=== PATIENT | male | born 1935 | race Caucasian/White ===

== ENCOUNTER 2016-09-01 12:02 | Emergency (ER) | payer OTHER ==
[2016-09-01 12:23] VITALS: BP 185/74; BMI 28.1
[2016-09-01] MEDS ORDERED: ZOFRAN INJ 4 MG VIAL IVP ONE (12:23)
[2016-09-01] MEDS ORDERED: ZOFRAN INJ 4 MG VIAL ONE (12:24)
[2016-09-01] MEDS ORDERED: NS 1000 ML 1,000 ML IV ONE (12:24)
--- NOTE | 2016-09-01 12:25 | DR.GENAD ---
HPI - HPI Comment HPI Comment: PATIENT OUT WORKING ON [employer] AND [employer]ROUNDING STARTED TO SPIN. LASTED OVER ONE HOUR. WAS WEAK AND SWEATY THEN HE CALL EMS. HIS VITALS WERE FINE EXCEPT FOR BP SLIGHTLY ELEVATED. DENIES CHEST PAIN. NO HEADACHE. GLUCOSE WAS NORMAL PER EMS. HE IS A DIABETIC. - Complaint/Symptoms Chief Complaint Doctors Comments: DIZZINESS. - Nurses notes reviewed Nurses Notes Review: Yes - Source History Provided: Patient - Mode of Arrival Mode of Arrival: Stretcher - Timing Came on: Suddenly - Duration Duration: Constant Duration: Hours - Severity Severity: Moderate PMH - PMH Past Medical History: Coronary Artery Disease, Diabetes, Hypertension, Kidney Stones Past Surgical History: Yes Surgical History: Angioplasty/Stents, Appendectomy, CABG/Valve Surgery, Lithotripsy, Other - Family History Family Medical History: Diabetes Mellitus, Heart Failure, Hypertension - Social History Do you use any recreational Drugs:: No ROS - Review of Systems Constitutional: Diaphoresis, Weakness, Fatigue. negative: Chills, Fever Eyes: No Symptoms Reported. negative: Eye Pain, Discharge ENTM: No Symptoms Reported. negative: Ear Pain, Nose Discharge, Nose Congestion , Throat Pain Respiratoy: Short of Breath. negative: Productive Cough, Non-Productive Cough, Wheezing, Hemoptysis Cardiovascular: No Symptoms Reported, Other (BRADYCARDIA). negative: Chest Pain , Palpitations Gastrointestinal/Abdominal: Nausea Genitourinary: No Symptoms Reported. negative: Dysuria, Frequency, Hematuria Neurological: Weakness, Dizziness. negative: Headache Musculoskeletal: No Symptoms Reported Integumentary: No Symptoms Reported Hematologic/Lymphatic: No Symptoms Reported Endocrine: No Symptoms Reported All Other Systems: Reviewed and Negative PE - Vital Signs Vitals: Temperature 98.9 F Pulse Rate 51 Respiratory Rate 18 Blood Pressure [Right Arm] 162/79 Blood Pressure [Left Arm] 118/58 Blood Pressure 185/74 O2 Sat by Pulse Oximetry 98 - General Limitations: No Limitations General Appearance: Alert - Head Head Exam: Normal Inspection - Eyes Eye exam: Normal Appearance - ENT ENT Exam: Normal External Ear Exam External Ear Exam: Normal External Inspection TM/Canal Exam: Bilateral Normal Nose Exam: Normal Nose Exam Mouth Exam: Normal Inspection Throat Exam: Normal Inspection - Neck Neck Exam: Trachea Midline - Chest Chest Inspection: Symmetric Chest Wall Rise - Respiratory Respiratory Exam: Normal Lung Sounds Bilat Respiratory Exam: Bilateral Clear to Auscultation - Cardiovascular Cardiovascular Exam: Regular Rate, Normal Rhythm, Normal Heart Sounds - Abdominal Exam Abdominal Exam: Normal Bowel Sounds, Soft. negative: Tenderness - Extremities Extremities Exam: Normal Inspection - Back Back Exam: Normal Inspection - Neurologic Neurological Exam: Alert, Oriented X3, CN II-XII Intact, Reflexes Normal. negative: Motor Sensory Deficit - Psychiatric Psychiatric Exam: Anxious - Skin Skin Exam: Diaphoresis MDM - Differential Diagnosis Differential Diagnosis: DIZZINESS, VERTIGO, [place], CVA, DEHYDRATION Course - Treatment Treatment: SEE ORDERS - Consultation Consultation Comments: DISCUSS WITH NEUROLOGIST IN [facility]. HOSPITALIST DR. ROMERO ACCEPTED PATIENT FOR TRANSFER. - Education/Counseling Education/Counseling: Patient, Family, Education Educated On: Diagnosis ROR - Labs Reviewed Laboratory Results Reviewed?: Yes Result Diagrams: 09/01/16 12:40 09/01/16 12:40 Laboratory: WBC 10.6 X10^3/uL (3.6-10.0) H 09/01/16 12:40 RBC 4.79 X10^6/uL (4.7-6.0) 09/01/16 12:40 Hgb 13.5 g/dL (13.5-18.0) 09/01/16 12:40 Hct 40.5 % (42.0-54.0) L 09/01/16 12:40 MCV 84.5 fL (80.0-100.0) 09/01/16 12:40 MCH 28.2 pg (27.0-34.0) 09/01/16 12:40 MCHC 33.3 g/dL (33.0-35.0) 09/01/16 12:40 RDW 14.6 % (11.6-16.5) 09/01/16 12:40 Plt Count 169 X10^3/uL (150.0-450.0) 09/01/16 12:40 MPV 9.1 fL (7.4-11.0) 09/01/16 12:40 Neut % 71.9 % (42.0-75.0) 09/01/16 12:40 Lymph % 16.1 % (21.0-51.0) L 09/01/16 12:40 [place] % 8.4 % (0.0-13.0) 09/01/16 12:40 Eos % 3.1 % (0.9-2.9) H 09/01/16 12:40 Baso % 0.5 % (0.2-1.0) 09/01/16 12:40 Neut # 7.6 x10^3/uL (2.2-4.8) H 09/01/16 12:40 Lymph # 1.7 X10^3/uL (1.3-2.9) 09/01/16 12:40 [place] # 0.9 x10^3/uL (0.3-0.8) H 09/01/16 12:40 Eos # 0.3 x10^3/uL (0.0-0.2) H 09/01/16 12:40 Baso # 0.1 X10^3/uL (0.0-0.1) 09/01/16 12:40 Absolute Nucleated RBC 0.0 /100WBC 09/01/16 12:40 Sodium 142 mmol/L (136-145) 09/01/16 12:40 Corrected Sodium 143 mmol/L (136-145) 09/01/16 12:40 Potassium 5.1 mmol/L (3.5-5.1) 09/01/16 12:40 Chloride 109 mmol/L (98-107) H 09/01/16 12:40 Carbon Dioxide 29.3 mmol/L (21-32) 09/01/16 12:40 BUN 18 mg/dL (7-18) 09/01/16 12:40 Creatinine 0.92 mg/dL (0.70-1.30) 09/01/16 12:40 Est GFR (MDRD) Af Amer > 60 (>60) 09/01/16 12:40 Est GFR (MDRD) Non-Af > 60 (>60) 09/01/16 12:40 Glucose 154 mg/dL (65-99) H 09/01/16 12:40 Calcium 9.0 mg/dL (8.5-10.1) 09/01/16 12:40 Corrected Calcium TNP 09/01/16 12:40 Total Bilirubin 0.40 mg/dL (0.2-1.0) 09/01/16 12:40 AST 18 Units/L (15-37) 09/01/16 12:40 ALT 27 Units/L (12-78) 09/01/16 12:40 Alkaline Phosphatase 79 Units/L (46-116) 09/01/16 12:40 Creatine Kinase 82 Units/L (39-308) 09/01/16 12:40 CK-MB (CK-2) 1.5 ng/mL (0-4.0) 09/01/16 12:40 CK/CKMB % Calc 1.8 % (<4) 09/01/16 12:40 Troponin I < 0.02 ng/mL (0-1.5) 09/01/16 12:40 B-Natriuretic Peptide 87.5 pg/mL (0-79) H 09/01/16 12:40 Total Protein 7.2 g/dL (6.4-8.2) 09/01/16 12:40 Albumin 3.9 g/dL (3.4-5.0) 09/01/16 12:40 Globulin 3.3 g/dL (2.5-4.5) 09/01/16 12:40 Albumin/Globulin Ratio 1.2 Ratio (1.1-2.1) 09/01/16 12:40 - XRAY XRAY Findings: REPORT DISCUSS WITH PATIENT AND HIS . 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
[2016-09-01 12:50] LABS: BASOPHILS # (AUTO) 0.1 X10^3/uL (0.0-0.1); BASOPHILS % (AUTO) 0.5 % (0.2-1.0); EOSINOPHILS # (AUTO) 0.3 x10^3/uL (0.0-0.2); EOSINOPHILS % (AUTO) 3.1 % (0.9-2.9); HEMATOCRIT 40.5 % (42.0-54.0); HEMOGLOBIN 13.5 g/dL (13.5-18.0); LYMPHOCYTES # (AUTO) 1.7 X10^3/uL (1.3-2.9); LYMPHOCYTES % (AUTO) 16.1 % (21.0-51.0); MEAN CORPUSCULAR HEMOGLOBIN 28.2 pg (27.0-34.0); MEAN CORPUSCULAR HGB CONC 33.3 g/dL (33.0-35.0); MEAN CORPUSCULAR VOLUME 84.5 fL (80.0-100.0); MEAN PLATELET VOLUME 9.1 fL (7.4-11.0); MONOCYTES # (AUTO) 0.9 x10^3/uL (0.3-0.8); MONOCYTES % (AUTO) 8.4 % (0.0-13.0); NEUTROPHILS # (AUTO) 7.6 x10^3/uL (2.2-4.8); NEUTROPHILS % (AUTO) 71.9 % (42.0-75.0); PLATELET COUNT 169 X10^3/uL (150.0-450.0); RED BLOOD COUNT 4.79 X10^6/uL (4.7-6.0); RED CELL DISTRIBUTION WIDTH 14.6 % (11.6-16.5); WHITE BLOOD COUNT 10.6 X10^3/uL (3.6-10.0)
[2016-09-01 13:11] LABS: BLOOD UREA NITROGEN 18 mg/dL (7-18); CARBON DIOXIDE 29.3 mmol/L (21-32); CHLORIDE 109 mmol/L (98-107); COR NA(FOR HYPERGLY) 143 mmol/L (136-145); CREATININE 0.92 mg/dL (0.70-1.30); GLUCOSE 154 mg/dL (65-99); SODIUM 142 mmol/L (136-145); TROPONIN I < 0.02 ng/mL (0-1.5); eGFR BLACK RACES > 60 (>60); eGFR NON BLACK RACES > 60 (>60)
[2016-09-01 13:12] LABS: B-TYPE NATRIURETIC PEPTIDE 87.5 pg/mL (0-79)
[2016-09-01 13:14] LABS: ALANINE AMINOTRANSFERASE 27 Units/L (12-78); ALBUMIN 3.9 g/dL (3.4-5.0); ALKALINE PHOSPHATASE 79 Units/L (46-116); ASPARTATE AMINO TRANSFERASE 18 Units/L (15-37); CKMB % 1.8 % (<4); CREATINE KINASE 82 Units/L (39-308); CREATINE KINASE MB 1.5 ng/mL (0-4.0); TOTAL PROTEIN 7.2 g/dL (6.4-8.2)
--- NOTE | 2016-09-01 13:19 | RAD ---
HISTORY: Shortness of breath Study: Chest one view Comparison: None Findings: The trachea is midline. The cardiac silhouette is unremarkable. The lungs are clear without focal infiltrate or effusion. The bony thorax is unremarkable. The patient is status post median sternot jenelle and CABG. IMPRESSION: 1. No acute cardiopulmonary disease. Reported By:
--- NOTE | 2016-09-01 13:25 | CT ---
HISTORY: Dizziness. Study: CT brain without contrast Comparison: CT head dated October 08, 2015. Technique: Multiple axial images of the brain were obtained from the skull base to the vertex without administr ation of IV contrast. Dose reduction techniques including Automated Exposure Control (AEC) and adju stment of mA and kV were utilized. Findings: Age related cortical atrophy and chronic small vessel ischemic changes. There are two new 8 mm hypod ense areas within the subcortical white matter of the right frontal lobe. No obvious associated georges a. These may represent interval lacunar infarcts. Remaining guerrero and white matter appears unremarkab le. Calcified choroid plexus. No acute intraparenchymal hemorrhage or mass can be identified. No ex tra-axial fluid collections are seen. The ventricular system is symmetric and nondilated. The extra cranial structures are grossly unremarkable. IMPRESSION: 1. There are two new 8 mm hypodense areas within the subcortical white matter of the right frontal lobe. No obvious associated edema. These may represent interval lacunar infarcts. However, acute isc hemia/infarction not entirely excluded. Recommend MRI of the brain for further characterization. 2. Other chronic findings as above. Reported By:
== END 2016-09-01 15:05 | disposition short-term general hospital (02) ==
LOC: ER 12:02
DX: I63.341 Cerebral infarction due to thrombosis of right cerebellar artery (principal); R00.1 Bradycardia, unspecified; R42 Dizziness and giddiness
CPT/HCPCS: 36415; 70450; 71010; 80053; 82550; 82553; 83880; 84484; 85025; 93005; 93010; 96365; 96374; 99284; 99285; J2405

== ENCOUNTER 2017-07-05 17:39 | Inpatient (IN) | payer OTHER ==
[2017-07-05] MEDS ORDERED: NS 1000 ML 2,000 ML IV ONE (18:29)
[2017-07-05 18:45] VITALS: BMI 27.6
[2017-07-05 18:51] LABS: BASOPHILS % (AUTO) 0.1 % (0.2-1.0); EOSINOPHILS # (AUTO) 0.2 x10^3/uL (0.0-0.2); EOSINOPHILS % (AUTO) 1.4 % (0.9-2.9); HEMATOCRIT 45.8 % (42.0-54.0); HEMOGLOBIN 15.1 g/dL (13.5-18.0); LYMPHOCYTES # (AUTO) 1.2 X10^3/uL (1.3-2.9); LYMPHOCYTES % (AUTO) 6.5 % (21.0-51.0); MEAN CORPUSCULAR HEMOGLOBIN 27.4 pg (27.0-34.0); MEAN CORPUSCULAR VOLUME 83.1 fL (80.0-100.0); MONOCYTES % (AUTO) 5.5 % (0.0-13.0); NEUTROPHILS # (AUTO) 15.4 x10^3/uL (2.2-4.8); NEUTROPHILS % (AUTO) 86.5 % (42.0-75.0); PLATELET COUNT 211 X10^3/uL (150.0-450.0); RED BLOOD COUNT 5.51 X10^6/uL (4.7-6.0); RED CELL DISTRIBUTION WIDTH 14.8 % (11.6-16.5); WHITE BLOOD COUNT 17.8 X10^3/uL (3.6-10.0)
[2017-07-05 19:02] LABS: ALANINE AMINOTRANSFERASE 12 Units/L (12-78); ALBUMIN 4.5 g/dL (3.4-5.0); ALKALINE PHOSPHATASE 82 Units/L (46-116); AMYLASE 65 Units/L (25-115); ASPARTATE AMINO TRANSFERASE 20 Units/L (15-37); BLOOD UREA NITROGEN 18 mg/dL (7-18); CALCIUM 9.4 mg/dL (8.5-10.1); CARBON DIOXIDE 26.6 mmol/L (21-32); CHLORIDE 104 mmol/L (98-107); CREATININE 0.96 mg/dL (0.70-1.30); LIPASE 293 Units/L (73-393); SODIUM 141 mmol/L (136-145); TOTAL PROTEIN 8.3 g/dL (6.4-8.2); eGFR BLACK RACES > 60 (>60); eGFR NON BLACK RACES > 60 (>60)
[2017-07-05] MEDS: NS 1000 ML 1,000 ML IV SCH ×2 (20:10→22:55)
[2017-07-05] MEDS ORDERED: DEMEROL INJ IVP PRN (20:42)
[2017-07-05] MEDS: ZOFRAN INJ 4 MG VIAL IVP PRN (20:52)
[2017-07-06 02:59] LABS: BILIRUBIN,URINE NEGATIVE (NEGATIVE); BLOOD/HEMOGLOBIN,URINE NEGATIVE (NEGATIVE); GLUCOSE, URINE NEGATIVE (NEGATIVE); KETONES,URINE 3+ (NEGATIVE); LEUKOCYTE ESTERASE ,URINE 1+ (NEGATIVE); NITRITES,URINE NEGATIVE (NEGATIVE); PROTEIN,URINE 2+ (NEGATIVE); UROBILINOGEN,URINE NORMAL (NORMAL)
[2017-07-06 03:05] LABS: APPEARANCE,URINE CLEAR (CLEAR); BACTERIA,URINE NEGATIVE /HPF (NEGATIVE); COLOR,URINE DARK YELLOW (YELLOW); RBC,URINE NONE SEEN /HPF (NONE SEEN); SQUAMOUS EPITHELIAL CELL,UR RARE /HPF (NEGATIVE)
[2017-07-06] MEDS: NS 1000 ML 1,000 ML IV SCH ×3 (04:20→23:28)
[2017-07-06 05:28] LABS: BASOPHILS % (AUTO) 0.2 % (0.2-1.0); EOSINOPHILS % (AUTO) 0.2 % (0.9-2.9); HEMATOCRIT 39.4 % (42.0-54.0); LYMPHOCYTES # (AUTO) 0.6 X10^3/uL (1.3-2.9); LYMPHOCYTES % (AUTO) 3.7 % (21.0-51.0); MEAN CORPUSCULAR HEMOGLOBIN 27.5 pg (27.0-34.0); MEAN CORPUSCULAR VOLUME 83.4 fL (80.0-100.0); MEAN PLATELET VOLUME 9.4 fL (7.4-11.0); MONOCYTES # (AUTO) 0.7 x10^3/uL (0.3-0.8); MONOCYTES % (AUTO) 4.2 % (0.0-13.0); NEUTROPHILS # (AUTO) 14.9 x10^3/uL (2.2-4.8); NEUTROPHILS % (AUTO) 91.7 % (42.0-75.0); PLATELET COUNT 179 X10^3/uL (150.0-450.0); RED BLOOD COUNT 4.73 X10^6/uL (4.7-6.0); RED CELL DISTRIBUTION WIDTH 14.8 % (11.6-16.5); WHITE BLOOD COUNT 16.2 X10^3/uL (3.6-10.0)
[2017-07-06 05:39] LABS: BAND NEUTROPHILS % 3 % (0-10); PLATELET MORPHOLOGY COMMENT NORMAL (NORMAL)
[2017-07-06 05:45] LABS: ALANINE AMINOTRANSFERASE 19 Units/L (12-78); ALBUMIN 3.2 g/dL (3.4-5.0); ALKALINE PHOSPHATASE 62 Units/L (46-116); ASPARTATE AMINO TRANSFERASE 18 Units/L (15-37); BLOOD UREA NITROGEN 21 mg/dL (7-18); CALCIUM 7.5 mg/dL (8.5-10.1); CHLORIDE 107 mmol/L (98-107); COR CA(FOR HYPOALB) 8.1 mg/dL (8.5-10.1); COR NA(FOR HYPERGLY) 142 mmol/L (136-145); CREATININE 0.79 mg/dL (0.70-1.30); SODIUM 141 mmol/L (136-145); TOTAL PROTEIN 6.4 g/dL (6.4-8.2); eGFR BLACK RACES > 60 (>60); eGFR NON BLACK RACES > 60 (>60)
[2017-07-06] MEDS ORDERED: PATIENT'S HOME MEDICATION (Albuterol Sulfate 2 PUFF) INH PRN (09:42)
[2017-07-06] MEDS ORDERED: AMARYL TAB 4 MG PO SCH (10:00)
--- NOTE | 2017-07-06 10:35 | CT ---
Indication: Abdominal pain Exam: CT abdomen and pelvis without contrast. Technique: Axial spiral images were obtained from lung bases through the pubic symphysis without cont rast. Coronal and sagittal multiplanar reconstructions were performed. Automated dose control was uti lized. Findings: There are subsegmental linear opacities along the lower lobes posteriorly which are more pr ominent . There is irregular pleural-based opacity along the left lung base extending along the diaph ragm laterally which has a slightly nodular appearance and is more prominent. No effusion is seen. Th e liver and spleen are normal size and density. The gallbladder, pancreas, and bile ducts are normal. The adrenals are normal. There is perirenal scarring around both kidneys which is unchanged with no hydronephrosis or renal stones. There is a 1.2 cm cortical cyst along the mid polar region on the lef t which is unchanged . No hydronephrosis or renal stones are seen. The ureters are normal caliber. Th ere are diverticula throughout the colon with no pericolonic inflammation. There is no bowel obstruct ion. The appendix is not well visualized and there is no pericecal inflammation. The prostate gland i s moderately enlarged and partially calcified. The bladder is unremarkable. Moderate degenerative nereyda nges are seen in the spine with no aggressive osseous lesion. Impression: Cortical scarring around both kidneys and a small left renal cyst which is unchanged with no hydronep hrosis and no CT evidence of urinary obstruction. Increasing subsegmental infiltrates or atelectasis along the lung bases posteriorly with an irregular , slightly nodular, opacity along the left hemidiaphragm laterally which is more prominent and could represent an infiltrate or possible developing mass in the area. Recommend a follow-up CT scan of the chest with contrast. Extensive diverticula throughout the colon with no pericolonic inflammation. Moderate heterogeneous enlargement of the prostate gland , recommend clinical follow-up. Reported By:
--- NOTE | 2017-07-06 10:57 | US ---
Exam: Right upper quadrant abdominal ultrasound History: 81-year-old male with upper abdominal pain. Comparison: None Findings: Liver is normal in size and echotexture with no focal abnormality seen. The gallbladder is normal in appearance with no cholelithiasis, wall thickening, or localized tendern ess. Common bile duct measures 3 mm in diameter. Right kidney measures 13.1 x 7.5 x 6.4 cm. No hydronephrosis or echogenic calculi are seen on the rig ht. IVC and visualized aspect of the pancreas are unremarkable as well. Impression: Unremarkable right upper quadrant abdominal ultrasound. Specifically, no evidence of cholelithiasis. Reported By:
[2017-07-06 11:11] LABS: HEMOGLOBIN A1C 6.8 %
[2017-07-06 12:17] LABS: CHOL/HDL RATIO 2.3 (0.0-5.0); FREE T4 (FREE THYROXINE) 0.96 ng/dL (0.76-1.46); MAGNESIUM 1.5 mg/dL (1.7-2.9); TSH (3RD GENERATION) 0.165 uIU/mL (0.358-3.74)
[2017-07-06] MEDS ORDERED: GLUCOPHAGE ONE ×2 (13:36→20:21)
[2017-07-06] MEDS: PEPCID 20 MG IV PREMIX* 20 MG/50 ML BAG IV SCH ×2 (13:43→20:32)
[2017-07-06] MEDS: FLONASE NASAL SPRAY ENOSTRIL SCH ×2 (13:45→20:40)
[2017-07-06] MEDS: NEURONTIN CAP 300 MG PO SCH ×3 (13:46→20:31)
[2017-07-06] MEDS: NORVASC TAB 5 MG PO SCH (13:46)
[2017-07-06] MEDS: GLUCOPHAGE PO SCH ×2 (13:46→20:31)
[2017-07-06] MEDS: PROTONIX INJ 40 MG VIAL IVP SCH ×2 (13:47→20:32)
[2017-07-06] MEDS: CIPRO IV 400 MG PREMIX* 400 MG/200 ML IV.SOLN. IV SCH ×2 (14:00→21:21)
[2017-07-06] MEDS ORDERED: POTASSIUM CHLORIDE LIQ 20 MEQ UDC PO PRN (20:20)
[2017-07-06] MEDS ORDERED: K-LYTE EFFERVESCENT PO PRN (20:20)
[2017-07-06] MEDS ORDERED: POTASSIUM CHL 60 MEQ/NS 0.45% 500 ML IV PRN (20:20)
[2017-07-06] MEDS ORDERED: POTASSIUM CHL 40 MEQ/NS 0.45% 500 ML IV PRN (20:20)
[2017-07-06] MEDS ORDERED: K-RIDER 10 MEQ/NS 100 ML 10 MEQ/100 ML BAG IV PRN (20:20)
[2017-07-06] MEDS: ZOFRAN INJ 4 MG VIAL IVP PRN (20:31)
[2017-07-06] MEDS: MAGNESIUM SULFATE 1 GM/100 mL PREMIX 1 GM/100 ML BAG IV PRN (23:29)
[2017-07-07] MEDS: MAGNESIUM SULFATE 1 GM/100 mL PREMIX 1 GM/100 ML BAG IV PRN (00:23)
[2017-07-07] MEDS: NS 1000 ML 1,000 ML IV SCH ×3 (06:06→18:04)
[2017-07-07 06:21] LABS: BASOPHILS # (AUTO) 0.1 X10^3/uL (0.0-0.1); BASOPHILS % (AUTO) 0.7 % (0.2-1.0); EOSINOPHILS # (AUTO) 0.2 x10^3/uL (0.0-0.2); EOSINOPHILS % (AUTO) 2.9 % (0.9-2.9); HEMATOCRIT 35.1 % (42.0-54.0); HEMOGLOBIN 11.6 g/dL (13.5-18.0); LYMPHOCYTES # (AUTO) 1.3 X10^3/uL (1.3-2.9); LYMPHOCYTES % (AUTO) 18.1 % (21.0-51.0); MEAN CORPUSCULAR HEMOGLOBIN 27.6 pg (27.0-34.0); MEAN CORPUSCULAR HGB CONC 33.1 g/dL (33.0-35.0); MEAN CORPUSCULAR VOLUME 83.2 fL (80.0-100.0); MEAN PLATELET VOLUME 9.4 fL (7.4-11.0); MONOCYTES # (AUTO) 0.8 x10^3/uL (0.3-0.8); MONOCYTES % (AUTO) 11.9 % (0.0-13.0); NEUTROPHILS # (AUTO) 4.7 x10^3/uL (2.2-4.8); NEUTROPHILS % (AUTO) 66.4 % (42.0-75.0); PLATELET COUNT 148 X10^3/uL (150.0-450.0); RED BLOOD COUNT 4.22 X10^6/uL (4.7-6.0); RED CELL DISTRIBUTION WIDTH 14.7 % (11.6-16.5); WHITE BLOOD COUNT 7.1 X10^3/uL (3.6-10.0)
[2017-07-07 06:54] LABS: ALANINE AMINOTRANSFERASE 18 Units/L (12-78); ALKALINE PHOSPHATASE 54 Units/L (46-116); ASPARTATE AMINO TRANSFERASE 15 Units/L (15-37); BLOOD UREA NITROGEN 12 mg/dL (7-18); CALCIUM 7.8 mg/dL (8.5-10.1); CARBON DIOXIDE 25.3 mmol/L (21-32); CHLORIDE 109 mmol/L (98-107); COR CA(FOR HYPOALB) 8.6 mg/dL (8.5-10.1); CREATININE 0.77 mg/dL (0.70-1.30); MAGNESIUM 1.9 mg/dL (1.7-2.9); SODIUM 143 mmol/L (136-145); eGFR BLACK RACES > 60 (>60); eGFR NON BLACK RACES > 60 (>60)
[2017-07-07] MEDS ORDERED: GLUCOPHAGE ONE ×2 (07:59→20:14)
[2017-07-07] MEDS: NORVASC TAB 5 MG PO SCH (09:22)
[2017-07-07] MEDS: FLONASE NASAL SPRAY ENOSTRIL SCH ×2 (09:22→20:26)
[2017-07-07] MEDS: GLUCOPHAGE PO SCH ×2 (09:22→20:25)
[2017-07-07] MEDS: CIPRO IV 400 MG PREMIX* 400 MG/200 ML IV.SOLN. IV SCH ×2 (09:22→21:29)
[2017-07-07] MEDS: NEURONTIN CAP 300 MG PO SCH ×2 (09:22→20:25)
[2017-07-07] MEDS: PEPCID 20 MG IV PREMIX* 20 MG/50 ML BAG IV SCH ×2 (09:23→20:25)
[2017-07-07] MEDS: PROTONIX INJ 40 MG VIAL IVP SCH ×2 (09:23→20:25)
[2017-07-07] MEDS: SNACK - Diabetic Appropriate PO SCH ×2 (09:51→20:26)
[2017-07-07] MEDS: PROVENTIL NEB TX 0.083% 2.5MG/ 3ML NEB PRN ×2 (11:50→16:39)
--- NOTE | 2017-07-07 12:06 | RAD ---
History: Shortness of breath Study: Portable AP chest Comparison: September 01, 2016 Findings: The heart size is prominent status post old sternotomy for coronary artery bypass grafting surgery. The lungs are grossly clear. There is no edema or effusion. Impression: No acute cardiopulmonary disease Reported By:
[2017-07-07 13:02] LABS: CKMB % 1.2 % (<4); CREATINE KINASE 83 Units/L (39-308); CREATINE KINASE MB < 1.0 ng/mL (0-4.0); TROPONIN I 0.07 ng/mL (0-1.5)
[2017-07-07] MEDS ORDERED: NS 100 ML IV 100 ML IV ONE (15:11)
--- NOTE | 2017-07-07 15:58 | CT ---
CT CHEST WITH IV CONTRAST HISTORY: Shortness a Comparison: None Technique: Multiple axial images of the chest were obtained from the thoracic inlet to the upper abdo men after the administration of IV contrast.Dose reduction techniques including Automated Exposure Co ntrol (AEC) and adjustment of mA and kV were utlized. Findings: Cardiomegaly. Severe three-vessel coronary artery calcification. Status post median sternotomy.. No p ericardial effusion. are bowel and bilateral hilar lymph nodes are present. Although not optimized t o detect pulmonary embolism, no large central pulmonary emboli are seen. Bilateral gynecomastia. Trace bilateral pleural effusions patchy regions of atelectasis. Focal consolidation region the left lower lobe. Interlobular septal thickening some patchy ground-glass in the left upper lobe. Airways are patent. No suspicious pulmonary nodules or masses. Limited images of the upper abdomen are unremarkable. No aggressive osseous lesions. IMPRESSION: 1. Trace pleural effusions, patchy bilateral ground-glass and very small left lower lobe consolidati on consistent with infection. This is superimposed upon what appears to be mild pulmonary edema and c ardiomegaly. 2. Severe coronary artery calcification. Reported By:
[2017-07-07 16:49] LABS: CKMB % 1.2 % (<4); CREATINE KINASE 84 Units/L (39-308); CREATINE KINASE MB < 1.0 ng/mL (0-4.0); TROPONIN I 0.06 ng/mL (0-1.5)
[2017-07-07 21:14] LABS: CKMB % 1.2 % (<4); CREATINE KINASE 87 Units/L (39-308); CREATINE KINASE MB < 1.0 ng/mL (0-4.0); TROPONIN I 0.05 ng/mL (0-1.5)
--- NOTE | 2017-07-07 21:41 | PCM.PROG ---
Progress Note - Progress Note for Day of Date: 07/06/17 - Subjective Subjective: WAS ADMITTED FOR LEFT UPPER QUADRANT PAIN. TODAY, HE IS ALERT AND ORIENTED, LYING IN BED ON MORNING ROUNDS. SPOUSE IS AT BEDSIDE. TODAY , HE IS NOTED WITH COMPLAINTS OF DIFFUSE ABDOMINAL PAIN AND DIARRHEA. ON EXAMINATION, HEART IS REGULAR IN RATE AND RHYTHM. BILATERAL LUNGS ARE NOTED WITH DIMINISHED LUNG SOUNDS THROUHOUT. ABDOMEN IS DISTENDED AND NOTED WITH MODERATE TENDERNESS TO PALPATION. HYPERACTIVE BOWEL SOUNDS ARE NOTED IN ALL QUADRANTS. THERE IS NORMAL RANGE OF MOTION NOTED TO ALL EXTREMITIES. HIS VITALS THIS MORNING ARE 99.3-68-18-93%-115/54. LABS WERE OBTAINED. ABNORMAL LAB VALUES INCLUDE THE FOLLOWING: WBC 16.2, HGB 13.0, HCT 39.4, BUN 21, GLUCOSE 160, CALCIUM 7.5, MAGNESIUM 1.5, ALBUMIN 3.2, VITAMIN B12 1889, TSH 3RD GEN 0.165. A GALLBLADDER US WAS OBTAINED TODAY AND IS UNREMARKABLE. AN ABDOMEN/PELVIS CT WITH CONTRAST WAS OBTAINED TODAY AND REVEALED CORTICAL SCARRING [place] BOTH KIDNEYS AND A SMALL LEFT RENAL CYST WHICH IS UNCHANGED WITH NO HYDRONEPHROSIS AND NO CT EVIDENCE OF URINARY OBSTRUCTION. INCREASING SUBSEGMENTAL INFILTRATES OR ATELECTASIS ALONG THE LUNG BASES POSTERIORLY WITH AN IRREGLULAR, SLIGHTLY NODULAR, OPACITY ALONG THE LEFT HEMIDIAPHRAGM LATERLLY WHICH IS MORE PROMINENT AND COULD REPRESENT AN INFILTRATE OR POSSIBLE DEVELOPING MASS IN THE AREA. EXTENSIVE DIVERTICULA THROUGHOUT THE COLON WITH NO PERICOLONIC INFLAMMATION. MODERATE HETEROGENOUS ENLARGEMENT OF THE PROSTATE GLAND. TODAY, WE WILL OBTAIN STOOL STUDIES AND START CIPRO 400MG IV Q12H. OTHERWISE, WE WILL CONTINUE WITH CURRENT PLAN OF CARE. WE PLAN TO FOLLOW UP WITH AM LABS AND CONTINUE TO MONITOR PATIENT. - Past Medical Family Social History Past Med/Fam/Surg Hx: No changes since H&P Allergies: Allergies penicillin G Adverse Reaction (Verified 07/05/17 18:34) - Review of Systems ROS: No change since H&P - Vital Signs and I&O's Vital Signs: Temperature 99.9 F Pulse Rate [Right Brachial] 79 Pulse Rate 62 Respiratory Rate 20 Blood Pressure [Right Arm] 147/69 Blood Pressure [Left Arm] 118/58 Blood Pressure 185/74 O2 Sat by Pulse Oximetry 93 Intake and Output: Intake & Output 07/05/17 07/06/17 07/07/17 07/08/17 11:59 11:59 11:59 11:59 Intake Total 0 5052 1800 Output Total 965 900 Balance 0 4087 900 - Physical Exam Oriented: Normal Eyes: Normal Ear: Normal Nose: Normal Throat: Normal Respiratory: Generalized, Diminished Cardiovascular: Normal : Normal Auscultation: Bowel Sounds: Normal Palpation: Normal Tenderness: Diffuse, Moderate. negative: Rebound, Guarding, Rigidity Skin: Normal Musculoskeletal: Normal Psychiatric: Normal Mood Description: Calm Affect: Normal Speech Pattern: Clear, Appropriate - Laboratory and Diagnostics Result Diagrams: 07/07/17 06:05 07/07/17 05:20 Labs: Laboratory WBC 7.1 X10^3/uL (3.6-10.0) D 07/07/17 06:05 RBC 4.22 X10^6/uL (4.7-6.0) L 07/07/17 06:05 Hgb 11.6 g/dL (13.5-18.0) L 07/07/17 06:05 Hct 35.1 % (42.0-54.0) L 07/07/17 06:05 MCV 83.2 fL (80.0-100.0) 07/07/17 06:05 MCH 27.6 pg (27.0-34.0) 07/07/17 06:05 MCHC 33.1 g/dL (33.0-35.0) 07/07/17 06:05 RDW 14.7 % (11.6-16.5) 07/07/17 06:05 Plt Count 148 X10^3/uL (150.0-450.0) L 07/07/17 06:05 Plt Count Comment Adequate (ADEQUATE) 07/06/17 04:50 MPV 9.4 fL (7.4-11.0) 07/07/17 06:05 Neut % (Auto) 66.4 % (42.0-75.0) 07/07/17 06:05 Lymph % (Auto) 18.1 % (21.0-51.0) L 07/07/17 06:05 [place] % (Auto) 11.9 % (0.0-13.0) 07/07/17 06:05 Eos % (Auto) 2.9 % (0.9-2.9) 07/07/17 06:05 Baso % (Auto) 0.7 % (0.2-1.0) 07/07/17 06:05 Neut # (Auto) 4.7 x10^3/uL (2.2-4.8) 07/07/17 06:05 Lymph # (Auto) 1.3 X10^3/uL (1.3-2.9) 07/07/17 06:05 [place] # (Auto) 0.8 x10^3/uL (0.3-0.8) 07/07/17 06:05 Eos # (Auto) 0.2 x10^3/uL (0.0-0.2) 07/07/17 06:05 Baso # (Auto) 0.1 X10^3/uL (0.0-0.1) 07/07/17 06:05 Absolute Nucleated RBC 0.0 /100WBC 07/07/17 06:05 Total Counted 100 07/06/17 04:50 Neutrophils % (Manual) 89 % (39-76) H 07/06/17 04:50 Band Neutrophils % 3 % (0-10) 07/06/17 04:50 Lymphocytes % (Manual) 6 % (13-43) L 07/06/17 04:50 Monocytes % (Manual) 3 % (4-9) L 07/06/17 04:50 Plt Morphology Comment Normal (NORMAL) 07/06/17 04:50 RBC Morphology Normal (NORMAL) 07/06/17 04:50 Sodium 143 mmol/L (136-145) 07/07/17 05:20 Corrected Sodium TNP 07/07/17 05:20 Potassium 3.5 mmol/L (3.5-5.1) 07/07/17 05:20 Chloride 109 mmol/L (98-107) H 07/07/17 05:20 Carbon Dioxide 25.3 mmol/L (21-32) 07/07/17 05:20 BUN 12 mg/dL (7-18) 07/07/17 05:20 Creatinine 0.77 mg/dL (0.70-1.30) 07/07/17 05:20 Est GFR (MDRD) Af Amer > 60 (>60) 07/07/17 05:20 Est GFR (MDRD) Non-Af > 60 (>60) 07/07/17 05:20 Glucose 77 mg/dL (65-99) 07/07/17 05:20 POC Glucose (mg/dL) 138 mg/dL (65-99) H 07/07/17 20:15 Hemoglobin A1c 6.8 % 07/06/17 10:45 Calcium 7.8 mg/dL (8.5-10.1) L 07/07/17 05:20 Corrected Calcium 8.6 mg/dL (8.5-10.1) 07/07/17 05:20 Magnesium 1.9 mg/dL (1.7-2.9) 07/07/17 05:20 Ferritin 41 ng/mL (26-388) 07/06/17 10:45 Total Bilirubin 0.20 mg/dL (0.2-1.0) 07/07/17 05:20 AST 15 Units/L (15-37) 07/07/17 05:20 ALT 18 Units/L (12-78) 07/07/17 05:20 Alkaline Phosphatase 54 Units/L (46-116) 07/07/17 05:20 Creatine Kinase 87 Units/L (39-308) 07/07/17 20:36 CK-MB (CK-2) < 1.0 ng/mL (0-4.0) 07/07/17 20:36 CK/CKMB % Calc 1.2 % (<4) 07/07/17 20:36 Troponin I 0.05 ng/mL (0-1.5) 07/07/17 20:36 Total Protein 6.0 g/dL (6.4-8.2) L 07/07/17 05:20 Albumin 3.0 g/dL (3.4-5.0) L 07/07/17 05:20 Globulin 3.0 g/dL (2.5-4.5) 07/07/17 05:20 Albumin/Globulin Ratio 1.0 Ratio (1.1-2.1) L 07/07/17 05:20 Triglycerides 62 mg/dL (0-150) 07/06/17 10:45 Cholesterol 103 mg/dL (0-200) 07/06/17 10:45 LDL Cholesterol, Calc 47 mg/dL (0-100) 07/06/17 10:45 HDL Cholesterol 44 mg/dL (40-60) 07/06/17 10:45 Cholesterol/HDL Ratio 2.3 (0.0-5.0) 07/06/17 10:45 Amylase 65 Units/L (25-115) 07/05/17 18:40 Lipase 293 Units/L (73-393) 07/05/17 18:40 Vitamin B12 1889 pg/mL (193-986) H 07/06/17 10:45 Folate 15.1 ng/mL (>8.6) 07/06/17 10:45 Free T4 0.96 ng/dL (0.76-1.46) 07/06/17 10:45 TSH 3rd Generation 0.165 uIU/mL (0.358-3.74) L 07/06/17 10:45 Specimen Type Clean catch urine 07/06/17 01:19 Urine Color Dark yellow (YELLOW) 07/06/17 01:19 Urine Appearance Clear (CLEAR) 07/06/17 01:19 Urine pH 5.0 (5.0 - 8.0) 07/06/17 01:19 Ur Specific [place] 1.020 (1.000-1.030) 07/06/17 01:19 Urine Protein 2+ (NEGATIVE) 07/06/17 01:19 Urine Glucose (UA) Negative (NEGATIVE) 07/06/17 01:19 Urine Ketones 3+ (NEGATIVE) 07/06/17 01:19 Urine Occult Blood Negative (NEGATIVE) 07/06/17 01:19 Urine Nitrite Negative (NEGATIVE) 07/06/17 01:19 Urine Bilirubin Negative (NEGATIVE) 07/06/17 01:19 Urine Urobilinogen Normal (NORMAL) 07/06/17 01:19 Ur Leukocyte Esterase 1+ (NEGATIVE) 07/06/17 01:19 Urine RBC None seen /HPF (NONE SEEN) 07/06/17 01:19 Urine WBC 0-2 /HPF (NONE SEEN) 07/06/17 01:19 Ur Squamous Epith Cells Rare /HPF (NEGATIVE) 07/06/17 01:19 Urine Bacteria Negative /HPF (NEGATIVE) 07/06/17 01:19 Ur Culture Indicated? No/not indicated 07/06/17 01:19 - Plan (1) Abdominal pain Status: Acute Qualifiers: Abdominal location: generalized Qualified Code(s): R10.84 - Generalized abdominal pain Plan: CIPRO 400MG IV Q12H, PEPCID IV, PROTONIX IV, DEMEROL IV PRN PAIN, CONTINUE TO MONITOR (2) Diarrhea Status: Acute Qualifiers: Diarrhea type: presumed infectious Qualified Code(s): R19.7 - Diarrhea, unspecified Plan: STOOL STUDIES, CONTINUE TO MONITOR
[2017-07-07] MEDS: PROVENTIL NEB TX 0.083% 2.5MG/ 3ML NEB SCH (21:48)
[2017-07-08] MEDS: TYLENOL 325 MG TAB PO PRN ×3 (00:37→17:34)
[2017-07-08 05:14] LABS: BASOPHILS % (AUTO) 0.3 % (0.2-1.0); EOSINOPHILS # (AUTO) 0.2 x10^3/uL (0.0-0.2); HEMATOCRIT 33.7 % (42.0-54.0); HEMOGLOBIN 11.2 g/dL (13.5-18.0); LYMPHOCYTES # (AUTO) 1.8 X10^3/uL (1.3-2.9); LYMPHOCYTES % (AUTO) 18.2 % (21.0-51.0); MEAN CORPUSCULAR HEMOGLOBIN 27.8 pg (27.0-34.0); MEAN CORPUSCULAR HGB CONC 33.1 g/dL (33.0-35.0); MEAN PLATELET VOLUME 8.8 fL (7.4-11.0); MONOCYTES # (AUTO) 1.3 x10^3/uL (0.3-0.8); MONOCYTES % (AUTO) 12.5 % (0.0-13.0); NEUTROPHILS # (AUTO) 6.8 x10^3/uL (2.2-4.8); PLATELET COUNT 150 X10^3/uL (150.0-450.0); RED BLOOD COUNT 4.01 X10^6/uL (4.7-6.0); RED CELL DISTRIBUTION WIDTH 15.3 % (11.6-16.5); WHITE BLOOD COUNT 10.1 X10^3/uL (3.6-10.0)
[2017-07-08 05:35] LABS: ALANINE AMINOTRANSFERASE 17 Units/L (12-78); ALBUMIN 2.7 g/dL (3.4-5.0); ALKALINE PHOSPHATASE 65 Units/L (46-116); ASPARTATE AMINO TRANSFERASE 15 Units/L (15-37); BLOOD UREA NITROGEN 11 mg/dL (7-18); CALCIUM 7.9 mg/dL (8.5-10.1); CARBON DIOXIDE 27.2 mmol/L (21-32); CHLORIDE 107 mmol/L (98-107); COR CA(FOR HYPOALB) 8.9 mg/dL (8.5-10.1); CREATININE 0.83 mg/dL (0.70-1.30); SODIUM 141 mmol/L (136-145); TOTAL PROTEIN 5.8 g/dL (6.4-8.2); eGFR BLACK RACES > 60 (>60); eGFR NON BLACK RACES > 60 (>60)
--- NOTE | 2017-07-08 07:24 | RAD ---
HISTORY: Shortness of breath Study: Chest AP portable Comparison: 07/07/2017 plain film and chest CT Findings: The patient is status post median sternotomy and CABG. The heart is enlarged. No definite congestive heart failure is identified. No acute alveolar infiltrates are identified. A minimal left pleural eff usion is likely present. The bony thorax is unremarkable. IMPRESSION: Moderate cardiomegaly without congestive heart failure Minimal left pleural effusion Reported By:
[2017-07-08] MEDS ORDERED: GLUCOPHAGE ONE ×2 (09:02→21:00)
[2017-07-08] MEDS: PROVENTIL NEB TX 0.083% 2.5MG/ 3ML NEB SCH ×4 (09:04→20:09)
[2017-07-08] MEDS: CIPRO IV 400 MG PREMIX* 400 MG/200 ML IV.SOLN. IV SCH ×2 (10:04→21:55)
[2017-07-08] MEDS: PROTONIX INJ 40 MG VIAL IVP SCH ×2 (10:04→21:29)
[2017-07-08] MEDS: GLUCOPHAGE PO SCH ×2 (10:04→21:29)
[2017-07-08] MEDS: PEPCID 20 MG IV PREMIX* 20 MG/50 ML BAG IV SCH ×2 (10:04→21:29)
[2017-07-08] MEDS: NORVASC TAB 5 MG PO SCH (10:05)
[2017-07-08] MEDS: NEURONTIN CAP 300 MG PO SCH ×2 (10:05→21:29)
[2017-07-08] MEDS: FLONASE NASAL SPRAY ENOSTRIL SCH ×2 (10:09→21:30)
[2017-07-08] MEDS: NS 1000 ML 1,000 ML IV SCH ×2 (10:43→13:22)
[2017-07-08] MEDS: FORTAZ or TAZICEF INJ 1 GM in NS 100 ML IV + SPIKE MINIBAG* 100 ML IV SCH ×2 (16:56→22:56)
--- NOTE | 2017-07-08 18:14 | PCM.PROG ---
Progress Note - Progress Note for Day of Date: 07/07/17 - Subjective Subjective: WAS ADMITTED FOR LEFT UPPER QUADRANT PAIN. TODAY, HE IS ALERT AND ORIENTED, LYING IN BED ON MORNING ROUNDS. SPOUSE IS AT BEDSIDE. TODAY , HE REPORTS THAT ABDOMINAL PAIN IS SLIGHTLY IMPROVED SINCE YESTERDAY. HE COMPLAINS OF SHORTNESS OF BREATH, NON-PRODUCTIVE COUGH, AND CHEST PAIN UPON ROUNDS. STAFF REPORTS THAT HIS OXYGEN SATURATIONS HAVE BEEN IN THE LOW 90S ON ROOM AIR. ON EXAMINATION, HEART IS REGULAR IN RATE AND RHYTHM. BILATERAL LUNGS ARE NOTED WITH DIMINISHED LUNG SOUNDS THROUHOUT. HE IS CURRENTLY UTILIZING OXYGEN VIA NASAL CANNUAL AT 2L/MIN. ABDOMEN IS ROUND, SOFT, AND NOTED WITH MILD TENDERNESS TO PALPATION. NORMAL BOWEL SOUNDS ARE NOTED IN ALL QUADRANTS. THERE IS NORMAL RANGE OF MOTION NOTED TO ALL EXTREMITIES. HIS VITALS THIS MORNING ARE 99.2-58-20-93%-150/68. LABS WERE OBTAINED. ABNORMAL LAB VALUES INCLUDE THE FOLLOWING: WBC DECREASED FROM 16.2 TO 7.1, RBC 4.22, HGB 11.6, HCT 35.1, PLT COUNT 148, CHLORIDE 109, CALCIUM 7.8, TOTAL PROTEIN 6.0, ALBUMIN 3.0. A CHEST CT WITH CONTRAST WAS OBTAINED TODAY AND REVEALED TRACE PLEURAL EFFUSIONS, PATCHY BILATERAL GROUND GLASS AND VERY SMALL LEFT LOWER LOBE CONSOLIDATION CONSISTENT WITH INFECTION. THIS IS SUPERIMPOSED UPON WHAT APPEARS TO BE MILD PULMONARY EDEMA AND CARDIOMEGALY. SEVERE CORONARY ARTERY CALCIFICATION. WE WILL OBTAIN SERIAL CARDIAC ENZYMES AND EKGS TODAY AND START RESPIRATORY TREATMENTS. OTHERWISE, WE WILL CONTINUE WITH CURRENT ANTIBIOTICS AND PLAN OF CARE. WE PLAN TO FOLLOW UP WITH AM LABS AND CONTINUE TO MONITOR PATIENT. - Past Medical Family Social History Past Med/Fam/Surg Hx: No changes since H&P Allergies: Allergies penicillin G Adverse Reaction (Verified 07/05/17 18:34) - Review of Systems ROS: No change since H&P - Vital Signs and I&O's Vital Signs: Temperature 99.3 F Pulse Rate [Right Brachial] 81 Pulse Rate 85 Respiratory Rate 16 Blood Pressure [Right Arm] 159/70 Blood Pressure [Left Arm] 118/58 Blood Pressure 185/74 O2 Sat by Pulse Oximetry 94 Intake and Output: Intake & Output 07/06/17 07/07/17 07/08/17 07/09/17 11:59 11:59 11:59 11:59 Intake Total 0 5052 3020 2980 Output Total 965 2025 500 Balance 0 4087 995 2480 - Physical Exam Oriented: Normal Eyes: Normal Ear: Normal Nose: Normal Throat: Normal Respiratory: Generalized, Diminished Cardiovascular: Normal : Normal Auscultation: Bowel Sounds: Normal Palpation: Normal Tenderness: Diffuse, Moderate. negative: Rebound, Guarding, Rigidity Skin: Normal Musculoskeletal: Normal Psychiatric: Normal Mood Description: Calm Affect: Normal Speech Pattern: Clear, Appropriate - Laboratory and Diagnostics Result Diagrams: 07/08/17 04:50 07/08/17 04:50 Labs: 07/07/17 17:53 Blood Blood Culture - Preliminary 07/07/17 17:47 Blood Blood Culture - Preliminary 07/08/17 10:15 Sputum - Expectorated Sputum - Final Laboratory WBC 10.1 X10^3/uL (3.6-10.0) H 07/08/17 04:50 RBC 4.01 X10^6/uL (4.7-6.0) L 07/08/17 04:50 Hgb 11.2 g/dL (13.5-18.0) L 07/08/17 04:50 Hct 33.7 % (42.0-54.0) L 07/08/17 04:50 MCV 84.0 fL (80.0-100.0) 07/08/17 04:50 MCH 27.8 pg (27.0-34.0) 07/08/17 04:50 MCHC 33.1 g/dL (33.0-35.0) 07/08/17 04:50 RDW 15.3 % (11.6-16.5) 07/08/17 04:50 Plt Count 150 X10^3/uL (150.0-450.0) 07/08/17 04:50 Plt Count Comment Adequate (ADEQUATE) 07/06/17 04:50 MPV 8.8 fL (7.4-11.0) 07/08/17 04:50 Neut % (Auto) 67.0 % (42.0-75.0) 07/08/17 04:50 Lymph % (Auto) 18.2 % (21.0-51.0) L 07/08/17 04:50 [place] % (Auto) 12.5 % (0.0-13.0) 07/08/17 04:50 Eos % (Auto) 2.0 % (0.9-2.9) 07/08/17 04:50 Baso % (Auto) 0.3 % (0.2-1.0) 07/08/17 04:50 Neut # (Auto) 6.8 x10^3/uL (2.2-4.8) H 07/08/17 04:50 Lymph # (Auto) 1.8 X10^3/uL (1.3-2.9) 07/08/17 04:50 [place] # (Auto) 1.3 x10^3/uL (0.3-0.8) H 07/08/17 04:50 Eos # (Auto) 0.2 x10^3/uL (0.0-0.2) 07/08/17 04:50 Baso # (Auto) 0.0 X10^3/uL (0.0-0.1) 07/08/17 04:50 Absolute Nucleated RBC 0.0 /100WBC 07/08/17 04:50 Total Counted 100 07/06/17 04:50 Neutrophils % (Manual) 89 % (39-76) H 07/06/17 04:50 Band Neutrophils % 3 % (0-10) 07/06/17 04:50 Lymphocytes % (Manual) 6 % (13-43) L 07/06/17 04:50 Monocytes % (Manual) 3 % (4-9) L 07/06/17 04:50 Plt Morphology Comment Normal (NORMAL) 07/06/17 04:50 RBC Morphology Normal (NORMAL) 07/06/17 04:50 Sodium 141 mmol/L (136-145) 07/08/17 04:50 Corrected Sodium TNP 07/08/17 04:50 Potassium 3.9 mmol/L (3.5-5.1) 07/08/17 04:50 Chloride 107 mmol/L (98-107) 07/08/17 04:50 Carbon Dioxide 27.2 mmol/L (21-32) 07/08/17 04:50 BUN 11 mg/dL (7-18) 07/08/17 04:50 Creatinine 0.83 mg/dL (0.70-1.30) 07/08/17 04:50 Est GFR (MDRD) Af Amer > 60 (>60) 04/19/18 04:50 Est GFR (MDRD) Non-Af > 60 (>60) 07/08/17 04:50 Glucose 85 mg/dL (65-99) 07/08/17 04:50 POC Glucose (mg/dL) 108 mg/dL (65-99) H 07/08/17 09:07 Hemoglobin A1c 6.8 % 07/06/17 10:45 Calcium 7.9 mg/dL (8.5-10.1) L 07/08/17 04:50 Corrected Calcium 8.9 mg/dL (8.5-10.1) 07/08/17 04:50 Magnesium 1.9 mg/dL (1.7-2.9) 07/07/17 05:20 Ferritin 41 ng/mL (26-388) 07/06/17 10:45 Total Bilirubin 0.30 mg/dL (0.2-1.0) 07/08/17 04:50 AST 15 Units/L (15-37) 07/08/17 04:50 ALT 17 Units/L (12-78) 07/08/17 04:50 Alkaline Phosphatase 65 Units/L (46-116) 07/08/17 04:50 Creatine Kinase 87 Units/L (39-308) 07/07/17 20:36 CK-MB (CK-2) < 1.0 ng/mL (0-4.0) 07/07/17 20:36 CK/CKMB % Calc 1.2 % (<4) 07/07/17 20:36 Troponin I 0.05 ng/mL (0-1.5) 07/07/17 20:36 Total Protein 5.8 g/dL (6.4-8.2) L 07/08/17 04:50 Albumin 2.7 g/dL (3.4-5.0) L 07/08/17 04:50 Globulin 3.1 g/dL (2.5-4.5) 07/08/17 04:50 Albumin/Globulin Ratio 0.9 Ratio (1.1-2.1) L 07/08/17 04:50 Triglycerides 62 mg/dL (0-150) 07/06/17 10:45 Cholesterol 103 mg/dL (0-200) 07/06/17 10:45 LDL Cholesterol, Calc 47 mg/dL (0-100) 07/06/17 10:45 HDL Cholesterol 44 mg/dL (40-60) 07/06/17 10:45 Cholesterol/HDL Ratio 2.3 (0.0-5.0) 07/06/17 10:45 Amylase 65 Units/L (25-115) 07/05/17 18:40 Lipase 293 Units/L (73-393) 07/05/17 18:40 Vitamin B12 1889 pg/mL (193-986) H 07/06/17 10:45 Folate 15.1 ng/mL (>8.6) 07/06/17 10:45 Free T4 0.96 ng/dL (0.76-1.46) 07/06/17 10:45 TSH 3rd Generation 0.165 uIU/mL (0.358-3.74) L 07/06/17 10:45 Specimen Type Clean catch urine 07/06/17 01:19 Urine Color Dark yellow (YELLOW) 07/06/17 01:19 Urine Appearance Clear (CLEAR) 07/06/17 01:19 Urine pH 5.0 (5.0 - 8.0) 07/06/17 01:19 Ur Specific [place] 1.020 (1.000-1.030) 07/06/17 01:19 Urine Protein 2+ (NEGATIVE) 07/06/17 01:19 Urine Glucose (UA) Negative (NEGATIVE) 07/06/17 01:19 Urine Ketones 3+ (NEGATIVE) 07/06/17 01:19 Urine Occult Blood Negative (NEGATIVE) 07/06/17 01:19 Urine Nitrite Negative (NEGATIVE) 07/06/17 01:19 Urine Bilirubin Negative (NEGATIVE) 07/06/17 01:19 Urine Urobilinogen Normal (NORMAL) 07/06/17 01:19 Ur Leukocyte Esterase 1+ (NEGATIVE) 07/06/17 01:19 Urine RBC None seen /HPF (NONE SEEN) 07/06/17 01:19 Urine WBC 0-2 /HPF (NONE SEEN) 07/06/17 01:19 Ur Squamous Epith Cells Rare /HPF (NEGATIVE) 07/06/17 01:19 Urine Bacteria Negative /HPF (NEGATIVE) 07/06/17 01:19 Ur Culture Indicated? No/not indicated 07/06/17 01:19 - Plan (1) Pneumonia Status: Acute Qualifiers: Pneumonia type: due to unspecified organism (2) Abdominal pain Status: Acute Qualifiers: Abdominal location: generalized Qualified Code(s): R10.84 - Generalized abdominal pain Plan: CIPRO 400MG IV Q12H, PEPCID IV, PROTONIX IV, DEMEROL IV PRN PAIN, CONTINUE TO MONITOR (3) Diarrhea Status: Acute Qualifiers: Diarrhea type: presumed infectious Qualified Code(s): R19.7 - Diarrhea, unspecified Plan: STOOL STUDIES, CONTINUE TO MONITOR (4) Chest pain Status: Acute
[2017-07-08] MEDS ORDERED: NS 1000 ML 1,000 ML IV PRN (19:52)
[2017-07-08] MEDS: SNACK - Diabetic Appropriate PO SCH (21:38)
[2017-07-09] MEDS ORDERED: ULTRAM PO PRN (00:06)
[2017-07-09 05:24] LABS: ALANINE AMINOTRANSFERASE 16 Units/L (12-78); ALBUMIN 2.8 g/dL (3.4-5.0); ALKALINE PHOSPHATASE 60 Units/L (46-116); ASPARTATE AMINO TRANSFERASE 13 Units/L (15-37); BASOPHILS % (AUTO) 0.4 % (0.2-1.0); BLOOD UREA NITROGEN 9 mg/dL (7-18); CALCIUM 8.2 mg/dL (8.5-10.1); CARBON DIOXIDE 29.7 mmol/L (21-32); CHLORIDE 104 mmol/L (98-107); COR CA(FOR HYPOALB) 9.2 mg/dL (8.5-10.1); COR NA(FOR HYPERGLY) 141 mmol/L (136-145); CREATININE 0.82 mg/dL (0.70-1.30); EOSINOPHILS # (AUTO) 0.1 x10^3/uL (0.0-0.2); EOSINOPHILS % (AUTO) 0.6 % (0.9-2.9); HEMATOCRIT 33.5 % (42.0-54.0); HEMOGLOBIN 11.2 g/dL (13.5-18.0); LYMPHOCYTES % (AUTO) 9.2 % (21.0-51.0); MEAN CORPUSCULAR HEMOGLOBIN 27.6 pg (27.0-34.0); MEAN CORPUSCULAR HGB CONC 33.5 g/dL (33.0-35.0); MEAN CORPUSCULAR VOLUME 82.6 fL (80.0-100.0); MEAN PLATELET VOLUME 8.9 fL (7.4-11.0); MONOCYTES # (AUTO) 1.5 x10^3/uL (0.3-0.8); MONOCYTES % (AUTO) 13.6 % (0.0-13.0); NEUTROPHILS # (AUTO) 8.2 x10^3/uL (2.2-4.8); NEUTROPHILS % (AUTO) 76.2 % (42.0-75.0); PLATELET COUNT 152 X10^3/uL (150.0-450.0); RED BLOOD COUNT 4.06 X10^6/uL (4.7-6.0); RED CELL DISTRIBUTION WIDTH 14.6 % (11.6-16.5); SODIUM 139 mmol/L (136-145); TOTAL PROTEIN 6.3 g/dL (6.4-8.2); WHITE BLOOD COUNT 10.7 X10^3/uL (3.6-10.0); eGFR BLACK RACES > 60 (>60); eGFR NON BLACK RACES > 60 (>60)
[2017-07-09] MEDS: FORTAZ or TAZICEF INJ 1 GM in NS 100 ML IV + SPIKE MINIBAG* 100 ML IV SCH ×3 (06:18→23:43)
--- NOTE | 2017-07-09 07:00 | RAD ---
HISTORY: Shortness of breath Study: Chest AP portable Comparison: 07/08/2017 Findings: The patient is status post median sternotomy and CABG. The heart remains enlarged. There has been int erval development of some interstitial prominence and septal lines. This indicates mild congestive he art failure in the form of early interstitial edema. No alveolar edema, alveolar infiltrates, or pleu ral effusions are identified. The bony thorax is unremarkable. IMPRESSION: Moderate cardiomegaly with interval development of mild congestive heart failure Reported By:
[2017-07-09 07:24] LABS: PSA TOTAL 1.3 ng/mL (0.0-4.0)
[2017-07-09] MEDS: PROVENTIL NEB TX 0.083% 2.5MG/ 3ML NEB SCH ×4 (09:52→20:16)
[2017-07-09] MEDS ORDERED: GLUCOPHAGE ONE ×2 (09:53→20:17)
[2017-07-09] MEDS: FLONASE NASAL SPRAY ENOSTRIL SCH ×2 (10:18→20:47)
[2017-07-09] MEDS: CIPRO IV 400 MG PREMIX* 400 MG/200 ML IV.SOLN. IV SCH ×2 (10:18→20:34)
[2017-07-09] MEDS: PROTONIX INJ 40 MG VIAL IVP SCH ×2 (10:19→20:36)
[2017-07-09] MEDS: PEPCID 20 MG IV PREMIX* 20 MG/50 ML BAG IV SCH ×2 (10:19→20:49)
[2017-07-09] MEDS: NORCO 5/325 MG TAB PO PRN ×3 (10:20→18:26)
[2017-07-09] MEDS: NEURONTIN CAP 300 MG PO SCH ×2 (10:20→20:32)
[2017-07-09] MEDS: NORVASC TAB 5 MG PO SCH (10:20)
[2017-07-09] MEDS: GLUCOPHAGE PO SCH ×2 (10:20→20:32)
[2017-07-09] MEDS: MIRALAX POWDER (1 DOSE 17GM) PO SCH ×2 (11:09→20:50)
[2017-07-09] MEDS: COLACE CAP 100 MG PO SCH ×2 (11:29→20:32)
[2017-07-09] MEDS: MILK OF MAGNESIA PO SCH ×4 (11:29→20:47)
--- NOTE | 2017-07-09 12:17 | PCM.PROG ---
Progress Note - Progress Note for Day of Date: 07/09/17 - Subjective Subjective: IS BEING TREATED FOR ABDOMINAL PAIN AND PNEUMONIA. TODAY, HE IS ALERT AND ORIENTED, LYING IN BED ON MORNING ROUNDS. SPOUSE IS AT BEDSIDE. TODAY, HE REPORTS IMPROVEMENT IN ABDOMINAL PAIN. HE COMPLAINS OF PERSISTENT SHORTNESS OF BREATH AND A NON-PRODUCTIVE COUGH. STAFF REPORTS THAT PATIENTS OXYGEN SATURATION HAVE FELL INTO THE LOW 80S ON ROOM AIR WHILE AT REST. YESTERDAY, HE SPIKED A TEMPERATURE OF 101.7 DURING THE AFTERNOON. ON EXAMINATION , HEART IS REGULAR IN RATE AND RHYTHM. BILATERAL LUNGS ARE NOTED WITH SCATTERED WHEEZING. HE IS CURRENTLY UTILIZING OXYGEN VIA NASAL CANNUAL AT 2L/MIN. ABDOMEN IS ROUND, SOFT, AND NOTED WITH MILD TENDERNESS TO PALPATION. NORMAL BOWEL SOUNDS ARE NOTED IN ALL QUADRANTS. HE DENIES A BOWEL MOVEMENT IN SEVERAL DAYS. THERE IS NORMAL RANGE OF MOTION NOTED TO ALL EXTREMITIES. HIS VITALS THIS MORNING ARE 99.7-86-20-91%-170/76. LABS WERE OBTAINED. ABNORMAL LAB VALUES INCLUDE THE FOLLOWING: WBC DECREASED FROM 10.7, RBC 4.06, HGB 11.2, HCT 33.5, GLUCOSE 177, CALCIUM 8.2, AST 13, TOTAL PROTEIN 6.3, ALBUMIN 2.8. A CHEST XRAY WAS OBTAINED TODAY AND REVEALED MODERATE CARDIOMEGALY WITH INTERVAL DEVELOPMENT OF MILD CONGESTIVE HEART FAILURE. TODAY, WE WILL START A BOWEL REGIMEN AND LASIX 20MG IV BID. OTHERWISE, WE WILL CONTINUE WITH CURRENT ANTIBIOTICS AND PLAN OF CARE. WE PLAN TO FOLLOW UP WITH AM LABS AND CONTINUE TO MONITOR PATIENT. - Past Medical Family Social History Past Med/Fam/Surg Hx: No changes since H&P Allergies: Allergies penicillin G Adverse Reaction (Verified 07/05/17 18:34) - Review of Systems ROS: No change since H&P - Vital Signs and I&O's Vital Signs: Temperature 99.7 F Pulse Rate [Right Brachial] 86 Pulse Rate 75 Respiratory Rate 20 Blood Pressure [Right Arm] 170/76 Blood Pressure [Left Arm] 118/58 Blood Pressure 185/74 O2 Sat by Pulse Oximetry 91 Intake and Output: Intake & Output 07/07/17 07/08/17 07/09/17 07/10/17 11:59 11:59 11:59 11:59 Intake Total 5052 3020 4800 Output Total 965 2025 1750 Balance 4087 995 3050 - Physical Exam Oriented: Normal Eyes: Normal Ear: Normal Nose: Normal Throat: Normal Respiratory: Generalized, Wheezes Cardiovascular: Normal : Normal Auscultation: Bowel Sounds: Normal Palpation: Normal Tenderness: Diffuse, Moderate. negative: Rebound, Guarding, Rigidity Skin: Normal Musculoskeletal: Normal Psychiatric: Normal Mood Description: Calm Affect: Normal Speech Pattern: Clear, Appropriate - Laboratory and Diagnostics Result Diagrams: 07/12/17 04:40 07/12/17 04:40 Labs: 07/08/17 10:15 Sputum - Expectorated Sputum Sputum Culture - Preliminary 07/08/17 10:15 Sputum - Expectorated Sputum - Final 07/07/17 17:53 Blood Blood Culture - Preliminary 07/07/17 17:47 Blood Blood Culture - Preliminary Laboratory WBC 10.7 X10^3/uL (3.6-10.0) H 07/09/17 04:44 RBC 4.06 X10^6/uL (4.7-6.0) L 07/09/17 04:44 Hgb 11.2 g/dL (13.5-18.0) L 07/09/17 04:44 Hct 33.5 % (42.0-54.0) L 07/09/17 04:44 MCV 82.6 fL (80.0-100.0) 07/09/17 04:44 MCH 27.6 pg (27.0-34.0) 07/09/17 04:44 MCHC 33.5 g/dL (33.0-35.0) 07/09/17 04:44 RDW 14.6 % (11.6-16.5) 07/09/17 04:44 Plt Count 152 X10^3/uL (150.0-450.0) 07/09/17 04:44 Plt Count Comment Adequate (ADEQUATE) 07/06/17 04:50 MPV 8.9 fL (7.4-11.0) 07/09/17 04:44 Neut % (Auto) 76.2 % (42.0-75.0) H 07/09/17 04:44 Lymph % (Auto) 9.2 % (21.0-51.0) L 07/09/17 04:44 [place] % (Auto) 13.6 % (0.0-13.0) H 07/09/17 04:44 Eos % (Auto) 0.6 % (0.9-2.9) L 07/09/17 04:44 Baso % (Auto) 0.4 % (0.2-1.0) 07/09/17 04:44 Neut # (Auto) 8.2 x10^3/uL (2.2-4.8) H 07/09/17 04:44 Lymph # (Auto) 1.0 X10^3/uL (1.3-2.9) L 07/09/17 04:44 [place] # (Auto) 1.5 x10^3/uL (0.3-0.8) H 07/09/17 04:44 Eos # (Auto) 0.1 x10^3/uL (0.0-0.2) 07/09/17 04:44 Baso # (Auto) 0.0 X10^3/uL (0.0-0.1) 07/09/17 04:44 Absolute Nucleated RBC 0.0 /100WBC 07/09/17 04:44 Total Counted 100 07/06/17 04:50 Neutrophils % (Manual) 89 % (39-76) H 07/06/17 04:50 Band Neutrophils % 3 % (0-10) 07/06/17 04:50 Lymphocytes % (Manual) 6 % (13-43) L 07/06/17 04:50 Monocytes % (Manual) 3 % (4-9) L 07/06/17 04:50 Plt Morphology Comment Normal (NORMAL) 07/06/17 04:50 RBC Morphology Normal (NORMAL) 07/06/17 04:50 Sodium 139 mmol/L (136-145) 07/09/17 04:44 Corrected Sodium 141 mmol/L (136-145) 07/09/17 04:44 Potassium 4.0 mmol/L (3.5-5.1) 07/09/17 04:44 Chloride 104 mmol/L (98-107) 07/09/17 04:44 Carbon Dioxide 29.7 mmol/L (21-32) 07/09/17 04:44 BUN 9 mg/dL (7-18) 07/09/17 04:44 Creatinine 0.82 mg/dL (0.70-1.30) 07/09/17 04:44 Est GFR (MDRD) Af Amer > 60 (>60) 07/09/17 04:44 Est GFR (MDRD) Non-Af > 60 (>60) 07/09/17 04:44 Glucose 177 mg/dL (65-99) H 07/09/17 04:44 POC Glucose (mg/dL) 169 mg/dL (65-99) H 07/09/17 05:20 Hemoglobin A1c 6.8 % 07/06/17 10:45 Calcium 8.2 mg/dL (8.5-10.1) L 07/09/17 04:44 Corrected Calcium 9.2 mg/dL (8.5-10.1) 07/09/17 04:44 Magnesium 1.9 mg/dL (1.7-2.9) 07/07/17 05:20 Ferritin 41 ng/mL (26-388) 07/06/17 10:45 Total Bilirubin 0.60 mg/dL (0.2-1.0) 07/09/17 04:44 AST 13 Units/L (15-37) L 07/09/17 04:44 ALT 16 Units/L (12-78) 07/09/17 04:44 Alkaline Phosphatase 60 Units/L (46-116) 07/09/17 04:44 Creatine Kinase 87 Units/L (39-308) 07/07/17 20:36 CK-MB (CK-2) < 1.0 ng/mL (0-4.0) 07/07/17 20:36 CK/CKMB % Calc 1.2 % (<4) 07/07/17 20:36 Troponin I 0.05 ng/mL (0-1.5) 07/07/17 20:36 C-React Prot High Sens 37.8 mg/L (<=3.0) H 07/07/17 05:20 Total Protein 6.3 g/dL (6.4-8.2) L 07/09/17 04:44 Albumin 2.8 g/dL (3.4-5.0) L 07/09/17 04:44 Globulin 3.5 g/dL (2.5-4.5) 07/09/17 04:44 Albumin/Globulin Ratio 0.8 Ratio (1.1-2.1) L 07/09/17 04:44 Triglycerides 62 mg/dL (0-150) 07/06/17 10:45 Cholesterol 103 mg/dL (0-200) 07/06/17 10:45 LDL Cholesterol, Calc 47 mg/dL (0-100) 07/06/17 10:45 HDL Cholesterol 44 mg/dL (40-60) 07/06/17 10:45 Cholesterol/HDL Ratio 2.3 (0.0-5.0) 07/06/17 10:45 Amylase 65 Units/L (25-115) 07/05/17 18:40 Lipase 293 Units/L (73-393) 07/05/17 18:40 Free PSA 0.5 ng/mL 07/07/17 05:20 % Free PSA Calc 38 % 07/07/17 05:20 Total PSA 1.3 ng/mL (0.0-4.0) 07/07/17 05:20 Vitamin B12 1889 pg/mL (193-986) H 07/06/17 10:45 Vitamin D 25-Hydroxy 27 ng/mL (30-80) L 07/07/17 05:20 Folate 15.1 ng/mL (>8.6) 07/06/17 10:45 Free T4 0.96 ng/dL (0.76-1.46) 07/06/17 10:45 TSH 3rd Generation 0.165 uIU/mL (0.358-3.74) L 07/06/17 10:45 Total Testosterone 302 ng/dL (300-720) 07/07/17 05:20 Free Testosterone Calc 40 pg/mL (47-244) L 07/07/17 05:20 % Free Testosterone 1.3 % (1.6-2.9) L 07/07/17 05:20 Sex Hormone Bind Glob 55 nmol/L (11-80) 07/07/17 05:20 Cortisol 6.7 ug/dL 07/07/17 05:20 Specimen Type Clean catch urine 07/06/17 01:19 Urine Color Dark yellow (YELLOW) 07/06/17 01:19 Urine Appearance Clear (CLEAR) 07/06/17 01:19 Urine pH 5.0 (5.0 - 8.0) 07/06/17 01:19 Ur Specific [place] 1.020 (1.000-1.030) 07/06/17 01:19 Urine Protein 2+ (NEGATIVE) 07/06/17 01:19 Urine Glucose (UA) Negative (NEGATIVE) 07/06/17 01:19 Urine Ketones 3+ (NEGATIVE) 07/06/17 01:19 Urine Occult Blood Negative (NEGATIVE) 07/06/17 01:19 Urine Nitrite Negative (NEGATIVE) 07/06/17 01:19 Urine Bilirubin Negative (NEGATIVE) 07/06/17 01:19 Urine Urobilinogen Normal (NORMAL) 07/06/17 01:19 Ur Leukocyte Esterase 1+ (NEGATIVE) 07/06/17 01:19 Urine RBC None seen /HPF (NONE SEEN) 07/06/17 01:19 Urine WBC 0-2 /HPF (NONE SEEN) 07/06/17 01:19 Ur Squamous Epith Cells Rare /HPF (NEGATIVE) 07/06/17 01:19 Urine Bacteria Negative /HPF (NEGATIVE) 07/06/17 01:19 Ur Culture Indicated? No/not indicated 07/06/17 01:19 - Plan (1) Pneumonia Status: Acute Qualifiers: Pneumonia type: due to unspecified organism (2) Abdominal pain Status: Acute Qualifiers: Abdominal location: generalized Qualified Code(s): R10.84 - Generalized abdominal pain Plan: CIPRO 400MG IV Q12H, FORTAZ 1GM IV Q8H, PEPCID IV, PROTONIX IV, DEMEROL IV PRN PAIN, CONTINUE TO MONITOR (3) Diarrhea Status: Acute Qualifiers: Diarrhea type: presumed infectious Qualified Code(s): R19.7 - Diarrhea, unspecified Plan: STOOL STUDIES, CONTINUE TO MONITOR
[2017-07-09] MEDS: LASIX IVP SCH ×2 (14:16→20:34)
[2017-07-09] MEDS ORDERED: TYLENOL 325 MG TAB PO PRN (19:58)
[2017-07-09] MEDS: SNACK - Diabetic Appropriate PO SCH (20:49)
[2017-07-10] MEDS: NORCO 5/325 MG TAB PO PRN (03:09)
[2017-07-10] MEDS: FORTAZ or TAZICEF INJ 1 GM in NS 100 ML IV + SPIKE MINIBAG* 100 ML IV SCH ×3 (05:07→21:00)
--- NOTE | 2017-07-10 05:39 | RAD ---
Chest, AP portable Indication: Shortness of breath Comparison: 07/09/2017 Findings: Cardiac silhouette size is unchanged. Interstitial thickening is mildly improved. There is a small left pleural effusion. Impression: Cardiomegaly with improving edema. Small left pleural effusion. Reported By:
[2017-07-10 06:29] LABS: BASOPHILS % (AUTO) 0.3 % (0.2-1.0); EOSINOPHILS # (AUTO) 0.2 x10^3/uL (0.0-0.2); EOSINOPHILS % (AUTO) 1.7 % (0.9-2.9); HEMATOCRIT 32.4 % (42.0-54.0); HEMOGLOBIN 10.9 g/dL (13.5-18.0); LYMPHOCYTES # (AUTO) 1.1 X10^3/uL (1.3-2.9); LYMPHOCYTES % (AUTO) 11.3 % (21.0-51.0); MEAN CORPUSCULAR HEMOGLOBIN 27.7 pg (27.0-34.0); MEAN CORPUSCULAR HGB CONC 33.7 g/dL (33.0-35.0); MEAN CORPUSCULAR VOLUME 82.2 fL (80.0-100.0); MEAN PLATELET VOLUME 8.8 fL (7.4-11.0); MONOCYTES # (AUTO) 1.2 x10^3/uL (0.3-0.8); MONOCYTES % (AUTO) 11.9 % (0.0-13.0); NEUTROPHILS # (AUTO) 7.4 x10^3/uL (2.2-4.8); NEUTROPHILS % (AUTO) 74.8 % (42.0-75.0); PLATELET COUNT 160 X10^3/uL (150.0-450.0); RED BLOOD COUNT 3.94 X10^6/uL (4.7-6.0); RED CELL DISTRIBUTION WIDTH 14.5 % (11.6-16.5); WHITE BLOOD COUNT 9.9 X10^3/uL (3.6-10.0)
[2017-07-10 06:40] LABS: ALANINE AMINOTRANSFERASE 16 Units/L (12-78); ALBUMIN 2.7 g/dL (3.4-5.0); ALKALINE PHOSPHATASE 63 Units/L (46-116); ASPARTATE AMINO TRANSFERASE 14 Units/L (15-37); BLOOD UREA NITROGEN 11 mg/dL (7-18); CALCIUM 8.4 mg/dL (8.5-10.1); CARBON DIOXIDE 29.8 mmol/L (21-32); CHLORIDE 102 mmol/L (98-107); COR CA(FOR HYPOALB) 9.4 mg/dL (8.5-10.1); COR NA(FOR HYPERGLY) 141 mmol/L (136-145); CREATININE 0.86 mg/dL (0.70-1.30); SODIUM 138 mmol/L (136-145); TOTAL PROTEIN 6.5 g/dL (6.4-8.2); eGFR BLACK RACES > 60 (>60); eGFR NON BLACK RACES > 60 (>60)
[2017-07-10] MEDS: PROVENTIL NEB TX 0.083% 2.5MG/ 3ML NEB SCH ×4 (08:43→20:45)
[2017-07-10] MEDS ORDERED: GLUCOPHAGE ONE ×2 (09:09→20:06)
[2017-07-10] MEDS: COLACE CAP 100 MG PO SCH ×2 (09:20→21:02)
[2017-07-10] MEDS: NEURONTIN CAP 300 MG PO SCH ×2 (09:20→21:01)
[2017-07-10] MEDS: PROTONIX INJ 40 MG VIAL IVP SCH ×2 (09:20→21:00)
[2017-07-10] MEDS: GLUCOPHAGE PO SCH ×2 (09:20→21:01)
[2017-07-10] MEDS: NORVASC TAB 5 MG PO SCH (09:20)
[2017-07-10] MEDS: LASIX IVP SCH ×2 (09:20→21:12)
[2017-07-10] MEDS: FLONASE NASAL SPRAY ENOSTRIL SCH ×2 (09:21→21:12)
[2017-07-10] MEDS: MILK OF MAGNESIA PO SCH ×5 (09:21→21:12)
[2017-07-10] MEDS: PEPCID 20 MG IV PREMIX* 20 MG/50 ML BAG IV SCH ×2 (09:21→21:12)
[2017-07-10] MEDS: CIPRO IV 400 MG PREMIX* 400 MG/200 ML IV.SOLN. IV SCH ×2 (09:21→21:22)
[2017-07-10 14:23] LABS: CRYPTOSPORIDIUM PARVUM ANTIGEN NEGATIVE (NEGATIVE); GIARDIA LAMBLIA ANTIGEN NEGATIVE (NEGATIVE)
[2017-07-10 14:24] LABS: STOOL FOR WBC POSITIVE (NEGATIVE)
[2017-07-10] MEDS: MIRALAX POWDER (1 DOSE 17GM) PO SCH (21:11)
[2017-07-10] MEDS: SNACK - Diabetic Appropriate PO SCH (21:12)
[2017-07-11] MEDS: FORTAZ or TAZICEF INJ 1 GM in NS 100 ML IV + SPIKE MINIBAG* 100 ML IV SCH ×3 (05:18→21:02)
[2017-07-11] MEDS: MILK OF MAGNESIA PO SCH ×5 (05:40→20:40)
[2017-07-11 06:26] LABS: ALANINE AMINOTRANSFERASE 17 Units/L (12-78); ALBUMIN 2.6 g/dL (3.4-5.0); ALKALINE PHOSPHATASE 57 Units/L (46-116); ASPARTATE AMINO TRANSFERASE 15 Units/L (15-37); BLOOD UREA NITROGEN 11 mg/dL (7-18); CALCIUM 8.5 mg/dL (8.5-10.1); CARBON DIOXIDE 34.2 mmol/L (21-32); CHLORIDE 102 mmol/L (98-107); COR CA(FOR HYPOALB) 9.6 mg/dL (8.5-10.1); COR NA(FOR HYPERGLY) 142 mmol/L (136-145); CREATININE 0.84 mg/dL (0.70-1.30); SODIUM 140 mmol/L (136-145); TOTAL PROTEIN 6.5 g/dL (6.4-8.2); eGFR BLACK RACES > 60 (>60); eGFR NON BLACK RACES > 60 (>60)
[2017-07-11 06:27] LABS: BASOPHILS % (AUTO) 0.4 % (0.2-1.0); EOSINOPHILS # (AUTO) 0.4 x10^3/uL (0.0-0.2); EOSINOPHILS % (AUTO) 4.8 % (0.9-2.9); HEMATOCRIT 32.4 % (42.0-54.0); HEMOGLOBIN 10.9 g/dL (13.5-18.0); LYMPHOCYTES # (AUTO) 1.2 X10^3/uL (1.3-2.9); LYMPHOCYTES % (AUTO) 16.1 % (21.0-51.0); MEAN CORPUSCULAR HEMOGLOBIN 27.7 pg (27.0-34.0); MEAN CORPUSCULAR HGB CONC 33.7 g/dL (33.0-35.0); MEAN PLATELET VOLUME 8.9 fL (7.4-11.0); MONOCYTES # (AUTO) 0.9 x10^3/uL (0.3-0.8); MONOCYTES % (AUTO) 11.9 % (0.0-13.0); NEUTROPHILS # (AUTO) 5.1 x10^3/uL (2.2-4.8); NEUTROPHILS % (AUTO) 66.8 % (42.0-75.0); PLATELET COUNT 175 X10^3/uL (150.0-450.0); RED BLOOD COUNT 3.96 X10^6/uL (4.7-6.0); RED CELL DISTRIBUTION WIDTH 14.5 % (11.6-16.5); WHITE BLOOD COUNT 7.6 X10^3/uL (3.6-10.0)
[2017-07-11] MEDS ORDERED: GLUCOPHAGE ONE ×2 (07:46→19:45)
--- NOTE | 2017-07-11 07:59 | RAD ---
Examination: AP chest History: Fever, SOB Comparison 07/10/2017 Findings: Stable cardiomegaly. Sternal wires again noted. Increasing vascular congestion and intersti tial process compared to prior study. Persistent retrocardiac opacity, infiltrate and pleural fluid. Impression: Persistent cardiomegaly with recurrent CHF and perivascular edema. Stable infiltrate at l eft base with pleural fluid. Reported By:
[2017-07-11] MEDS: CIPRO IV 400 MG PREMIX* 400 MG/200 ML IV.SOLN. IV SCH (08:09)
[2017-07-11] MEDS: PEPCID 20 MG IV PREMIX* 20 MG/50 ML BAG IV SCH ×2 (08:09→20:46)
[2017-07-11] MEDS: NORVASC TAB 5 MG PO SCH (08:12)
[2017-07-11] MEDS: GLUCOPHAGE PO SCH ×2 (08:13→20:39)
[2017-07-11] MEDS: NEURONTIN CAP 300 MG PO SCH ×2 (08:13→20:39)
[2017-07-11] MEDS: COLACE CAP 100 MG PO SCH ×2 (08:13→20:39)
[2017-07-11] MEDS: FLONASE NASAL SPRAY ENOSTRIL SCH ×2 (08:14→20:45)
[2017-07-11] MEDS: PROTONIX INJ 40 MG VIAL IVP SCH ×2 (08:14→20:40)
[2017-07-11] MEDS: LASIX IVP SCH ×2 (08:14→20:40)
[2017-07-11] MEDS: PROVENTIL NEB TX 0.083% 2.5MG/ 3ML NEB SCH ×4 (09:22→21:28)
[2017-07-11] MEDS ORDERED: PHARMACY CONSULT - VANCOMYCIN XX SCH (10:00)
[2017-07-11] MEDS: VANCOMYCIN HCL 1 GM VIAL 1 GM in D5W 250 ML IV 250 ML IV SCH ×2 (13:55→20:40)
[2017-07-11] MEDS: MIRALAX POWDER (1 DOSE 17GM) PO SCH (20:45)
[2017-07-11] MEDS: SNACK - Diabetic Appropriate PO SCH (20:45)
[2017-07-11] MEDS: NORCO 5/325 MG TAB PO PRN (22:21)
[2017-07-12] MEDS: FORTAZ or TAZICEF INJ 1 GM in NS 100 ML IV + SPIKE MINIBAG* 100 ML IV SCH ×3 (05:16→21:00)
[2017-07-12 06:15] LABS: BASOPHILS % (AUTO) 0.4 % (0.2-1.0); EOSINOPHILS # (AUTO) 0.4 x10^3/uL (0.0-0.2); EOSINOPHILS % (AUTO) 5.2 % (0.9-2.9); HEMATOCRIT 33.7 % (42.0-54.0); HEMOGLOBIN 11.3 g/dL (13.5-18.0); LYMPHOCYTES # (AUTO) 1.5 X10^3/uL (1.3-2.9); MEAN CORPUSCULAR HEMOGLOBIN 27.5 pg (27.0-34.0); MEAN CORPUSCULAR HGB CONC 33.5 g/dL (33.0-35.0); MEAN CORPUSCULAR VOLUME 82.2 fL (80.0-100.0); MEAN PLATELET VOLUME 8.7 fL (7.4-11.0); MONOCYTES # (AUTO) 0.9 x10^3/uL (0.3-0.8); MONOCYTES % (AUTO) 11.1 % (0.0-13.0); NEUTROPHILS # (AUTO) 5.5 x10^3/uL (2.2-4.8); NEUTROPHILS % (AUTO) 65.3 % (42.0-75.0); PLATELET COUNT 230 X10^3/uL (150.0-450.0); RED CELL DISTRIBUTION WIDTH 14.3 % (11.6-16.5); WHITE BLOOD COUNT 8.5 X10^3/uL (3.6-10.0)
[2017-07-12 06:23] LABS: DHEA 0.311 ng/mL (0.630-4.700)
--- NOTE | 2017-07-12 06:37 | RAD ---
HISTORY: Fever, shortness of breath Study: Chest AP portable Comparison: 07/11/2017, 07/10/2017 Findings: The patient is status post median sternotomy and CABG. The heart is enlarged. No congestive heart deborah lure is noted. No acute alveolar infiltrates are identified. There is a left pleural effusion present unchanged from the prior examination. There is minimal subsegmental atelectasis in the right lung ba se. The bony thorax is unremarkable. IMPRESSION: Mild cardiomegaly without congestive heart failure Small left pleural effusion unchanged Reported By:
[2017-07-12 06:47] LABS: ALANINE AMINOTRANSFERASE 21 Units/L (12-78); ALBUMIN 2.8 g/dL (3.4-5.0); ALKALINE PHOSPHATASE 70 Units/L (46-116); ASPARTATE AMINO TRANSFERASE 18 Units/L (15-37); BLOOD UREA NITROGEN 12 mg/dL (7-18); CALCIUM 8.7 mg/dL (8.5-10.1); CARBON DIOXIDE 32.8 mmol/L (21-32); CHLORIDE 103 mmol/L (98-107); COR CA(FOR HYPOALB) 9.7 mg/dL (8.5-10.1); COR NA(FOR HYPERGLY) 143 mmol/L (136-145); CREATININE 0.82 mg/dL (0.70-1.30); SODIUM 142 mmol/L (136-145); TOTAL PROTEIN 6.9 g/dL (6.4-8.2); eGFR BLACK RACES > 60 (>60); eGFR NON BLACK RACES > 60 (>60)
[2017-07-12] MEDS ORDERED: GLUCOPHAGE ONE ×2 (07:58→20:06)
[2017-07-12] MEDS: PROVENTIL NEB TX 0.083% 2.5MG/ 3ML NEB SCH ×4 (08:53→21:21)
[2017-07-12] MEDS: PEPCID 20 MG IV PREMIX* 20 MG/50 ML BAG IV SCH ×2 (09:12→20:48)
[2017-07-12] MEDS: VANCOMYCIN HCL 1 GM VIAL 1 GM in D5W 250 ML IV 250 ML IV SCH ×2 (09:13→21:41)
[2017-07-12] MEDS: PROTONIX INJ 40 MG VIAL IVP SCH ×2 (09:13→20:52)
[2017-07-12] MEDS: MILK OF MAGNESIA PO SCH ×4 (09:13→20:53)
[2017-07-12] MEDS: LASIX IVP SCH ×2 (09:13→20:52)
[2017-07-12] MEDS: COLACE CAP 100 MG PO SCH ×2 (09:14→20:48)
[2017-07-12] MEDS: GLUCOPHAGE PO SCH ×2 (09:14→20:47)
[2017-07-12] MEDS: NORVASC TAB 5 MG PO SCH (09:14)
[2017-07-12] MEDS: NEURONTIN CAP 300 MG PO SCH ×2 (09:14→20:47)
[2017-07-12] MEDS: FLONASE NASAL SPRAY ENOSTRIL SCH ×2 (09:16→20:52)
[2017-07-12] MEDS ORDERED: LASIX IVP ONE (09:40)
[2017-07-12] MEDS: MIRALAX POWDER (1 DOSE 17GM) PO SCH (20:53)
[2017-07-12] MEDS: SNACK - Diabetic Appropriate PO SCH (21:01)
--- NOTE | 2017-07-12 21:19 | PCM.PROG ---
Progress Note - Progress Note for Day of Date: 07/12/17 - Subjective Subjective: IS BEING TREATED FOR PNEUMONIA. TODAY, HE IS ALERT AND ORIENTED, LYING IN BED ON MORNING ROUNDS. SPOUSE IS AT BEDSIDE. TODAY, HE COMPLAINS OF PERSISTENT SHORTNESS OF BREATH AND A PRODUCTIVE COUGH. HE REPORTS THAT SHORTNESS OF BREATH HAS INCREASED SINCE WE LAST SAW HIM. ON EXAMINATION, HEART IS REGULAR IN RATE AND RHYTHM. BILATERAL LUNGS ARE NOTED WITH SCATTERED WHEEZING AND RHONCHI. HE IS CURRENTLY UTILIZING OXYGEN VIA NASAL CANNUAL AT 2L/ MIN. ABDOMEN IS ROUND, SOFT, AND NON TENDER WITH NORMAL BOWEL SOUNDS NOTED IN ALL QUADRANTS. THERE IS NORMAL RANGE OF MOTION NOTED TO ALL EXTREMITIES. 1+ PITTING EDEMA NOTED TO BILATERAL LOWER EXTREMITIES. HIS VITALS THIS MORNING ARE 97.8-73-18-93%-197/86. LABS WERE OBTAINED. ABNORMAL LAB VALUES INCLUDE THE FOLLOWING: RBC 4.10, HGB 11.3, HCT 33.7, CARBON DIOXIDE 32.8, GLUCOSE 151, ALBUMIN 2.8. 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 HE WAS STARTED ON VANCOMYCIN YESTERDAY. BLOOD CULTURES ARE PENDING. A CHEST XRAY WAS OBTAINED TODAY AND REVEALED MILD CARDIOMEGALY WITHOUT CONGESTIVE HEART FAILURE. SMALL LEFT PLEURAL EFFUSION UNCHANGED. TODAY, WE WILL ADMINISTER AN ADDITIONAL DOSE OF LASIX 20MG IV THIS MORNING. WE WILL HAVE RESPIRATORY THERAPY PERFORM A 6 MINUTE WALK TO ASSESS OXYGEN SATURATIONS. OTHERWISE, WE WILL CONTINUE WITH CURRENT ANTIBIOTICS AND PLAN OF CARE. WE PLAN TO FOLLOW UP WITH AM LABS AND CONTINUE TO MONITOR PATIENT. - Past Medical Family Social History Past Med/Fam/Surg Hx: No changes since H&P Allergies: Allergies penicillin G Adverse Reaction (Verified 07/05/17 18:34) - Review of Systems ROS: No change since H&P - Vital Signs and I&O's Vital Signs: Temperature 98.8 F Pulse Rate [Left Brachial] 83 Pulse Rate [Right Brachial] 73 Pulse Rate 80 Respiratory Rate 20 Blood Pressure [Right Arm] 136/65 Blood Pressure [Left Arm] 171/74 Blood Pressure 185/74 O2 Sat by Pulse Oximetry 92 Intake and Output: Intake & Output 07/10/17 07/11/17 07/12/17 07/13/17 11:59 11:59 11:59 11:59 Intake Total 4930 3190 3676 840 Output Total 525 2025 3100 400 Balance 4405 1165 576 440 - Physical Exam Oriented: Normal Eyes: Normal Ear: Normal Nose: Normal Throat: Normal Respiratory: Generalized, Wheezes, Rhonchi Cardiovascular: Normal : Normal Auscultation: Bowel Sounds: Normal Palpation: Normal Tenderness: Diffuse, Moderate. negative: Rebound, Guarding, Rigidity Skin: Normal Musculoskeletal: Normal Psychiatric: Normal Mood Description: Calm Affect: Normal Speech Pattern: Clear, Appropriate - Laboratory and Diagnostics Result Diagrams: 07/12/17 04:40 07/12/17 04:40 Labs: 07/07/17 17:53 Blood Blood Culture - Final 07/07/17 17:47 Blood Blood Culture - Final 07/10/17 11:20 Stool Stool Culture - Final 07/10/17 11:20 Stool - Final 07/09/17 20:20 Blood Blood Culture - Preliminary 07/09/17 20:15 Blood Blood Culture - Preliminary 07/08/17 10:15 Sputum - Expectorated Sputum Sputum Culture - Final Methicillin Resis Staph Aureus 07/08/17 10:15 Sputum - Expectorated Sputum - Final Laboratory WBC 8.5 X10^3/uL (3.6-10.0) 07/12/17 04:40 RBC 4.10 X10^6/uL (4.7-6.0) L 07/12/17 04:40 Hgb 11.3 g/dL (13.5-18.0) L 07/12/17 04:40 Hct 33.7 % (42.0-54.0) L 07/12/17 04:40 MCV 82.2 fL (80.0-100.0) 07/12/17 04:40 MCH 27.5 pg (27.0-34.0) 07/12/17 04:40 MCHC 33.5 g/dL (33.0-35.0) 07/12/17 04:40 RDW 14.3 % (11.6-16.5) 07/12/17 04:40 Plt Count 230 X10^3/uL (150.0-450.0) 07/12/17 04:40 Plt Count Comment Adequate (ADEQUATE) 07/06/17 04:50 MPV 8.7 fL (7.4-11.0) 07/12/17 04:40 Neut % (Auto) 65.3 % (42.0-75.0) 07/12/17 04:40 Lymph % (Auto) 18.0 % (21.0-51.0) L 07/12/17 04:40 [place] % (Auto) 11.1 % (0.0-13.0) 07/12/17 04:40 Eos % (Auto) 5.2 % (0.9-2.9) H 07/12/17 04:40 Baso % (Auto) 0.4 % (0.2-1.0) 07/12/17 04:40 Neut # (Auto) 5.5 x10^3/uL (2.2-4.8) H 07/12/17 04:40 Lymph # (Auto) 1.5 X10^3/uL (1.3-2.9) 07/12/17 04:40 [place] # (Auto) 0.9 x10^3/uL (0.3-0.8) H 07/12/17 04:40 Eos # (Auto) 0.4 x10^3/uL (0.0-0.2) H 07/12/17 04:40 Baso # (Auto) 0.0 X10^3/uL (0.0-0.1) 07/12/17 04:40 Absolute Nucleated RBC 0.1 /100WBC 07/12/17 04:40 Total Counted 100 07/06/17 04:50 Neutrophils % (Manual) 89 % (39-76) H 07/06/17 04:50 Band Neutrophils % 3 % (0-10) 07/06/17 04:50 Lymphocytes % (Manual) 6 % (13-43) L 07/06/17 04:50 Monocytes % (Manual) 3 % (4-9) L 07/06/17 04:50 Plt Morphology Comment Normal (NORMAL) 07/06/17 04:50 RBC Morphology Normal (NORMAL) 07/06/17 04:50 Sodium 142 mmol/L (136-145) 07/12/17 04:40 Corrected Sodium 143 mmol/L (136-145) 07/12/17 04:40 Potassium 3.5 mmol/L (3.5-5.1) 07/12/17 04:40 Chloride 103 mmol/L (98-107) 07/12/17 04:40 Carbon Dioxide 32.8 mmol/L (21-32) H 07/12/17 04:40 BUN 12 mg/dL (7-18) 07/12/17 04:40 Creatinine 0.82 mg/dL (0.70-1.30) 07/12/17 04:40 Est GFR (MDRD) Af Amer > 60 (>60) 07/12/17 04:40 Est GFR (MDRD) Non-Af > 60 (>60) 07/12/17 04:40 Glucose 151 mg/dL (65-99) H 07/12/17 04:40 POC Glucose (mg/dL) 174 mg/dL (65-99) H 07/12/17 20:13 Hemoglobin A1c 6.8 % 07/06/17 10:45 Lactic Acid 2.0 mmol/L (0.4-2.0) 07/09/17 20:15 Calcium 8.7 mg/dL (8.5-10.1) 07/12/17 04:40 Corrected Calcium 9.7 mg/dL (8.5-10.1) 07/12/17 04:40 Magnesium 1.9 mg/dL (1.7-2.9) 07/07/17 05:20 Ferritin 41 ng/mL (26-388) 07/06/17 10:45 Total Bilirubin 0.40 mg/dL (0.2-1.0) 07/12/17 04:40 AST 18 Units/L (15-37) 07/12/17 04:40 ALT 21 Units/L (12-78) 07/12/17 04:40 Alkaline Phosphatase 70 Units/L (46-116) 07/12/17 04:40 Creatine Kinase 87 Units/L (39-308) 07/07/17 20:36 CK-MB (CK-2) < 1.0 ng/mL (0-4.0) 07/07/17 20:36 CK/CKMB % Calc 1.2 % (<4) 07/07/17 20:36 Troponin I 0.05 ng/mL (0-1.5) 07/07/17 20:36 C-React Prot High Sens 37.8 mg/L (<=3.0) H 07/07/17 05:20 Total Protein 6.9 g/dL (6.4-8.2) 07/12/17 04:40 Albumin 2.8 g/dL (3.4-5.0) L 07/12/17 04:40 Globulin 4.1 g/dL (2.5-4.5) 07/12/17 04:40 Albumin/Globulin Ratio 0.7 Ratio (1.1-2.1) L 07/12/17 04:40 Triglycerides 62 mg/dL (0-150) 07/06/17 10:45 Cholesterol 103 mg/dL (0-200) 07/06/17 10:45 LDL Cholesterol, Calc 47 mg/dL (0-100) 07/06/17 10:45 HDL Cholesterol 44 mg/dL (40-60) 07/06/17 10:45 Cholesterol/HDL Ratio 2.3 (0.0-5.0) 07/06/17 10:45 Amylase 65 Units/L (25-115) 07/05/17 18:40 Lipase 293 Units/L (73-393) 07/05/17 18:40 Free PSA 0.5 ng/mL 07/07/17 05:20 % Free PSA Calc 38 % 07/07/17 05:20 Total PSA 1.3 ng/mL (0.0-4.0) 07/07/17 05:20 Vitamin B6 22.0 nmol/L (20.0-125.0) 07/07/17 05:20 Vitamin B12 1889 pg/mL (193-986) H 07/06/17 10:45 Vitamin D 25-Hydroxy 27 ng/mL (30-80) L 07/07/17 05:20 Folate 15.1 ng/mL (>8.6) 07/06/17 10:45 Free T4 0.96 ng/dL (0.76-1.46) 07/06/17 10:45 TSH 3rd Generation 0.165 uIU/mL (0.358-3.74) L 07/06/17 10:45 Total Estradiol 21.9 pg/mL (10.0-42.0) 07/07/17 05:20 Total Testosterone 302 ng/dL (300-720) 07/07/17 05:20 Free Testosterone Calc 40 pg/mL (47-244) L 07/07/17 05:20 % Free Testosterone 1.3 % (1.6-2.9) L 07/07/17 05:20 Sex Hormone Bind Glob 55 nmol/L (11-80) 07/07/17 05:20 DHEA 0.311 ng/mL (0.630-4.700) L 07/07/17 05:20 Cortisol 6.7 ug/dL 07/07/17 05:20 Specimen Type Clean catch urine 07/06/17 01:19 Urine Color Dark yellow (YELLOW) 07/06/17 01:19 Urine Appearance Clear (CLEAR) 07/06/17 01:19 Urine pH 5.0 (5.0 - 8.0) 07/06/17 01:19 Ur Specific [place] 1.020 (1.000-1.030) 07/06/17 01:19 Urine Protein 2+ (NEGATIVE) 07/06/17 01:19 Urine Glucose (UA) Negative (NEGATIVE) 07/06/17 01:19 Urine Ketones 3+ (NEGATIVE) 07/06/17 01:19 Urine Occult Blood Negative (NEGATIVE) 07/06/17 01:19 Urine Nitrite Negative (NEGATIVE) 07/06/17 01:19 Urine Bilirubin Negative (NEGATIVE) 07/06/17 01:19 Urine Urobilinogen Normal (NORMAL) 07/06/17 01:19 Ur Leukocyte Esterase 1+ (NEGATIVE) 07/06/17 01:19 Urine RBC None seen /HPF (NONE SEEN) 07/06/17 01:19 Urine WBC 0-2 /HPF (NONE SEEN) 07/06/17 01:19 Ur Squamous Epith Cells Rare /HPF (NEGATIVE) 07/06/17 01:19 Urine Bacteria Negative /HPF (NEGATIVE) 07/06/17 01:19 Ur Culture Indicated? No/not indicated 07/06/17 01:19 Stool Description 20g,soft,unformed, 07/10/17 11:20 Stl Occult Blood (IFOB) Negative (NEGATIVE) 07/10/17 11:20 Stool for White Cells Positive (NEGATIVE) A 07/10/17 11:20 Stl C. diff Tox B Gene Negative (NEGATIVE) 07/10/17 11:20 Stl C. diff [id number] Negative (NEGATIVE) 07/10/17 11:20 Cryptosporid parvum Ag Negative (NEGATIVE) 07/10/17 11:20 E. histolytica Antigen Negative (NEGATIVE) 07/10/17 11:20 Giardia lamblia Ag Negative (NEGATIVE) 07/10/17 11:20 - Plan (1) Pneumonia Status: Acute Qualifiers: Aspiration pneumonia type: unspecified Laterality: right Lung location: lower lobe of lung Plan: FORTAZ 1GM IV TID, VANCOMYCIN 1GM IV Q12H, RESPIRATORY TREATMENTS, SUPPLEMENTAL OXYGEN, CONTINUE TO MONITOR (2) Abdominal pain Status: Acute Qualifiers: Abdominal location: generalized Qualified Code(s): R10.84 - Generalized abdominal pain Plan: FORTAZ 1GM IV Q8H, PEPCID IV, PROTONIX IV, DEMEROL IV PRN PAIN, CONTINUE TO MONITOR (3) Diarrhea Status: Resolved Qualifiers: Diarrhea type: presumed infectious Qualified Code(s): R19.7 - Diarrhea, unspecified Plan: STOOL STUDIES, CONTINUE TO MONITOR
[2017-07-12 21:42] LABS: CREATININE 0.95 mg/dL (0.70-1.30); VANCOMYCIN,TROUGH 8.1 ug/mL (15-20)
--- NOTE | 2017-07-13 03:15 | RAD ---
Chest, AP portable Indication: Shortness of breath, fever Comparison: 07/12/2017 at 6:23 a.m. Findings: Cardiac silhouette size is stable. There is stable small left pleural effusion with associa beau basilar airspace disease. There is minimal right basilar atelectasis, improved from prior. No sig nificant right-sided pleural effusion. Impression: Unchanged left basilar pleural parenchymal disease. Cardiomegaly without overt edema. Reported By:
[2017-07-13] MEDS: FORTAZ or TAZICEF INJ 1 GM in NS 100 ML IV + SPIKE MINIBAG* 100 ML IV SCH (05:26)
[2017-07-13 06:16] LABS: BASOPHILS # (AUTO) 0.1 X10^3/uL (0.0-0.1); BASOPHILS % (AUTO) 1.3 % (0.2-1.0); EOSINOPHILS # (AUTO) 0.7 x10^3/uL (0.0-0.2); EOSINOPHILS % (AUTO) 7.4 % (0.9-2.9); HEMATOCRIT 32.9 % (42.0-54.0); HEMOGLOBIN 11.1 g/dL (13.5-18.0); LYMPHOCYTES # (AUTO) 1.5 X10^3/uL (1.3-2.9); LYMPHOCYTES % (AUTO) 16.9 % (21.0-51.0); MEAN CORPUSCULAR HEMOGLOBIN 27.8 pg (27.0-34.0); MEAN CORPUSCULAR HGB CONC 33.8 g/dL (33.0-35.0); MEAN CORPUSCULAR VOLUME 82.3 fL (80.0-100.0); MEAN PLATELET VOLUME 8.3 fL (7.4-11.0); MONOCYTES # (AUTO) 0.8 x10^3/uL (0.3-0.8); MONOCYTES % (AUTO) 9.1 % (0.0-13.0); NEUTROPHILS # (AUTO) 5.8 x10^3/uL (2.2-4.8); NEUTROPHILS % (AUTO) 65.3 % (42.0-75.0); PLATELET COUNT 267 X10^3/uL (150.0-450.0); RED CELL DISTRIBUTION WIDTH 14.4 % (11.6-16.5); WHITE BLOOD COUNT 8.9 X10^3/uL (3.6-10.0)
[2017-07-13 06:17] LABS: ALANINE AMINOTRANSFERASE 26 Units/L (12-78); ALBUMIN 2.9 g/dL (3.4-5.0); ALKALINE PHOSPHATASE 67 Units/L (46-116); ASPARTATE AMINO TRANSFERASE 22 Units/L (15-37); BLOOD UREA NITROGEN 14 mg/dL (7-18); CARBON DIOXIDE 33.2 mmol/L (21-32); CHLORIDE 100 mmol/L (98-107); COR CA(FOR HYPOALB) 9.9 mg/dL (8.5-10.1); COR NA(FOR HYPERGLY) 142 mmol/L (136-145); SODIUM 141 mmol/L (136-145); eGFR BLACK RACES > 60 (>60); eGFR NON BLACK RACES > 60 (>60)
[2017-07-13] MEDS ORDERED: GLUCOPHAGE ONE (07:26)
[2017-07-13] MEDS: GLUCOPHAGE PO SCH (08:22)
[2017-07-13] MEDS: COLACE CAP 100 MG PO SCH (08:22)
[2017-07-13] MEDS: LASIX IVP SCH (08:22)
[2017-07-13] MEDS: FLONASE NASAL SPRAY ENOSTRIL SCH (08:22)
[2017-07-13] MEDS: MILK OF MAGNESIA PO SCH ×2 (08:23→12:34)
[2017-07-13] MEDS: NEURONTIN CAP 300 MG PO SCH (08:23)
[2017-07-13] MEDS: NORVASC TAB 5 MG PO SCH (08:23)
[2017-07-13] MEDS: PROTONIX INJ 40 MG VIAL IVP SCH (08:24)
[2017-07-13] MEDS ORDERED: VANCOMYCIN HCL 500 MG VIAL 250 MG, VANCOMYCIN HCL 1 GM VIAL 1 GM in D5W 250 ML IV 250 ML IV SCH (09:00)
[2017-07-13] MEDS: PROVENTIL NEB TX 0.083% 2.5MG/ 3ML NEB SCH (09:34)
[2017-07-13 12:23] VITALS: BP 176/72
--- NOTE | 2017-07-14 13:27 | PCM.PROG ---
Progress Note - Progress Note for Day of Date: 07/08/17 - Subjective Subjective: WAS ADMITTED FOR LEFT UPPER QUADRANT PAIN. TODAY, HE IS ALERT AND ORIENTED, LYING IN BED ON MORNING ROUNDS. SPOUSE IS AT BEDSIDE. TODAY , HE REPORTS THAT ABDOMINAL PAIN HAS IMPROVED. HE CONTINUES TO COMPLAIN OF SHORTNESS OF BREATH AND A NON-PRODUCTIVE COUGH UPON ROUNDS. STAFF REPORTS THAT PATIENTS OXYGEN SATURATIONS HAVE FELL INTO THE 80S WHILE AT REST. ON EXAMINATION, HEART IS REGULAR IN RATE AND RHYTHM. BILATERAL LUNGS ARE NOTED WITH SCATTERED WHEEZING THROUGHOUT. HE IS CURRENTLY UTILIZING OXYGEN VIA NASAL CANNUAL AT 2L/MIN. ABDOMEN IS ROUND, SOFT, AND NOTED WITH MILD TENDERNESS TO PALPATION. NORMAL BOWEL SOUNDS ARE NOTED IN ALL QUADRANTS. THERE IS NORMAL RANGE OF MOTION NOTED TO ALL EXTREMITIES. HIS VITALS THIS MORNING ARE 99.9-76-20 -93%-153/67. LABS WERE OBTAINED. ABNORMAL LAB VALUES INCLUDE THE FOLLOWING: WBC 10.1, RBC 4.01, HGB 11.2, HCT 33.7, CALCIUM 7.9, TOTAL PROTEIN 5.8, ALBUMIN 2.7. A CHEST XRAY WAS OBTAINED TODAY AND REVEALED MODERATE CARDIOMEGALY WITHOUT CONGESTIVE HEART FAILURE. MINIMAL LEFT PLEURAL EFFUSION. TODAY, WE WILL START FORTAZ 1GM IV TID. OTHERWISE, WE WILL CONTINUE WITH CURRENT ANTIBIOTICS AND PLAN OF CARE. WE PLAN TO FOLLOW UP WITH AM LABS AND CONTINUE TO MONITOR PATIENT. - Past Medical Family Social History Past Med/Fam/Surg Hx: No changes since H&P Allergies: Allergies penicillin G Adverse Reaction (Verified 07/05/17 18:34) - Review of Systems ROS: No change since H&P - Vital Signs and I&O's Vital Signs: Temperature 97.6 F Pulse Rate [Left Brachial] 55 Pulse Rate [Right Brachial] 73 Pulse Rate 74 Respiratory Rate 18 Blood Pressure [Right Arm] 176/72 Blood Pressure [Left Arm] 140/65 Blood Pressure 185/74 O2 Sat by Pulse Oximetry 94 Intake and Output: Intake & Output 07/12/17 07/13/17 07/14/17 07/15/17 11:59 11:59 11:59 11:59 Intake Total 3676 1770 Output Total 3100 1870 Balance 576 -100 - Physical Exam Oriented: Normal Eyes: Normal Ear: Normal Nose: Normal Throat: Normal Respiratory: Generalized, Wheezes Cardiovascular: Normal : Normal Auscultation: Bowel Sounds: Normal Palpation: Normal Tenderness: Diffuse, Moderate. negative: Rebound, Guarding, Rigidity Skin: Normal Musculoskeletal: Normal Psychiatric: Normal Mood Description: Calm Affect: Normal Speech Pattern: Clear, Appropriate - Laboratory and Diagnostics Result Diagrams: 07/13/17 05:20 07/13/17 05:20 Labs: 07/07/17 17:53 Blood Blood Culture - Final 07/07/17 17:47 Blood Blood Culture - Final 07/10/17 11:20 Stool Stool Culture - Final 07/10/17 11:20 Stool - Final 07/09/17 20:20 Blood Blood Culture - Preliminary 07/09/17 20:15 Blood Blood Culture - Preliminary 07/08/17 10:15 Sputum - Expectorated Sputum Sputum Culture - Final Methicillin Resis Staph Aureus 07/08/17 10:15 Sputum - Expectorated Sputum - Final Laboratory WBC 8.9 X10^3/uL (3.6-10.0) 07/13/17 05:20 RBC 4.00 X10^6/uL (4.7-6.0) L 07/13/17 05:20 Hgb 11.1 g/dL (13.5-18.0) L 07/13/17 05:20 Hct 32.9 % (42.0-54.0) L 07/13/17 05:20 MCV 82.3 fL (80.0-100.0) 07/13/17 05:20 MCH 27.8 pg (27.0-34.0) 07/13/17 05:20 MCHC 33.8 g/dL (33.0-35.0) 07/13/17 05:20 RDW 14.4 % (11.6-16.5) 07/13/17 05:20 Plt Count 267 X10^3/uL (150.0-450.0) 07/13/17 05:20 Plt Count Comment Adequate (ADEQUATE) 07/06/17 04:50 MPV 8.3 fL (7.4-11.0) 07/13/17 05:20 Neut % (Auto) 65.3 % (42.0-75.0) 07/13/17 05:20 Lymph % (Auto) 16.9 % (21.0-51.0) L 07/13/17 05:20 [place] % (Auto) 9.1 % (0.0-13.0) 07/13/17 05:20 Eos % (Auto) 7.4 % (0.9-2.9) H 07/13/17 05:20 Baso % (Auto) 1.3 % (0.2-1.0) H 07/13/17 05:20 Neut # (Auto) 5.8 x10^3/uL (2.2-4.8) H 07/13/17 05:20 Lymph # (Auto) 1.5 X10^3/uL (1.3-2.9) 07/13/17 05:20 [place] # (Auto) 0.8 x10^3/uL (0.3-0.8) 07/13/17 05:20 Eos # (Auto) 0.7 x10^3/uL (0.0-0.2) H 07/13/17 05:20 Baso # (Auto) 0.1 X10^3/uL (0.0-0.1) 07/13/17 05:20 Absolute Nucleated RBC 0.0 /100WBC 07/13/17 05:20 Total Counted 100 07/06/17 04:50 Neutrophils % (Manual) 89 % (39-76) H 07/06/17 04:50 Band Neutrophils % 3 % (0-10) 07/06/17 04:50 Lymphocytes % (Manual) 6 % (13-43) L 07/06/17 04:50 Monocytes % (Manual) 3 % (4-9) L 07/06/17 04:50 Plt Morphology Comment Normal (NORMAL) 07/06/17 04:50 RBC Morphology Normal (NORMAL) 07/06/17 04:50 Sodium 141 mmol/L (136-145) 07/13/17 05:20 Corrected Sodium 142 mmol/L (136-145) 07/13/17 05:20 Potassium 3.6 mmol/L (3.5-5.1) 07/13/17 05:20 Chloride 100 mmol/L (98-107) 07/13/17 05:20 Carbon Dioxide 33.2 mmol/L (21-32) H 07/13/17 05:20 BUN 14 mg/dL (7-18) 07/13/17 05:20 Creatinine 0.80 mg/dL (0.70-1.30) 07/13/17 05:20 Est GFR (MDRD) Af Amer > 60 (>60) 07/13/17 05:20 Est GFR (MDRD) Non-Af > 60 (>60) 07/13/17 05:20 Glucose 130 mg/dL (65-99) H 07/13/17 05:20 POC Glucose (mg/dL) 157 mg/dL (65-99) H 07/13/17 08:17 Hemoglobin A1c 6.8 % 07/06/17 10:45 Lactic Acid 2.0 mmol/L (0.4-2.0) 07/09/17 20:15 Calcium 9.0 mg/dL (8.5-10.1) 07/13/17 05:20 Corrected Calcium 9.9 mg/dL (8.5-10.1) 07/13/17 05:20 Magnesium 1.9 mg/dL (1.7-2.9) 07/07/17 05:20 Ferritin 41 ng/mL (26-388) 07/06/17 10:45 Total Bilirubin 0.40 mg/dL (0.2-1.0) 07/13/17 05:20 AST 22 Units/L (15-37) 07/13/17 05:20 ALT 26 Units/L (12-78) 07/13/17 05:20 Alkaline Phosphatase 67 Units/L (46-116) 07/13/17 05:20 Creatine Kinase 87 Units/L (39-308) 07/07/17 20:36 CK-MB (CK-2) < 1.0 ng/mL (0-4.0) 07/07/17 20:36 CK/CKMB % Calc 1.2 % (<4) 07/07/17 20:36 Troponin I 0.05 ng/mL (0-1.5) 07/07/17 20:36 C-React Prot High Sens 37.8 mg/L (<=3.0) H 07/07/17 05:20 Total Protein 7.0 g/dL (6.4-8.2) 07/13/17 05:20 Albumin 2.9 g/dL (3.4-5.0) L 07/13/17 05:20 Globulin 4.1 g/dL (2.5-4.5) 07/13/17 05:20 Albumin/Globulin Ratio 0.7 Ratio (1.1-2.1) L 07/13/17 05:20 Triglycerides 62 mg/dL (0-150) 07/06/17 10:45 Cholesterol 103 mg/dL (0-200) 07/06/17 10:45 LDL Cholesterol, Calc 47 mg/dL (0-100) 07/06/17 10:45 HDL Cholesterol 44 mg/dL (40-60) 07/06/17 10:45 Cholesterol/HDL Ratio 2.3 (0.0-5.0) 07/06/17 10:45 Amylase 65 Units/L (25-115) 07/05/17 18:40 Lipase 293 Units/L (73-393) 07/05/17 18:40 Free PSA 0.5 ng/mL 07/07/17 05:20 % Free PSA Calc 38 % 07/07/17 05:20 Total PSA 1.3 ng/mL (0.0-4.0) 07/07/17 05:20 Vitamin B6 22.0 nmol/L (20.0-125.0) 07/07/17 05:20 Vitamin B12 1889 pg/mL (193-986) H 07/06/17 10:45 Vitamin D 25-Hydroxy 27 ng/mL (30-80) L 07/07/17 05:20 Folate 15.1 ng/mL (>8.6) 07/06/17 10:45 Free T4 0.96 ng/dL (0.76-1.46) 07/06/17 10:45 TSH 3rd Generation 0.165 uIU/mL (0.358-3.74) L 07/06/17 10:45 Total Estradiol 21.9 pg/mL (10.0-42.0) 07/07/17 05:20 Total Testosterone 302 ng/dL (300-720) 07/07/17 05:20 Free Testosterone Calc 40 pg/mL (47-244) L 07/07/17 05:20 % Free Testosterone 1.3 % (1.6-2.9) L 07/07/17 05:20 Sex Hormone Bind Glob 55 nmol/L (11-80) 07/07/17 05:20 DHEA 0.311 ng/mL (0.630-4.700) L 07/07/17 05:20 Insulin-like GF I 92 ng/mL 07/07/17 05:20 Cortisol 6.7 ug/dL 07/07/17 05:20 Specimen Type Clean catch urine 07/06/17 01:19 Urine Color Dark yellow (YELLOW) 07/06/17 01:19 Urine Appearance Clear (CLEAR) 07/06/17 01:19 Urine pH 5.0 (5.0 - 8.0) 07/06/17 01:19 Ur Specific [place] 1.020 (1.000-1.030) 07/06/17 01:19 Urine Protein 2+ (NEGATIVE) 07/06/17 01:19 Urine Glucose (UA) Negative (NEGATIVE) 07/06/17 01:19 Urine Ketones 3+ (NEGATIVE) 07/06/17 01:19 Urine Occult Blood Negative (NEGATIVE) 07/06/17 01:19 Urine Nitrite Negative (NEGATIVE) 07/06/17 01:19 Urine Bilirubin Negative (NEGATIVE) 07/06/17 01:19 Urine Urobilinogen Normal (NORMAL) 07/06/17 01:19 Ur Leukocyte Esterase 1+ (NEGATIVE) 07/06/17 01:19 Urine RBC None seen /HPF (NONE SEEN) 07/06/17 01:19 Urine WBC 0-2 /HPF (NONE SEEN) 07/06/17 01:19 Ur Squamous Epith Cells Rare /HPF (NEGATIVE) 07/06/17 01:19 Urine Bacteria Negative /HPF (NEGATIVE) 07/06/17 01:19 Ur Culture Indicated? No/not indicated 07/06/17 01:19 Stool Description 20g,soft,unformed, 07/10/17 11:20 Stl Occult Blood (IFOB) Negative (NEGATIVE) 07/10/17 11:20 Stool for White Cells Positive (NEGATIVE) A 07/10/17 11:20 Stl C. diff Tox B Gene Negative (NEGATIVE) 07/10/17 11:20 Stl C. diff [id number] Negative (NEGATIVE) 07/10/17 11:20 Vancomycin Trough 8.1 ug/mL (15-20) L 07/12/17 20:31 Cryptosporid parvum Ag Negative (NEGATIVE) 07/10/17 11:20 E. histolytica Antigen Negative (NEGATIVE) 07/10/17 11:20 Giardia lamblia Ag Negative (NEGATIVE) 07/10/17 11:20 - Plan (1) Pneumonia Status: Acute Qualifiers: Aspiration pneumonia type: unspecified Laterality: right Lung location: lower lobe of lung Plan: FORTAZ 1GM IV TID, CIPRO 400MG IV Q2H, RESPIRATORY TREATMENTS, SUPPLEMENTAL OXYGEN, CONTINUE TO MONITOR (2) Abdominal pain Status: Acute Qualifiers: Abdominal location: generalized Qualified Code(s): R10.84 - Generalized abdominal pain Plan: FORTAZ 1GM IV Q8H, PEPCID IV, PROTONIX IV, DEMEROL IV PRN PAIN, CONTINUE TO MONITOR (3) Diarrhea Status: Resolved Qualifiers: Diarrhea type: presumed infectious Qualified Code(s): R19.7 - Diarrhea, unspecified Plan: STOOL STUDIES, CONTINUE TO MONITOR
== END 2017-07-13 13:25 | disposition home or self-care (01) | DRG 178 ==
LOC: MED/SURG 17:39 → OBSVTOIN 07-07 16:00
PROVIDERS: ADMIT Internal Medicine; ATTEND Internal Medicine
DX: J15.212 Pneumonia due to Methicillin resistant Staphylococcus aureus (principal); R10.12 Left upper quadrant pain; E11.65 Type 2 diabetes mellitus with hyperglycemia; E29.1 Testicular hypofunction; E78.2 Mixed hyperlipidemia; I10 Essential (primary) hypertension; E55.9 Vitamin D deficiency, unspecified; R11.0 Nausea; R10.11 Right upper quadrant pain; R19.7 Diarrhea, unspecified; N40.0 Benign prostatic hyperplasia without lower urinary tract symptoms; R06.02 Shortness of breath; R07.89 Other chest pain; I51.7 Cardiomegaly; J90 Pleural effusion, not elsewhere classified; R79.82 Elevated C-reactive protein (CRP); I25.10 Atherosclerotic heart disease of native coronary artery without angina pectoris; M19.90 Unspecified osteoarthritis, unspecified site; I50.9 Heart failure, unspecified
CPT/HCPCS: 36415; 71045; 71260; 74176; 76705; 80053; 80061; 80202; 81001; 82150; 82274; 82306; 82533; 82550; 82553; 82565; 82607; 82626; 82670; 82728; 82746; 83036; 83605; 83630; 83690; 83735; 84153; 84154; 84207; 84270; 84305; 84402; 84403; 84439; 84443; 84484; 85025; 86141; 87040; 87045; 87070; 87077; 87186; 87205; 87328; 87329; 87336; 87427; 87449; 87493; 93005; 94640; 94760; A4216; A4222; C9113; S0028; G0378; J0713; J0744; J1940; J2175; J2405; J3370; J7613

== ENCOUNTER 2019-12-03 21:38 | Inpatient (IN) ==
--- NOTE | 2019-12-03 21:51 | DR.SOBA ---
HPI Time Seen Time Seen by Provider: 12/03/19 21:51 HPI Comment HPI Comment: PATIENT IS 84YR OLD MALE WHO IS COVID 19 POSITIVE IN ER VIA EMS WITH INCREASING SOB, O2 DESATURATION, PRODUCTIVE CPUGH, YELLOW SPUTUM, FEVER AND PLEURITIC CHEST PAIN FOR FEW DAYS. PATIENT IS WEAK AND HAVING LOW O2 SATURATION ESPECIALLY WITH EXERTION. HAVING GENERALIZED MUSCLE WEAKNESS. COUGH IS PRODUCTIVE WITH YELLOW SPUTUM. ALSO HAVING MODERATE PLEURITIC CHEST PAIN. NO DYSURIA. HAD FEVER ON AND OFF. Complaints Chief Complaint Doctors Comments: INCREASING SOB, COUGH, FEVER AND CHEST TIGHTNESS. COVID-19 Coronavirus risk:travel/contact w/high risk person: No Has patient experienced Coronavirus symptoms: No Reviewed Nurses Notes Reviewed: Yes Source History Provided: Patient Mode of Arrival Mode of Arrival: EMS Duration Duration: Days Context Onset:: At Rest History of:: None Currently on:: Neither Prehospital Care:: None Modifying Factors Worsens:: Exertion Improves:: Rest Associated Signs and Symptoms Associated Signs and Symptoms: Cough and Chest Pain (CHEST TIGHTNESS.) If Chest Pain Quality: Pleuritic Location: Substernal If Cough Cough: Productive and Yellow Other History Other History: DM, HTN AND CAD. PMH PMH Past Medical History: Coronary Artery Disease, Diabetes, Hypertension and Kidney Stones Past Surgical History: Yes Surgical History: Angioplasty/Stents, Appendectomy, CABG/Valve Surgery, Lithotripsy and Other Family History Family Medical History: Diabetes Mellitus, Heart Failure and Hypertension Social History Do you use any recreational Drugs:: No ROS Review of Systems Constitutional: No Symptoms Reported, See HPI, Fever, Weakness and Fatigue Eyes: No Symptoms Reported and See HPI ENTM: See HPI, Nose Discharge and Nose Congestion; negative Ear Pain and Throat Pain Respiratoy: See HPI, Productive Cough and Short of Breath; negative Wheezing Cardiovascular: See HPI and Chest Pain; negative Edema Gastrointestinal/Abdominal: No Symptoms Reported and See HPI; negative Abdominal Pain, Diarrhea and Vomiting Genitourinary: No Symptoms Reported and See HPI; negative Hematuria Neurological: See HPI, Headache and Weakness; negative Dizziness Musculoskeletal: See HPI and Muscle Pain Integumentary: No Symptoms Reported and See HPI; negative Change in Color, Rash and Juandice Hematologic/Lymphatic: No Symptoms Reported; negative Easy Bruising and Swollen Glands Endocrine: No Symptoms Reported and See HPI; negative Increased Thirst and Increased Urine Psychiatric: No Symptoms Reported and See HPI All Other Systems: Reviewed and Negative PE Vital Signs Vitals: Temperature 99.6 F Pulse Rate 63 Respiratory Rate 22 Blood Pressure [Right Arm] 176/72 Blood Pressure [Left Arm] 140/65 Blood Pressure 148/64 O2 Sat by Pulse Oximetry 95 General Limitations: No Limitations General Appearance: Alert and In Distress Head Head Exam: Normal Inspection and Atraumatic Eyes Eye exam: Normal Appearance and PERRL; negative Scleral Icterus and Conjunctival Injection ENT ENT Exam: Normal External Ear Exam and TM's Normal Bilaterally; negative Normal Oropharynx Neck Neck Exam: Normal Inspection and Trachea Midline; negative Tenderness and Lymphadenopathy Chest Chest Inspection: Normal Inspection and Symmetric Chest Wall Rise; negative Tenderness Respiratory Respiratory Exam: Respiratory Distress; negative Accessory Muscle Use and Chest Wall Tenderness Respiratory Exam: Bilateral: Rhonchi and Lower: Rhonchi Cardiovascular Cardiovascular Exam: Regular Rate, Normal Rhythm and Normal Heart Sounds; negative Systolic Murmur and Diastolic Murmur Abdominal Exam Abdominal Exam: Normal Inspection, Normal Bowel Sounds and Soft; negative Tenderness Extremities Extremities Exam: Normal Inspection and Normal Capillary Refill; negative Tenderness, Edema and Calf Tenderness Back Back Exam: Normal Inspection; negative (R) CVA Tenderness and (L) CVA Tenderness Neurologic Neurological Exam: Alert, Oriented X3 and CN II-XII Intact; negative Motor Sensory Deficit Psychiatric Psychiatric Exam: Normal Affect and Normal Mood Skin Skin Exam: Warm, Dry, Intact and Normal Color MDM Differential Diagnosis Differential Diagnosis: Bronchitis, CHF, Dysrhythmia, Hyponatremia, Mycardial Infarction, Pneumonia, Pneumothorax, Respiratory Insufficiency and URI COURSE Treatment Treatment: SEE ORDERS. Education/Counseling Education/Counseling: Patient Educated On: Diagnosis and Needs for Follow Up ROR Labs Reviewed Laboratory Results Reviewed?: Yes Result Diagrams: 12/06/19 04:19 12/05/19 05:10 Laboratory: 12/03/19 22:27 Blood Blood Culture - Preliminary 12/03/19 22:20 Blood Blood Culture - Preliminary WBC 5.6 X10^3/uL (3.6-10.0) 12/03/19 22:20 RBC 4.47 X10^6/uL (4.7-6.0) L 12/03/19 22:20 Hgb 12.1 g/dL (13.5-18.0) L 12/03/19 22:20 Hct 36.9 % (42.0-54.0) L 12/03/19 22:20 MCV 82.5 fL (80.0-100.0) 12/03/19 22:20 MCH 27.1 pg (27.0-34.0) 12/03/19 22:20 MCHC 32.8 g/dL (33.0-35.0) L 12/03/19 22:20 RDW 15.0 % (11.6-16.5) 12/03/19:20 Plt Count 168 X10^3/uL (150.0-450.0) 12/03/19 22:20 MPV 8.1 fL (7.4-11.0) 12/03/19 22:20 Neut % (Auto) 72.4 % (42.0-75.0) 12/03/19 22:20 Lymph % (Auto) 11.7 % (21.0-51.0) L 12/03/19 22:20 Toombs % (Auto) 14.7 % (0.0-13.0) H 12/03/19 22:20 Eos % (Auto) 1.0 % (0.9-2.9) 12/03/19 22:20 Baso % (Auto) 0.2 % (0.2-1.0) 12/03/19 22:20 Neut # (Auto) 4.0 x10^3/uL (2.2-4.8) 12/03/19 22:20 Lymph # (Auto) 0.7 X10^3/uL (1.3-2.9) L 12/03/19 22:20 [place]ombs # (Auto) 0.8 x10^3/uL (0.3-0.8) 12/03/19 22:20 Eos # (Auto) 0.1 x10^3/uL (0.0-0.2) 12/03/19 22:20 Baso # (Auto) 0.0 X10^3/uL (0.0-0.1) 12/03/19 22:20 Absolute Nucleated RBC 0.0 /100WBC 12/03/19 22:20 Sample Site Rr 12/03/19 22:38 ABG pH 7.440 (7.35-7.45) 12/03/19:38 ABG pCO2 40.0 mmHg (35.0-45.0) 12/03/19 22:38 ABG pO2 45.0 mmHg (80.0-100.0) L* 12/03/19 22:38 ABG HCO3 27.2 mmol/L (22-26) H 12/03/19 22:38 ABG O2 Saturation 83.0 % (90-100) L* 12/03/19 22:38 ABG Base Excess 2.8 mmol/L (-2.0-2.0) H 12/03/19 22:38 Den Test Pos 12/03/19 22:38 A-a Gradient 55.0 mmHg 12/03/19 22:38 FiO2 21.0 12/03/19 22:38 Blood Gas Comments [facility] well ae 12/03/19 22:38 Sodium 138 mmol/L (136-145) 12/03/19 22:20 Corrected Sodium 139 mmol/L (136-145) 12/03/19 22:20 Potassium 4.5 mmol/L (3.5-5.1) 12/03/19 22:20 Chloride 102 mmol/L (98-107) 12/03/19 22:20 Carbon Dioxide 27.6 mmol/L (21-32) 12/03/19 22:20 BUN 16 mg/dL (7-18) 12/03/19 22:20 Creatinine 1.02 mg/dL (0.70-1.30) 12/03/19 22:20 Est GFR (MDRD) Af Amer > 60 (>60) 12/03/19 22:20 Est GFR (MDRD) Non-Af > 60 (>60) 12/03/19 22:20 Glucose 144 mg/dL (65-99) H 12/03/19 22:20 Lactic Acid 1.0 mmol/L (0.4-2.0) 12/03/19 22:20 Calcium 9.0 mg/dL (8.5-10.1) 12/03/19 22:20 Corrected Calcium 9.6 mg/dL (8.5-10.1) 12/03/19 22:20 Ferritin 230 ng/mL (26-388) 12/03/19 22:20 Total Bilirubin 0.40 mg/dL (0.2-1.0) 12/03/19 22:20 AST 24 Units/L (15-37) 12/03/19 22:20 ALT 19 Units/L (12-78) 12/03/19 22:20 Alkaline Phosphatase 81 Units/L (46-116) 12/03/19 22:20 Lactate Dehydrogenase 259 Units/L (85-227) H 12/03/19 22:20 Creatine Kinase 32 Units/L (39-308) L 12/03/19 22:20 CK-MB (CK-2) < 1.0 ng/mL (0-4.0) 12/03/19 22:20 CK/CKMB % Calc 3.1 % (<4) 12/03/19 22:20 Troponin I < 0.02 ng/mL (0-1.5) 12/03/19 22:20 C-Reactive Protein 76.20 mg/L (0-3.0) H 12/03/19 22:20 B-Natriuretic Peptide 331 pg/mL (0-79) H 12/03/19 22:20 Total Protein 6.8 g/dL (6.4-8.2) 12/03/19 22:20 Albumin 3.3 g/dL (3.4-5.0) L 12/03/19 22:20 Globulin 3.5 g/dL (2.5-4.5) 12/03/19 22:20 Albumin/Globulin Ratio 0.9 Ratio (1.1-2.1) L 12/03/19 22:20 XRAY XRAY Interpreted by: Radiologist (REPORTS NOTED AND DISCUSSED WITH PATIENT.) and Self EKG Rate: 65 Isabel: Normal Rhythm: NSR Block: None Hypertrophy: None ST: Nonsp Opioid Opioid Risk Tool Age ([place] box if 16-45): No History of Preadolescent Sexual Abuse: No Total: 0 Total Score Risk Category: Low Risk Copyright: [facility] predicting aberrant behaviors Diagnosis Discharge Problem: Hypoxia, Breath shortness, Pneumonia due to COVID-19 virus Pneumonia Qualifiers: Pneumonia type: due to unspecified organism Laterality: right Lung location: lower lobe of lung Qualified Code(s): J18.9 - Pneumonia, unspecified organism Instructions Forms: Precautions for COVID19 Patient Portal Social Distancing
[2019-12-03 22:36] LABS: BASOPHILS % (AUTO) 0.2 % (0.2-1.0); EOSINOPHILS # (AUTO) 0.1 x10^3/uL (0.0-0.2); HEMATOCRIT 36.9 % (42.0-54.0); HEMOGLOBIN 12.1 g/dL (13.5-18.0); LYMPHOCYTES # (AUTO) 0.7 X10^3/uL (1.3-2.9); LYMPHOCYTES % (AUTO) 11.7 % (21.0-51.0); MEAN CORPUSCULAR HEMOGLOBIN 27.1 pg (27.0-34.0); MEAN CORPUSCULAR HGB CONC 32.8 g/dL (33.0-35.0); MEAN CORPUSCULAR VOLUME 82.5 fL (80.0-100.0); MEAN PLATELET VOLUME 8.1 fL (7.4-11.0); MONOCYTES # (AUTO) 0.8 x10^3/uL (0.3-0.8); MONOCYTES % (AUTO) 14.7 % (0.0-13.0); NEUTROPHILS % (AUTO) 72.4 % (42.0-75.0); PLATELET COUNT 168 X10^3/uL (150.0-450.0); RED BLOOD COUNT 4.47 X10^6/uL (4.7-6.0); WHITE BLOOD COUNT 5.6 X10^3/uL (3.6-10.0)
[2019-12-03 22:43] LABS: ABG BASE EXCESS 2.8 mmol/L (-2.0-2.0); ABG HCO3 27.2 mmol/L (22-26)
[2019-12-03 22:44] LABS: ABG ALLEN TEST POS
[2019-12-03 22:53] LABS: BLOOD UREA NITROGEN 16 mg/dL (7-18); CARBON DIOXIDE 27.6 mmol/L (21-32); CHLORIDE 102 mmol/L (98-107); COR NA(FOR HYPERGLY) 139 mmol/L (136-145); CREATININE 1.02 mg/dL (0.70-1.30); SODIUM 138 mmol/L (136-145); TROPONIN I < 0.02 ng/mL (0-1.5); eGFR NON BLACK RACES > 60 (>60)
[2019-12-03 22:57] LABS: ALANINE AMINOTRANSFERASE 19 Units/L (12-78); ALBUMIN 3.3 g/dL (3.4-5.0); ALKALINE PHOSPHATASE 81 Units/L (46-116); ASPARTATE AMINO TRANSFERASE 24 Units/L (15-37); CKMB % 3.1 % (<4); COR CA(FOR HYPOALB) 9.6 mg/dL (8.5-10.1); CREATINE KINASE 32 Units/L (39-308); CREATINE KINASE MB < 1.0 ng/mL (0-4.0); TOTAL PROTEIN 6.8 g/dL (6.4-8.2)
[2019-12-04 00:20] VITALS: BMI 27.3
[2019-12-04] MEDS ORDERED: TUSSIONEX PENNKINETIC SUSP PO PRN (00:20)
[2019-12-04] MEDS ORDERED: REMDESIVIR (INVESTIGATIONAL DRUG GS-5734) 200 MG in NS 250 ML IV 250 ML IV SCH (00:20)
[2019-12-04] MEDS ORDERED: TUSSIONEX PENNKINETIC SUSP ONE (00:42)
[2019-12-04] MEDS ORDERED: NS 1/2 1000 ML IV 1,000 ML IV ONE ×2 (00:43→20:49)
[2019-12-04] MEDS ORDERED: REMDESIVIR (INVESTIGATIONAL DRUG GS-5734) IV ONE (00:46)
[2019-12-04] MEDS ORDERED: NS 100 ML IV 100 ML IV ONE (00:47)
[2019-12-04] MEDS ORDERED: NS 250 ML IV 250 ML IV ONE (00:47)
[2019-12-04] MEDS ORDERED: ASCORBIC ACID INJ MULTI-DOSE VIAL IV ONE (00:49)
[2019-12-04] MEDS: NS 1/2 1000 ML IV 1,000 ML IV SCH ×2 (01:21→19:09)
[2019-12-04] MEDS: ZOCOR TAB 20 MG PO SCH ×2 (01:25→20:34)
[2019-12-04 01:39] LABS: BILIRUBIN,URINE NEGATIVE (NEGATIVE); BLOOD/HEMOGLOBIN,URINE NEGATIVE (NEGATIVE); GLUCOSE, URINE NEGATIVE (NEGATIVE); KETONES,URINE NEGATIVE (NEGATIVE); LEUKOCYTE ESTERASE ,URINE NEGATIVE (NEGATIVE); NITRITES,URINE NEGATIVE (NEGATIVE); PROTEIN,URINE 3+ (NEGATIVE); UROBILINOGEN,URINE NORMAL (NORMAL)
[2019-12-04 01:46] LABS: APPEARANCE,URINE CLEAR (CLEAR); COLOR,URINE PALE YELLOW (YELLOW)
[2019-12-04 01:47] LABS: BACTERIA,URINE NEGATIVE /HPF (NEGATIVE); RBC,URINE NONE SEEN /HPF (0-3); SQUAMOUS EPITHELIAL CELL,UR RARE /HPF (NEGATIVE)
[2019-12-04] MEDS ORDERED: ASCORBIC ACID INJ MULTI-DOSE VIAL 1,500 MG in NS 100 ML IV 100 ML IV SCH (03:00)
--- NOTE | 2019-12-04 05:10 | RAD ---
HISTORYSOB, COUGH, FEVER - COVID POSITIVE; 87% ON ROOM AIR;STUDYCHEST, 1 [id number]/24/2018, report onlyFINDINGSThe trachea is midline. The cardiac silhouette is mildly enlarged. Changes of prior CABG surgery noted.. There are patchy infiltrates bilaterally right slightly greater than left. No pleural effusion or pneumothorax.. The bony thorax is unremarkable.IMPRESSIONPatchy bilateral infiltrates, right greater than left.Mild cardiomegalyElectronically signed by: Nasir Jeter (Dec 04, 2019 05:10:31)
[2019-12-04 05:17] LABS: BASOPHILS % (AUTO) 0.3 % (0.2-1.0); EOSINOPHILS # (AUTO) 0.1 x10^3/uL (0.0-0.2); EOSINOPHILS % (AUTO) 1.3 % (0.9-2.9); HEMATOCRIT 36.5 % (42.0-54.0); HEMOGLOBIN 11.8 g/dL (13.5-18.0); LYMPHOCYTES % (AUTO) 21.5 % (21.0-51.0); MEAN CORPUSCULAR HEMOGLOBIN 27.1 pg (27.0-34.0); MEAN CORPUSCULAR HGB CONC 32.4 g/dL (33.0-35.0); MEAN CORPUSCULAR VOLUME 83.7 fL (80.0-100.0); MEAN PLATELET VOLUME 8.5 fL (7.4-11.0); MONOCYTES # (AUTO) 0.8 x10^3/uL (0.3-0.8); MONOCYTES % (AUTO) 18.7 % (0.0-13.0); NEUTROPHILS # (AUTO) 2.6 x10^3/uL (2.2-4.8); NEUTROPHILS % (AUTO) 58.2 % (42.0-75.0); PLATELET COUNT 156 X10^3/uL (150.0-450.0); RED BLOOD COUNT 4.37 X10^6/uL (4.7-6.0); RED CELL DISTRIBUTION WIDTH 15.2 % (11.6-16.5); WHITE BLOOD COUNT 4.5 X10^3/uL (3.6-10.0)
[2019-12-04 05:30] LABS: ALANINE AMINOTRANSFERASE 15 Units/L (12-78); ALBUMIN 2.9 g/dL (3.4-5.0); ALKALINE PHOSPHATASE 73 Units/L (46-116); ASPARTATE AMINO TRANSFERASE 21 Units/L (15-37); BLOOD UREA NITROGEN 14 mg/dL (7-18); CALCIUM 8.6 mg/dL (8.5-10.1); CARBON DIOXIDE 29.6 mmol/L (21-32); CHLORIDE 104 mmol/L (98-107); COR CA(FOR HYPOALB) 9.5 mg/dL (8.5-10.1); COR NA(FOR HYPERGLY) 141 mmol/L (136-145); CREATININE 0.92 mg/dL (0.70-1.30); SODIUM 140 mmol/L (136-145); TOTAL PROTEIN 6.4 g/dL (6.4-8.2); eGFR NON BLACK RACES > 60 (>60)
[2019-12-04] MEDS: DUONEB 0.5 MG/3 MG (3 mL) NEB SCH ×3 (06:12→20:30)
[2019-12-04] MEDS ORDERED: GLUCOPHAGE ONE ×2 (08:49→20:15)
[2019-12-04] MEDS ORDERED: VITAMIN A PO SCH (09:00)
[2019-12-04] MEDS ORDERED: VITAMIN D (1.25MG) PO SCH (09:00)
[2019-12-04] MEDS ORDERED: TAB-A-VITE PO SCH (09:00)
[2019-12-04] MEDS ORDERED: LOVENOX INJ 30 MG SYR SC SCH (09:00)
[2019-12-04] MEDS ORDERED: PLAQUENIL PO SCH ×2 (09:00)
[2019-12-04] MEDS: PULMICORT NEB TX 0.5 MG NEB SCH ×2 (09:00→20:30)
[2019-12-04] MEDS ORDERED: MULTIVITAMIN PO SCH (09:00)
[2019-12-04] MEDS ORDERED: PriLOSEC PO SCH (09:00)
[2019-12-04] MEDS ORDERED: VIT C E ZN COPPR LUTEIN ZEAXAN PO SCH (09:00)
[2019-12-04] MEDS ORDERED: DECADRON TAB PO SCH (09:00)
[2019-12-04] MEDS: AMARYL TAB 4 MG PO SCH (09:15)
[2019-12-04] MEDS: FLONASE NASAL SPRAY ENOSTRIL SCH ×2 (09:15→20:35)
[2019-12-04] MEDS: GLUCOPHAGE PO SCH ×2 (09:15→20:34)
[2019-12-04] MEDS: TAB-A-VITE PO SCH (09:15)
[2019-12-04] MEDS: ZINC SULFATE PO SCH ×2 (09:15→20:33)
[2019-12-04] MEDS: NORVASC TAB 10 MG PO SCH (09:15)
[2019-12-04] MEDS: TRICOR TAB 160 MG PO SCH (09:15)
[2019-12-04] MEDS: NEURONTIN CAP 300 MG PO SCH ×2 (09:15→20:35)
[2019-12-04] MEDS: ASPIRIN EC 81 MG PO SCH (09:15)
[2019-12-04] MEDS: ROBITUSSIN DM PO SCH ×4 (09:15→20:33)
[2019-12-04] MEDS ORDERED: LEVAQUIN PREMIX IV 750 MG 750 MG/150 ML BAG IV SCH (11:00)
--- NOTE | 2019-12-04 12:37 | DR.H&P ---
H&P - History & Physical for Day of: H&P Date: 12/03/19 - Chief Complaint Chief Complaint: SOB, COUGH, FEVER, WEAKNESS, COVID-19 POSITIVE - History of Present Illness History of Present Illness: IS A 84 YEAR OLD PATIENT OF OURS. HE VA ESENTED TO THE ER WITH SHORTNESS OF BREATH, PRODUCTIVE COUGH, FEVER, AND WEAKNESS. SYMPTOMS HAVE BEEN PRESENT FOR APPROXIMATELY ONE WEEK. HE DOES ADMIT TO TESTING POSITIVE FOR COVID-19. HE HAS BEEN TAKING PLAQUENIL 200MG PO BID SINCE 12/01/19. PRIOR TO THAT, HE TOOK LEVAQUIN 750MG PO BID, SYMBIOCRT INHALER, AND DOXYCYCLINE 100MG PO BID. HE DENIES IMPROVEMENT IN SYMPTOMS DESPITE COMPLIANCE WITH MEDICATIONS. HIS PMH INCLUDES: CAD, DIABETES, HTN, HYPERLIPIDEMIA, GERD, CABG, STENTS, AND AN APPENDECTOMY. AUSCULTATION OF LUNG FERGUSON REVEALED SCATTERED WHEEZING. ON ARRIVAL TO THE ER, VITALS WERE 99.6- 77-22-87%RA-145/66. HE WAS PLACED ON NASAL CANNULA AT 2L/MIN. LABS WERE OBTAINED. ABNORMAL LAB VALUES INCLUDE THE FOLLOWING: RBC 4.47, HGB 12.1, HCT 36.9, GLUCOSE 144, CREATINE KINASE 32, BNP 331, ALBUMIN 3.3. AN ABG WAS OBTAINED AND REVEALED: PH 7.440, PC02 40, P02 45, HC03 27.2, 02 SAT 83, BASE EXCESS 2.8, FI02 21.0. CARDIAC ENZYMES WERE WITHIN NORMAL LIMITS. EKG OBTAINED AND REVEALED: SINUS RHYTHM WITH HR 65. A CHEST XRAY WAS OBTAINED AND REVEALED: Patchy bilateral infiltrates, right greater than left. Mild cardiomegaly. BLOOD AND SPUTUM CULTURES WERE SET UP. HE WAS ADMITTED TO THE HOSPITAL FOR FURTHER EVALUATION AND TREATMENT OF PNEUMONIA DUE TO COVID-19 AND HYPOXIA. HE WAS STARTED ON NS AT 75ML/HR, REMDESIVIR 100MG IV DAILY, LEVAQUIN 750MG IV DAILY, SOLU-MEDROL 80MG IV Q8H, DUONEBS TID, PULMICORT NEBS BID, MUCOMYST IN NEB [place] BID, PEPCID 20MG IV DAILY, PROTONIX 40MG IV DAILY, ROBITUSSIN DM 10 ML PO QID, TUSSIONEX 5ML PO Q12H, TESSALON PERLES TID, LOVENOX 30MG SC BID, HUMULIN R SL IDING SCALE, GLUCOPHAGE 1000MG PO BID, AMARYL 6MG PO DAILY, ZOCOR 20MG PO HS, NEURONTIN 300MG PO BID, FLONASE 1 SPRAY TO EACH NOSTRIL BID, NORVASC 10MG PO DAILY, ASPIRIN 81MG PO DAILY, ZINC 220MG PO BID, TRICOR 160MG PO DAILY, AND ZOFRAN 4MG IV Q6H PRN. WE WILL ORDER FOR THE SMART VEST TO BE USED. WE WILL ALSO ORDER A UNIT OF CONVALESCENT PLASMA TO BE TRANSFUSED WHEN IT IS AVAILABLE. OTHERWISE, WE WILL FOLLOW UP WITH AM LABS, CHEST XRAY, ABG, AND CONTINUE TO MONITOR. - Past Medical History Past Medical History: Coronary Artery Disease, Hypertension, Diabetes, Kidney Stones - Past Surgical History Surgical History: Angioplasty/Stents, Appendectomy, CABG/Valve Surgery, Lithotripsy - Family History Family Medical History: Diabetes Mellitus - Social History Type of Tobacco Use: None Does any household member use tobacco: No Alcohol Use: None Drug Use: None - Medications Home Medications: penicillin G Adverse Reaction (Verified 07/05/17 18:34) CONTINUE taking the following medications amlodipine 10 mg PO DAILY 12/03/19 [History] hydroxychloroquine 200 mg PO BID 12/03/19 [History] metformin 1,000 mg PO BID 12/03/19 [History] multivitamin [Multiple Vitamins] 1 tab PO QAM 12/03/19 [History] simvastatin 20 mg PO QHS 12/03/19 [History] vit C,V-Ej-iqrmd-lutein-zeaxan [PreserVision AREDS-2] 1 tab PO BID 12/03/19 [History] - Review of Systems Constitutional: Fever, Chills, Weakness Eyes: No Symptoms Reported ENT: No Symptoms Reported Respiratory: See HPI, Cough, Shortness of Breath, SOB with Excertion, Wheezing Cardiovascular: No Symptoms Reported Gastrointestinal: No Symptoms Reported Genitourinary: No Symptoms Reported Musculoskeletal: No Symptoms Reported Skin: No Symptoms Reported Neurological: Weakness - Physical Exam Vital Signs: Temperature 99 F Pulse Rate [Left] 72 Pulse Rate 73 Respiratory Rate 22 Blood Pressure [Right Arm] 182/83 Blood Pressure [Left Arm] 140/65 Blood Pressure 148/64 O2 Sat by Pulse Oximetry 88 Oriented: Normal Eyes: Normal Ear: Normal Nose: Normal Throat: Normal Respiratory: Diminished Throughout, Wheezes Throughout Cardiovascular: Normal : Normal Auscultation: Bowel Sounds: Normal Palpation: Normal Tenderness: Normal Skin: Normal Musculoskeletal: Normal Psychiatric: Normal Mood Description: Calm Affect: Normal Speech Pattern: Clear - Assessment/Plan (1) Pneumonia due to COVID-19 virus Status: Acute Plan: NS AT 75ML/HR, REMDESIVIR 100MG IV DAILY, LEVAQUIN 750MG IV DAILY, SOLU- MEDROL 80MG IV Q8H, DUONEBS TID, PULMICORT NEBS BID, MUCOMYST IN NEB [place] BID, PEPCID 20MG IV DAILY, PROTONIX 40MG IV DAILY, ROBITUSSIN DM 10 ML PO QID, TUSSIONEX 5ML PO Q12H, TESSALON PERLES TID, LOVENOX 30MG SC BID, HUMULIN R SLIDING SCALE, GLUCOPHAGE 1000MG PO BID, AMARYL 6MG PO DAILY, ZOCOR 20MG PO HS, NEURONTIN 300MG PO BID, FLONASE 1 SPRAY TO EACH NOSTRIL BID, NORVASC 10MG PO DAILY, ASPIRIN 81MG PO DAILY, ZINC 220MG PO BID, TRICOR 160MG PO DAILY, AND ZOFRAN 4MG IV Q6H PRN. SUPPLEMENTAL OXYGEN, SMART VEST, CONVALESCENT PLASMA WHEN AVAILABLE (2) Hypoxia Status: Acute (3) Diabetes mellitus, type 2 Qualifiers: Diabetes mellitus senior living insulin use: with senior living use Diabetes mellitus complication status: without complication Qualified Code(s): E11.9 - Type 2 diabetes mellitus without complications; Z79.4 - MCFP (current) use of insulin Status: Chronic (4) Hypertension Qualifiers: Hypertension type: essential hypertension Qualified Code(s): I10 - Essential (primary) hypertension Status: Chronic (5) CAD (coronary artery disease) Qualifiers: Coronary Disease-Associated Artery/Lesion type: [place] artery [place] vs. transplanted heart: [place] heart Associated angina: angina presence unspecified Qualified Code(s): I25.10 - Atherosclerotic heart disease of [place] coronary artery without angina pectoris Status: Chronic (6) Hyperlipidemia Qualifiers: Hyperlipidemia type: mixed hyperlipidemia Qualified Code(s): E78.2 - Mixed hyperlipidemia Status: Chronic (7) GERD (gastroesophageal reflux disease) Qualifiers: Esophagitis presence: esophagitis presence not specified Qualified Code(s): K21.9 - Gastro-esophageal reflux disease without esophagitis Status: Chronic - Allergies Allergies/Adverse Reactions: Allergies Allergy/AdvReac Type Severity Reaction Status Date / Time penicillin G AdvReac Verified 07/05/17 18:34
[2019-12-04] MEDS: LOVENOX INJ 30 MG SYR SC SCH ×2 (13:30→20:35)
[2019-12-04] MEDS: PROTONIX INJ 40 MG VIAL IVP SCH (13:30)
[2019-12-04] MEDS: TUSSIONEX PENNKINETIC SUSP PO SCH ×2 (13:30→23:48)
[2019-12-04] MEDS: PEPCID 20 MG IV PREMIX* 20 MG/50 ML BAG IV SCH (13:30)
[2019-12-04] MEDS: SOLU-Medrol 40 MG VIAL IVP SCH ×2 (14:30→21:52)
[2019-12-04] MEDS: TESSALON PERLES PO SCH ×2 (14:30→21:52)
[2019-12-04] MEDS ORDERED: MUCOMYST (RESPIRATORY USE ONLY) ONE (19:58)
[2019-12-04] MEDS: MUCOMYST (RESPIRATORY USE ONLY) NEB SCH (20:30)
[2019-12-04] MEDS: SNACK - Diabetic Appropriate PO SCH (20:33)
[2019-12-04] MEDS: REMDESIVIR (INVESTIGATIONAL DRUG GS-5734) 100 MG in NS 250 ML IV 250 ML IV SCH (20:34)
[2019-12-05 04:58] LABS: ABG BASE EXCESS -7.7 mmol/L (-2.0-2.0); ABG HCO3 18.3 mmol/L (22-26)
[2019-12-05 04:59] LABS: ABG ALLEN TEST POS
[2019-12-05] MEDS: DUONEB 0.5 MG/3 MG (3 mL) NEB SCH ×3 (05:00→21:12)
[2019-12-05 05:19] LABS: FRACTIONATED INSPIRED OXYGEN 32
[2019-12-05] MEDS: TESSALON PERLES PO SCH ×3 (05:44→21:15)
[2019-12-05] MEDS: NS 1/2 1000 ML IV 1,000 ML IV SCH ×2 (05:44→13:30)
[2019-12-05] MEDS: SOLU-Medrol 40 MG VIAL IVP SCH ×3 (05:44→21:15)
[2019-12-05 05:46] LABS: BASOPHILS % (AUTO) 0.2 % (0.2-1.0); HEMATOCRIT 37.8 % (42.0-54.0); HEMOGLOBIN 12.2 g/dL (13.5-18.0); LYMPHOCYTES # (AUTO) 0.6 X10^3/uL (1.3-2.9); LYMPHOCYTES % (AUTO) 13.1 % (21.0-51.0); MEAN CORPUSCULAR HEMOGLOBIN 27.1 pg (27.0-34.0); MEAN CORPUSCULAR HGB CONC 32.3 g/dL (33.0-35.0); MEAN CORPUSCULAR VOLUME 84.1 fL (80.0-100.0); MEAN PLATELET VOLUME 8.8 fL (7.4-11.0); MONOCYTES # (AUTO) 0.3 x10^3/uL (0.3-0.8); MONOCYTES % (AUTO) 5.9 % (0.0-13.0); NEUTROPHILS # (AUTO) 3.5 x10^3/uL (2.2-4.8); NEUTROPHILS % (AUTO) 80.8 % (42.0-75.0); PLATELET COUNT 191 X10^3/uL (150.0-450.0); RED BLOOD COUNT 4.49 X10^6/uL (4.7-6.0); RED CELL DISTRIBUTION WIDTH 14.8 % (11.6-16.5); WHITE BLOOD COUNT 4.3 X10^3/uL (3.6-10.0)
--- NOTE | 2019-12-05 05:59 | RAD ---
HISTORYSOBSTUDYCHEST, 1 [id number] view of the chestFINDINGSThe cardiac silhouette is mildly enlarged. Status post median sternotomy. Stable bilateral airspace disease. No pleural effusion or pneumothorax.IMPRESSIONNo significant change.Electronically signed by: Josiah Adair (Dec 05, 2019 05:59:32)
[2019-12-05] MEDS ORDERED: TYLENOL 325 MG TAB PO PRN (06:01)
[2019-12-05 06:05] LABS: ALANINE AMINOTRANSFERASE 19 Units/L (12-78); ALBUMIN 2.9 g/dL (3.4-5.0); ALKALINE PHOSPHATASE 76 Units/L (46-116); ASPARTATE AMINO TRANSFERASE 27 Units/L (15-37); BLOOD UREA NITROGEN 25 mg/dL (7-18); CALCIUM 8.3 mg/dL (8.5-10.1); CARBON DIOXIDE 20.9 mmol/L (21-32); CHLORIDE 101 mmol/L (98-107); COR CA(FOR HYPOALB) 9.2 mg/dL (8.5-10.1); COR NA(FOR HYPERGLY) 142 mmol/L (136-145); CREATININE 1.43 mg/dL (0.70-1.30); SODIUM 138 mmol/L (136-145); TOTAL PROTEIN 6.9 g/dL (6.4-8.2); eGFR NON BLACK RACES 50 (>60)
[2019-12-05] MEDS ORDERED: TYLENOL 325 MG TAB PO ONE ×2 (06:05→17:02)
[2019-12-05] MEDS ORDERED: GLUCOPHAGE ONE ×2 (08:34→20:34)
[2019-12-05] MEDS: ROBITUSSIN DM PO SCH ×4 (09:20→21:15)
[2019-12-05] MEDS: NEURONTIN CAP 300 MG PO SCH ×2 (09:20→21:15)
[2019-12-05] MEDS: LOVENOX INJ 30 MG SYR SC SCH ×2 (09:20→21:15)
[2019-12-05] MEDS: ASPIRIN EC 81 MG PO SCH (09:20)
[2019-12-05] MEDS: PROTONIX INJ 40 MG VIAL IVP SCH (09:20)
[2019-12-05] MEDS: TRICOR TAB 160 MG PO SCH (09:20)
[2019-12-05] MEDS: GLUCOPHAGE PO SCH ×2 (09:20→21:15)
[2019-12-05] MEDS: AMARYL TAB 4 MG PO SCH (09:20)
[2019-12-05] MEDS: NORVASC TAB 10 MG PO SCH (09:20)
[2019-12-05] MEDS: ZINC SULFATE PO SCH ×2 (09:20→21:15)
[2019-12-05] MEDS: FLONASE NASAL SPRAY ENOSTRIL SCH ×2 (09:20→21:15)
[2019-12-05] MEDS: TAB-A-VITE PO SCH (09:20)
[2019-12-05] MEDS: MUCOMYST (RESPIRATORY USE ONLY) NEB SCH ×3 (09:30→21:12)
[2019-12-05] MEDS: PULMICORT NEB TX 0.5 MG NEB SCH ×2 (09:30→21:12)
[2019-12-05] MEDS: PEPCID 20 MG IV PREMIX* 20 MG/50 ML BAG IV SCH (11:00)
[2019-12-05] MEDS: TUSSIONEX PENNKINETIC SUSP PO SCH ×2 (11:02→22:00)
--- NOTE | 2019-12-05 12:00 | PCM.PROG ---
Progress Note - Progress Note for Day of Date of Exam: 12/05/19 - Subjective Subjective: IS BEING TREATED FOR PNEUMONIA DUE TO COVID-19 AND HYPOXIA. TODAY, HE IS ALERT AND ORIENTED, LYING IN BED ON MORNING ROUNDS. HE CONTINUES WITH COMPLAINTS OF COUGH, SHORTNESS OF BREATH, AND WEAKNESS. HE IS CURRENTLY RECEIVING OXYGEN VIA NASAL CANNULA AT 3L/MIN. HE DENIES SIGNIFICANT CHANGE IN SYMPTOMS SINCE ADMISSION. ON EXAMINATION, HEART IS REGULAR IN RATE AND RHYTHM. BILATERAL LUNGS ARE NOTED WITH SCATTERED WHEEZING THROUGHOUT. ABDOMEN IS ROUND, SOFT, AND NON-TENDER WITH NORMAL BOWEL SOUNDS NOTED IN ALL QUADRANTS. HIS VITALS THIS MORNING ARE: 97.6-85-18-91%NC-161/74. LABS WERE OBTAINED. ABNORMAL LAB VALUES INCLUDE THE FOLLOWING: RBC 4.49, HGB 12.2, HCT 37.8, CARBON DIOXIDE 20.9, BUN 25, CREATININE 1.43, GLUCOSE 274, CALCIUM 8.3, CRP 118.10, ALBUMIN 2.9. AN ABG WAS OBTAINED AND REVEALED: PH 7.290, PC02 38, P02 58, HC03 18.3, 02 SAT 86, FI02 32. BLOOD AND SPUTUM CULTURES ARE PENDING. A CHEST XRAY WAS OBTAINED AND REVEALED: The cardiac silhouette is mildly enlarged. Status post median sternotomy. Stable bilateral airspace disease. No pleural effusion or pneumothorax. HE IS CURRENTLY RECEIVING NS AT 75ML/HR, REMDESIVIR 100MG IV DAILY, LEVAQUIN 750MG IV Q48H, SOLU-MEDROL 80MG IV Q8H, DUONEBS TID, PULMICORT NEBS BID, MUCOMYST IN NEB [place] BID, PEPCID 20MG IV DAILY, PROTONIX 40MG IV DAILY, ROBITUSSIN DM 10 ML PO QID, TUSSIONEX 5ML PO Q12H, TESSALON PERLES TID, LOVENOX 30MG SC BID, HUMULIN R SLIDING SCALE, GLUCOPHAGE 1000MG PO BID, AMARYL 6MG PO DAILY, ZOCOR 20MG PO HS, NEURONTIN 300MG PO BID, FLONASE 1 SPRAY TO EACH NOSTRIL BID, NORVASC 10MG PO DAILY, ASPIRIN 81MG PO DAILY, ZINC 220MG PO BID, TRICOR 160MG PO DAILY, AND ZOFRAN 4MG IV Q6H PRN. WE HAVE ORDERED A UNIT OF CONVALESCENT PLASMA TO BE ADMINISTERED WHEN IT IS AVAILABLE. OTHERWISE, WE PLAN TO FOLLOW UP WITH AM LABS AND CONTINUE TO MONITOR. - Past Medical Family Social History Past Med/Fam/Surg Hx: No changes since H&P Allergies: Allergies penicillin G Adverse Reaction (Verified 07/05/17 18:34) - Review of Systems ROS: No change since H&P - Vital Signs and I&O's Vital Signs: Temperature 97.6 F Pulse Rate [Left] 85 Pulse Rate 96 Respiratory Rate 20 Blood Pressure [Right Arm] 138/63 Blood Pressure [Left Arm] 161/74 Blood Pressure 148/64 O2 Sat by Pulse Oximetry 95 Intake and Output: Intake & Output 12/02/19 12/03/19 12/04/19 12/05/19 11:59 11:59 11:59 11:59 Intake Total 1075 / 1075 3844 / 3844 Output Total 500 / 500 2200 / 2200 Balance 575 / 575 1644 / 1644 - Physical Exam Oriented: Normal Eyes: Normal Ear: Normal Nose: Normal Throat: Normal Respiratory: Generalized, Wheezes Cardiovascular: Normal : Normal Auscultation: Bowel Sounds: Normal Tenderness: Normal Skin: Normal Musculoskeletal: Normal Psychiatric: Normal Mood Description: Calm Affect: Normal Speech Pattern: Clear, Appropriate - Laboratory and Diagnostics Result Diagrams: 12/05/19 05:10 12/05/19 05:10 Labs: 12/04/19 01:09 Sputum - Expectorated Sputum Sputum Culture - Preliminary 12/04/19 01:09 Sputum - Expectorated Sputum - Final 12/03/19 22:27 Blood Blood Culture - Preliminary 12/03/19 22:20 Blood Blood Culture - Preliminary Laboratory WBC 4.3 X10^3/uL (3.6-10.0) 12/05/19 05:10 RBC 4.49 X10^6/uL (4.7-6.0) L 12/05/19 05:10 Hgb 12.2 g/dL (13.5-18.0) L 12/05/19 05:10 Hct 37.8 % (42.0-54.0) L 12/05/19 05:10 MCV 84.1 fL (80.0-100.0) 12/05/19 05:10 MCH 27.1 pg (27.0-34.0) 12/05/19 05:10 MCHC 32.3 g/dL (33.0-35.0) L 12/05/19 05:10 RDW 14.8 % (11.6-16.5) 12/05/19 05:10 Plt Count 191 X10^3/uL (150.0-450.0) 12/05/19 05:10 MPV 8.8 fL (7.4-11.0) 12/05/19 05:10 Neut % (Auto) 80.8 % (42.0-75.0) H 12/05/19 05:10 Lymph % (Auto) 13.1 % (21.0-51.0) L 12/05/19 05:10 [place] % (Auto) 5.9 % (0.0-13.0) 12/05/19 05:10 Eos % (Auto) 0.0 % (0.9-2.9) L 12/05/19 05:10 Baso % (Auto) 0.2 % (0.2-1.0) 12/05/19 05:10 Neut # (Auto) 3.5 x10^3/uL (2.2-4.8) 12/05/19 05:10 Lymph # (Auto) 0.6 X10^3/uL (1.3-2.9) L 12/05/19 05:10 [place] # (Auto) 0.3 x10^3/uL (0.3-0.8) 12/05/19 05:10 Eos # (Auto) 0.0 x10^3/uL (0.0-0.2) 12/05/19 05:10 Baso # (Auto) 0.0 X10^3/uL (0.0-0.1) 12/05/19 05:10 Absolute Nucleated RBC 0.0 /100WBC 12/05/19 05:10 Sample Site Rr 12/05/19 04:53 ABG pH 7.290 (7.35-7.45) L 12/05/19 04:53 ABG pCO2 38.0 mmHg (35.0-45.0) 12/05/19 04:53 ABG pO2 58.0 mmHg (80.0-100.0) L 12/05/19 04:53 ABG HCO3 18.3 mmol/L (22-26) L 12/05/19 04:53 ABG O2 Saturation 86.0 % (90-100) L 12/05/19 04:53 ABG Base Excess -7.7 mmol/L (-2.0-2.0) L 12/05/19 04:53 Den Test Pos 12/05/19 04:53 A-a Gradient 151.0 mmHg 12/05/19 04:53 FiO2 32 12/05/19 04:53 Blood Gas Comments [facility] 12/05/19 04:53 Sodium 138 mmol/L (136-145) 12/05/19 05:10 Corrected Sodium 142 mmol/L (136-145) 12/05/19 05:10 Potassium 4.2 mmol/L (3.5-5.1) 12/05/19 05:10 Chloride 101 mmol/L (98-107) 12/05/19 05:10 Carbon Dioxide 20.9 mmol/L (21-32) L 12/05/19 05:10 BUN 25 mg/dL (7-18) H 12/05/19 05:10 Creatinine 1.43 mg/dL (0.70-1.30) H 12/05/19 05:10 Est GFR (MDRD) Af Amer > 60 (>60) 12/05/19 05:10 Est GFR (MDRD) Non-Af 50 (>60) L 12/05/19 05:10 Glucose 274 mg/dL (65-99) H 12/05/19 05:10 POC Glucose (mg/dL) 279 mg/dL (65-99) H 12/05/19 11:25 Lactic Acid 1.0 mmol/L (0.4-2.0) 12/03/19 22:20 Calcium 8.3 mg/dL (8.5-10.1) L 12/05/19 05:10 Corrected Calcium 9.2 mg/dL (8.5-10.1) 12/05/19 05:10 Ferritin 219 ng/mL (26-388) 12/05/19 05:10 Total Bilirubin 0.50 mg/dL (0.2-1.0) 12/05/19 05:10 AST 27 Units/L (15-37) 12/05/19 05:10 ALT 19 Units/L (12-78) 12/05/19 05:10 Alkaline Phosphatase 76 Units/L (46-116) 12/05/19 05:10 Lactate Dehydrogenase 259 Units/L (85-227) H 12/03/19 22:20 Creatine Kinase 32 Units/L (39-308) L 12/03/19 22:20 CK-MB (CK-2) < 1.0 ng/mL (0-4.0) 12/03/19 22:20 CK/CKMB % Calc 3.1 % (<4) 12/03/19 22:20 Troponin I < 0.02 ng/mL (0-1.5) 12/03/19 22:20 C-Reactive Protein 118.10 mg/L (0-3.0) H 12/05/19 05:10 B-Natriuretic Peptide 331 pg/mL (0-79) H 12/03/19 22:20 Total Protein 6.9 g/dL (6.4-8.2) 12/05/19 05:10 Albumin 2.9 g/dL (3.4-5.0) L 12/05/19 05:10 Globulin 4.0 g/dL (2.5-4.5) 12/05/19 05:10 Albumin/Globulin Ratio 0.7 Ratio (1.1-2.1) L 12/05/19 05:10 Specimen Type Clean catch urine 12/04/19 01:09 Urine Color Pale yellow (YELLOW) 12/04/19 01:09 Urine Appearance Clear (CLEAR) 12/04/19 01:09 Urine pH 5.0 (5.0 - 8.0) 12/04/19 01:09 Ur Specific [place] 1.005 (1.000-1.030) 12/04/19 01:09 Urine Protein 3+ (NEGATIVE) 12/04/19 01:09 Urine Glucose (UA) Negative (NEGATIVE) 12/04/19 01:09 Urine Ketones Negative (NEGATIVE) 12/04/19 01:09 Urine Occult Blood Negative (NEGATIVE) 12/04/19 01:09 Urine Nitrite Negative (NEGATIVE) 12/04/19 01:09 Urine Bilirubin Negative (NEGATIVE) 12/04/19 01:09 Urine Urobilinogen Normal (NORMAL) 12/04/19 01:09 Ur Leukocyte Esterase Negative (NEGATIVE) 12/04/19 01:09 Urine RBC None seen /HPF (0-3) 12/04/19 01:09 Urine WBC None seen /HPF (0-5) 12/04/19 01:09 Ur Squamous Epith Cells Rare /HPF (NEGATIVE) 12/04/19 01:09 Urine Bacteria Negative /HPF (NEGATIVE) 12/04/19 01:09 Ur Culture Indicated? No/not indicated 12/04/19 01:09 Blood Type O NEGATIVE 12/04/19 11:25 - Plan (1) Pneumonia due to COVID-19 virus Status: Acute Plan: NS AT 75ML/HR, REMDESIVIR 100MG IV DAILY, LEVAQUIN 750MG IV DAILY, SOLU- MEDROL 80MG IV Q8H, DUONEBS TID, PULMICORT NEBS BID, MUCOMYST IN NEB [place] BID, PEPCID 20MG IV DAILY, PROTONIX 40MG IV DAILY, ROBITUSSIN DM 10 ML PO QID, TUSSIONEX 5ML PO Q12H, TESSALON PERLES TID, LOVENOX 30MG SC BID, HUMULIN R SLIDING SCALE, GLUCOPHAGE 1000MG PO BID, AMARYL 6MG PO DAILY, ZOCOR 20MG PO HS, NEURONTIN 300MG PO BID, FLONASE 1 SPRAY TO EACH NOSTRIL BID, NORVASC 10MG PO DAILY, ASPIRIN 81MG PO DAILY, ZINC 220MG PO BID, TRICOR 160MG PO DAILY, AND ZOFRAN 4MG IV Q6H PRN. SUPPLEMENTAL OXYGEN, SMART VEST, CONVALESCENT PLASMA WHEN AVAILABLE (2) Hypoxia Status: Acute (3) Diabetes mellitus, type 2 Status: Chronic Qualifiers: Diabetes mellitus ferry terminal agent insulin use: with assisted use Diabetes mellitus complication status: without complication Qualified Code(s): E11.9 - Type 2 diabetes mellitus without complications; Z79.4 - snf (current) use of insulin (4) Hypertension Status: Chronic Qualifiers: Hypertension type: essential hypertension Qualified Code(s): I10 - Essential (primary) hypertension (5) CAD (coronary artery disease) Status: Chronic Qualifiers: Coronary Disease-Associated Artery/Lesion type: [place] artery [place] vs. transplanted heart: [place] heart Associated angina: angina presence unspecified Qualified Code(s): I25.10 - Atherosclerotic heart disease of [place] coronary artery without angina pectoris (6) Hyperlipidemia Status: Chronic Qualifiers: Hyperlipidemia type: mixed hyperlipidemia Qualified Code(s): E78.2 - Mixed hyperlipidemia (7) GERD (gastroesophageal reflux disease) Status: Chronic Qualifiers: Esophagitis presence: esophagitis presence not specified Qualified Code(s): K21.9 - Gastro-esophageal reflux disease without esophagitis
[2019-12-05] MEDS ORDERED: NS 1/2 1000 ML IV 1,000 ML IV ONE (12:35)
[2019-12-05] MEDS ORDERED: BENADRYL INJ 50 MG VIAL IVP ONE (17:03)
[2019-12-05] MEDS: SNACK - Diabetic Appropriate PO SCH (20:00)
[2019-12-05] MEDS: ZOCOR TAB 20 MG PO SCH (21:15)
[2019-12-05] MEDS: REMDESIVIR (INVESTIGATIONAL DRUG GS-5734) 100 MG in NS 250 ML IV 250 ML IV SCH (21:15)
[2019-12-05] MEDS ORDERED: BENADRYL INJ 50 MG VIAL ONE (22:59)
[2019-12-05] MEDS ORDERED: NS 250 ML IV 250 ML IV ONE (23:00)
[2019-12-06] MEDS ORDERED: NS 1/2 1000 ML IV 1,000 ML IV ONE ×2 (03:11→20:00)
[2019-12-06] MEDS: NS 1/2 1000 ML IV 1,000 ML IV SCH ×4 (04:00→23:57)
[2019-12-06 05:30] LABS: BASOPHILS % (AUTO) 0.2 % (0.2-1.0); HEMATOCRIT 35.7 % (42.0-54.0); HEMOGLOBIN 11.4 g/dL (13.5-18.0); LYMPHOCYTES # (AUTO) 0.6 X10^3/uL (1.3-2.9); LYMPHOCYTES % (AUTO) 2.9 % (21.0-51.0); MEAN CORPUSCULAR HEMOGLOBIN 26.7 pg (27.0-34.0); MEAN CORPUSCULAR HGB CONC 31.9 g/dL (33.0-35.0); MEAN CORPUSCULAR VOLUME 83.9 fL (80.0-100.0); MONOCYTES # (AUTO) 0.9 x10^3/uL (0.3-0.8); MONOCYTES % (AUTO) 4.6 % (0.0-13.0); NEUTROPHILS # (AUTO) 18.6 x10^3/uL (2.2-4.8); NEUTROPHILS % (AUTO) 92.3 % (42.0-75.0); PLATELET COUNT 238 X10^3/uL (150.0-450.0); RED BLOOD COUNT 4.25 X10^6/uL (4.7-6.0); RED CELL DISTRIBUTION WIDTH 15.2 % (11.6-16.5)
[2019-12-06] MEDS: DUONEB 0.5 MG/3 MG (3 mL) NEB SCH ×4 (05:48→21:25)
[2019-12-06 06:04] LABS: WHITE BLOOD COUNT 20.2 X10^3/uL (3.6-10.0)
[2019-12-06 06:05] LABS: BAND NEUTROPHILS % 6 % (0-10); PLATELET MORPHOLOGY COMMENT NORMAL (NORMAL)
--- NOTE | 2019-12-06 06:06 | RAD ---
HISTORYSOBSTUDYCHEST, 1 [id number] trachea is midline. The cardiac silhouette is mildly enlarged. Changes of prior CABG surgery present.. Stable bilateral airspace opacities. No pleural effusion or pneumothorax.. The bony thorax is unremarkable.IMPRESSIONStable portable chestElectronically signed by: Nasir Jeter (Dec 06, 2019 06:05:00)
[2019-12-06 06:16] LABS: ALANINE AMINOTRANSFERASE 22 Units/L (12-78); ALBUMIN 2.8 g/dL (3.4-5.0); ALKALINE PHOSPHATASE 73 Units/L (46-116); ASPARTATE AMINO TRANSFERASE 40 Units/L (15-37); BLOOD UREA NITROGEN 29 mg/dL (7-18); CALCIUM 8.8 mg/dL (8.5-10.1); CARBON DIOXIDE 23.3 mmol/L (21-32); CHLORIDE 104 mmol/L (98-107); COR CA(FOR HYPOALB) 9.8 mg/dL (8.5-10.1); COR NA(FOR HYPERGLY) 142 mmol/L (136-145); CREATININE 1.23 mg/dL (0.70-1.30); SODIUM 138 mmol/L (136-145); TOTAL PROTEIN 6.4 g/dL (6.4-8.2); eGFR NON BLACK RACES 60 (>60)
[2019-12-06] MEDS: SOLU-Medrol 40 MG VIAL IVP SCH ×3 (06:17→21:45)
[2019-12-06] MEDS: TESSALON PERLES PO SCH ×3 (06:17→21:45)
[2019-12-06] MEDS: PULMICORT NEB TX 0.5 MG NEB SCH ×2 (08:35→21:25)
[2019-12-06] MEDS: MUCOMYST (RESPIRATORY USE ONLY) NEB SCH ×2 (08:35→21:25)
[2019-12-06] MEDS ORDERED: GLUCOPHAGE ONE ×2 (08:52→21:04)
[2019-12-06] MEDS ORDERED: LEVAQUIN PREMIX IV 750 MG 750 MG/150 ML BAG IV SCH (09:00)
[2019-12-06] MEDS ORDERED: VITAMIN D3 125 mcg (5,000 UNITS) PO SCH (09:00)
[2019-12-06] MEDS ORDERED: VITAMIN A PO SCH (09:00)
[2019-12-06 10:27] LABS: ABG BASE EXCESS -5.1 mmol/L (-2.0-2.0)
[2019-12-06 10:28] LABS: ABG ALLEN TEST POS; ABG HCO3 19.9 mmol/L (22-26); FRACTIONATED INSPIRED OXYGEN 40
[2019-12-06] MEDS: ZINC SULFATE PO SCH ×2 (11:00→21:45)
[2019-12-06] MEDS: PEPCID 20 MG IV PREMIX* 20 MG/50 ML BAG IV SCH (11:00)
[2019-12-06] MEDS: GLUCOPHAGE PO SCH ×2 (11:00→21:45)
[2019-12-06] MEDS: PROTONIX INJ 40 MG VIAL IVP SCH (11:00)
[2019-12-06] MEDS: TRICOR TAB 160 MG PO SCH (11:00)
[2019-12-06] MEDS: LOVENOX INJ 30 MG SYR SC SCH ×2 (11:00→21:45)
[2019-12-06] MEDS: NORVASC TAB 10 MG PO SCH (11:00)
[2019-12-06] MEDS: ROBITUSSIN DM PO SCH ×4 (11:00→21:45)
[2019-12-06] MEDS: NEURONTIN CAP 300 MG PO SCH ×2 (11:00→21:45)
[2019-12-06] MEDS: TUSSIONEX PENNKINETIC SUSP PO SCH ×2 (11:00→22:00)
[2019-12-06] MEDS: TAB-A-VITE PO SCH (11:00)
[2019-12-06] MEDS: FLONASE NASAL SPRAY ENOSTRIL SCH ×2 (11:00→21:45)
[2019-12-06] MEDS: AMARYL TAB 4 MG PO SCH (11:00)
[2019-12-06] MEDS: ASPIRIN EC 81 MG PO SCH (11:00)
--- NOTE | 2019-12-06 11:45 | PCM.PROG ---
Progress Note - Progress Note for Day of Date of Exam: 12/06/19 - Subjective Subjective: IS BEING TREATED FOR PNEUMONIA DUE TO COVID-19 AND HYPOXIA. TODAY, HE IS ALERT AND ORIENTED, LYING IN BED ON MORNING ROUNDS. HE CONTINUES WITH COMPLAINTS OF COUGH, SHORTNESS OF BREATH, AND WEAKNESS. HE IS CURRENTLY RECEIVING OXYGEN VIA NASAL CANNULA AT 3L/MIN. HE REPORTS SLIGHT IMPROVEMENT IN SYMPTOMS. ON EXAMINATION, HEART IS REGULAR IN RATE AND RHYTHM. BILATERAL LUNGS ARE NOTED WITH SCATTERED WHEEZING THROUGHOUT. ABDOMEN IS ROUND, SOFT, AND NON- TENDER WITH NORMAL BOWEL SOUNDS NOTED IN ALL QUADRANTS. HIS VITALS THIS MORNING ARE: 98.2-88-20-91%NC-165/68. LABS WERE OBTAINED. ABNORMAL LAB VALUES INCLUDE THE FOLLOWING: WBC 20.2, RBC 4.25, HGB 11.4, HCT 35.7, BUN 29, GLUCOSE 266, AST 40, CRP 53.80, ALBUMIN 2.8. AN ABG WAS OBTAINED AND REVEALED: PH 7.350, PC02 36, P02 61, HC03 19.9, 02 SAT 90, BASE EXCESS -5.1, FI02 40. BLOOD AND SPUTUM CULTURES ARE PENDING. A CHEST XRAY WAS OBTAINED AND REVEALED: The trachea is midline. The cardiac silhouette is mildly enlarged. Changes of prior CABG surgery present. Stable bilateral airspace opacities. No pleural effusion or pneumothorax. The bony thorax is unremarkable. HE IS CURRENTLY RECEIVING NS AT 75ML/HR, REMDESIVIR 100MG IV DAILY, LEVAQUIN 750MG IV Q48H, SOLU-MEDROL 80MG IV Q8H, DUONEBS TID, PULMICORT NEBS BID, MUCOMYST IN NEB [place] BID, PEPCID 20MG IV DAILY, PROTONIX 40MG IV DAILY, ROBITUSSIN DM 10 ML PO QID, TUSSIONEX 5ML PO Q12H, TESSALON PERLES TID, LOVENOX 30MG SC BID, HUMULIN R SLIDING SCALE, GLUCOPHAGE 1000MG PO BID, AMARYL 6MG PO DAILY, ZOCOR 20MG PO HS, NEURONTIN 300MG PO BID, FLONASE 1 SPRAY TO EACH NOSTRIL BID, NORVASC 10MG PO DAILY, ASPIRIN 81MG PO DAILY, ZINC 220MG PO BID, TRICOR 160MG PO DAILY, AND ZOFRAN 4MG IV Q6H PRN. HE RECEIVED ONE UNIT OF CONVALESCENT PLASMA YESTERDAY. HE WILL RECEIVE ANOTHER WHEN AVAILABLE. OTHERWISE, WE PLAN TO FOLLOW UP WITH AM LABS AND CONTINUE TO MONITOR. - Past Medical Family Social History Past Med/Fam/Surg Hx: No changes since H&P Allergies: Allergies penicillin G Adverse Reaction (Verified 07/05/17 18:34) - Review of Systems ROS: No change since H&P - Vital Signs and I&O's Vital Signs: Temperature 98.2 F Pulse Rate [Left] 88 Pulse Rate 89 Respiratory Rate 20 Blood Pressure [Right Arm] 165/68 Blood Pressure [Left Arm] 161/74 Blood Pressure 148/64 O2 Sat by Pulse Oximetry 91 Intake and Output: Intake & Output 12/03/19 12/04/19 12/05/19 12/06/19 11:59 11:59 11:59 11:59 Intake Total 1075 / 1075 3844 / 3844 3983 / 3983 Output Total 500 / 500 2200 / 2200 3800 / 3800 Balance 575 / 575 1644 / 1644 183 / 183 - Physical Exam Oriented: Normal Eyes: Normal Ear: Normal Nose: Normal Throat: Normal Respiratory: Generalized, Wheezes Cardiovascular: Normal : Normal Auscultation: Bowel Sounds: Normal Palpation: Normal Tenderness: Normal Skin: Normal Musculoskeletal: Normal Psychiatric: Normal Mood Description: Calm Affect: Normal Speech Pattern: Clear, Appropriate - Laboratory and Diagnostics Result Diagrams: 12/06/19 04:19 12/06/19 04:19 Labs: 12/04/19 01:09 Sputum - Expectorated Sputum Sputum Culture - Final 12/04/19 01:09 Sputum - Expectorated Sputum - Final 12/03/19 22:27 Blood Blood Culture - Preliminary 12/03/19 22:20 Blood Blood Culture - Preliminary Laboratory WBC 20.2 X10^3/uL (3.6-10.0) H D 12/06/19 04:19 RBC 4.25 X10^6/uL (4.7-6.0) L 12/06/19 04:19 Hgb 11.4 g/dL (13.5-18.0) L 12/06/19 04:19 Hct 35.7 % (42.0-54.0) L 12/06/19 04:19 MCV 83.9 fL (80.0-100.0) 12/06/19 04:19 MCH 26.7 pg (27.0-34.0) L 12/06/19 04:19 MCHC 31.9 g/dL (33.0-35.0) L 12/06/19 04:19 RDW 15.2 % (11.6-16.5) 12/06/19 04:19 Plt Count 238 X10^3/uL (150.0-450.0) 12/06/19 04:19 Plt Count Comment Adequate (ADEQUATE) 12/06/19 04:19 MPV 9.0 fL (7.4-11.0) 12/06/19 04:19 Neut % (Auto) 92.3 % (42.0-75.0) H 12/06/19 04:19 Lymph % (Auto) 2.9 % (21.0-51.0) L 12/06/19 04:19 [place] % (Auto) 4.6 % (0.0-13.0) 12/06/19 04:19 Eos % (Auto) 0.0 % (0.9-2.9) L 12/06/19 04:19 Baso % (Auto) 0.2 % (0.2-1.0) 12/06/19 04:19 Neut # (Auto) 18.6 x10^3/uL (2.2-4.8) H 12/06/19 04:19 Lymph # (Auto) 0.6 X10^3/uL (1.3-2.9) L 12/06/19 04:19 [place] # (Auto) 0.9 x10^3/uL (0.3-0.8) H 12/06/19 04:19 Eos # (Auto) 0.0 x10^3/uL (0.0-0.2) 12/06/19 04:19 Baso # (Auto) 0.0 X10^3/uL (0.0-0.1) 12/06/19 04:19 Absolute Nucleated RBC 0.0 /100WBC 12/06/19 04:19 Total Counted 100 12/06/19 04:19 Neutrophils % (Manual) 87 % (39-76) H 12/06/19 04:19 Band Neutrophils % 6 % (0-10) 12/06/19 04:19 Lymphocytes % (Manual) 3 % (13-43) L 12/06/19 04:19 Monocytes % (Manual) 4 % (4-9) 12/06/19 04:19 Plt Morphology Comment Normal (NORMAL) 12/06/19 04:19 RBC Morphology Normal (NORMAL) 12/06/19 04:19 Sample Site Rr 12/06/19 10:21 ABG pH 7.350 (7.35-7.45) 12/06/19 10:21 ABG pCO2 36.0 mmHg (35.0-45.0) 12/06/19 10:21 ABG pO2 61.0 mmHg (80.0-100.0) L 12/06/19 10:21 ABG HCO3 19.9 mmol/L (22-26) L 12/06/19 10:21 ABG O2 Saturation 90.0 % (90-100) 12/06/19 10:21 ABG Base Excess -5.1 mmol/L (-2.0-2.0) L 12/06/19 10:21 Den Test Pos 12/06/19 10:21 A-a Gradient 179.0 mmHg 12/06/19 10:21 FiO2 40 12/06/19 10:21 Blood Gas Comments [facility] 12/06/19 10:21 Sodium 138 mmol/L (136-145) 12/06/19 04:19 Corrected Sodium 142 mmol/L (136-145) 12/06/19 04:19 Potassium 4.7 mmol/L (3.5-5.1) 12/06/19 04:19 Chloride 104 mmol/L (98-107) 12/06/19 04:19 Carbon Dioxide 23.3 mmol/L (21-32) 12/06/19 04:19 BUN 29 mg/dL (7-18) H 12/06/19 04:19 Creatinine 1.23 mg/dL (0.70-1.30) 12/06/19 04:19 Est GFR (MDRD) Af Amer > 60 (>60) 12/06/19 04:19 Est GFR (MDRD) Non-Af 60 (>60) 12/06/19 04:19 Glucose 266 mg/dL (65-99) H 12/06/19 04:19 POC Glucose (mg/dL) 272 mg/dL (65-99) H 12/06/19 11:07 Lactic Acid 1.0 mmol/L (0.4-2.0) 12/03/19 22:20 Calcium 8.8 mg/dL (8.5-10.1) 12/06/19 04:19 Corrected Calcium 9.8 mg/dL (8.5-10.1) 12/06/19 04:19 Ferritin 281 ng/mL (26-388) 12/06/19 04:19 Total Bilirubin 0.30 mg/dL (0.2-1.0) 12/06/19 04:19 AST 40 Units/L (15-37) H 12/06/19 04:19 ALT 22 Units/L (12-78) 12/06/19 04:19 Alkaline Phosphatase 73 Units/L (46-116) 12/06/19 04:19 Lactate Dehydrogenase 259 Units/L (85-227) H 12/03/19 22:20 Creatine Kinase 32 Units/L (39-308) L 12/03/19 22:20 CK-MB (CK-2) < 1.0 ng/mL (0-4.0) 12/03/19 22:20 CK/CKMB % Calc 3.1 % (<4) 12/03/19 22:20 Troponin I < 0.02 ng/mL (0-1.5) 12/03/19 22:20 C-Reactive Protein 53.80 mg/L (0-3.0) H 12/06/19 04:19 B-Natriuretic Peptide 331 pg/mL (0-79) H 12/03/19 22:20 Total Protein 6.4 g/dL (6.4-8.2) 12/06/19 04:19 Albumin 2.8 g/dL (3.4-5.0) L 12/06/19 04:19 Globulin 3.6 g/dL (2.5-4.5) 12/06/19 04:19 Albumin/Globulin Ratio 0.8 Ratio (1.1-2.1) L 12/06/19 04:19 Specimen Type Clean catch urine 12/04/19 01:09 Urine Color Pale yellow (YELLOW) 12/04/19 01:09 Urine Appearance Clear (CLEAR) 12/04/19 01:09 Urine pH 5.0 (5.0 - 8.0) 12/04/19 01:09 Ur Specific [place] 1.005 (1.000-1.030) 12/04/19 01:09 Urine Protein 3+ (NEGATIVE) 12/04/19 01:09 Urine Glucose (UA) Negative (NEGATIVE) 12/04/19 01:09 Urine Ketones Negative (NEGATIVE) 12/04/19 01:09 Urine Occult Blood Negative (NEGATIVE) 12/04/19 01:09 Urine Nitrite Negative (NEGATIVE) 12/04/19 01:09 Urine Bilirubin Negative (NEGATIVE) 12/04/19 01:09 Urine Urobilinogen Normal (NORMAL) 12/04/19 01:09 Ur Leukocyte Esterase Negative (NEGATIVE) 12/04/19 01:09 Urine RBC None seen /HPF (0-3) 12/04/19 01:09 Urine WBC None seen /HPF (0-5) 12/04/19 01:09 Ur Squamous Epith Cells Rare /HPF (NEGATIVE) 12/04/19 01:09 Urine Bacteria Negative /HPF (NEGATIVE) 12/04/19 01:09 Ur Culture Indicated? No/not indicated 12/04/19 01:09 Blood Type O NEGATIVE 12/04/19 11:25 - Plan (1) Pneumonia due to COVID-19 virus Status: Acute Plan: NS AT 75ML/HR, REMDESIVIR 100MG IV DAILY, LEVAQUIN 750MG IV DAILY, SOLU- MEDROL 80MG IV Q8H, DUONEBS TID, PULMICORT NEBS BID, MUCOMYST IN NEB [place] BID, PEPCID 20MG IV DAILY, PROTONIX 40MG IV DAILY, ROBITUSSIN DM 10 ML PO QID, TUSSIONEX 5ML PO Q12H, TESSALON PERLES TID, LOVENOX 30MG SC BID, HUMULIN R SLIDING SCALE, GLUCOPHAGE 1000MG PO BID, AMARYL 6MG PO DAILY, ZOCOR 20MG PO HS, NEURONTIN 300MG PO BID, FLONASE 1 SPRAY TO EACH NOSTRIL BID, NORVASC 10MG PO DAILY, ASPIRIN 81MG PO DAILY, ZINC 220MG PO BID, TRICOR 160MG PO DAILY, AND ZOFRAN 4MG IV Q6H PRN. SUPPLEMENTAL OXYGEN, SMART VEST, CONVALESCENT PLASMA WHEN AVAILABLE (2) Hypoxia Status: Acute (3) Diabetes mellitus, type 2 Status: Chronic Qualifiers: Diabetes mellitus alf insulin use: with alf use Diabetes mellitus complication status: without complication Qualified Code(s): E11.9 - Type 2 diabetes mellitus without complications; Z79.4 - contact person (current) use of insulin (4) Hypertension Status: Chronic Qualifiers: Hypertension type: essential hypertension Qualified Code(s): I10 - Essential (primary) hypertension (5) CAD (coronary artery disease) Status: Chronic Qualifiers: Coronary Disease-Associated Artery/Lesion type: [place] artery [place] vs. transplanted heart: [place] heart Associated angina: angina presence unspecified Qualified Code(s): I25.10 - Atherosclerotic heart disease of [place] coronary artery without angina pectoris (6) Hyperlipidemia Status: Chronic Qualifiers: Hyperlipidemia type: mixed hyperlipidemia Qualified Code(s): E78.2 - Mixed hyperlipidemia (7) GERD (gastroesophageal reflux disease) Status: Chronic Qualifiers: Esophagitis presence: esophagitis presence not specified Qualified Code(s): K21.9 - Gastro-esophageal reflux disease without esophagitis
[2019-12-06 12:08] LABS: ABG BASE EXCESS -5.1 mmol/L (-2.0-2.0); ABG HCO3 19.9 mmol/L (22-26)
[2019-12-06 12:09] LABS: ABG ALLEN TEST POS
[2019-12-06] MEDS: SNACK - Diabetic Appropriate PO SCH (20:00)
[2019-12-06] MEDS: REMDESIVIR (INVESTIGATIONAL DRUG GS-5734) 100 MG in NS 250 ML IV 250 ML IV SCH (21:45)
[2019-12-06] MEDS: ZOCOR TAB 20 MG PO SCH (21:45)
[2019-12-07 01:10] LABS: CKMB % 3.2 % (<4); TROPONIN I 1.42 ng/mL (0-1.5)
[2019-12-07 01:13] LABS: CREATINE KINASE MB 12.8 ng/mL (0-4.0)
[2019-12-07 05:22] LABS: BASOPHILS % (AUTO) 0.1 % (0.2-1.0); HEMATOCRIT 36.4 % (42.0-54.0); HEMOGLOBIN 11.9 g/dL (13.5-18.0); LYMPHOCYTES # (AUTO) 0.3 X10^3/uL (1.3-2.9); LYMPHOCYTES % (AUTO) 1.3 % (21.0-51.0); MEAN CORPUSCULAR HEMOGLOBIN 26.8 pg (27.0-34.0); MEAN CORPUSCULAR HGB CONC 32.7 g/dL (33.0-35.0); MEAN CORPUSCULAR VOLUME 81.8 fL (80.0-100.0); MEAN PLATELET VOLUME 8.2 fL (7.4-11.0); MONOCYTES # (AUTO) 0.9 x10^3/uL (0.3-0.8); MONOCYTES % (AUTO) 3.9 % (0.0-13.0); NEUTROPHILS # (AUTO) 22.6 x10^3/uL (2.2-4.8); NEUTROPHILS % (AUTO) 94.7 % (42.0-75.0); PLATELET COUNT 267 X10^3/uL (150.0-450.0); RED BLOOD COUNT 4.45 X10^6/uL (4.7-6.0); RED CELL DISTRIBUTION WIDTH 15.2 % (11.6-16.5); WHITE BLOOD COUNT 23.9 X10^3/uL (3.6-10.0)
[2019-12-07] MEDS: TESSALON PERLES PO SCH ×2 (05:30→13:49)
[2019-12-07] MEDS: SOLU-Medrol 40 MG VIAL IVP SCH ×2 (05:30→13:48)
[2019-12-07 05:34] LABS: ABG BASE EXCESS 0.4 mmol/L (-2.0-2.0)
[2019-12-07 05:35] LABS: ABG ALLEN TEST POS
[2019-12-07 05:40] LABS: ALANINE AMINOTRANSFERASE 29 Units/L (12-78); ALBUMIN 2.7 g/dL (3.4-5.0); ALKALINE PHOSPHATASE 86 Units/L (46-116); ASPARTATE AMINO TRANSFERASE 54 Units/L (15-37); BLOOD UREA NITROGEN 29 mg/dL (7-18); CALCIUM 8.8 mg/dL (8.5-10.1); CARBON DIOXIDE 25.2 mmol/L (21-32); CHLORIDE 105 mmol/L (98-107); COR CA(FOR HYPOALB) 9.8 mg/dL (8.5-10.1); COR NA(FOR HYPERGLY) 144 mmol/L (136-145); CREATININE 1.07 mg/dL (0.70-1.30); SODIUM 140 mmol/L (136-145); TOTAL PROTEIN 6.3 g/dL (6.4-8.2); eGFR NON BLACK RACES > 60 (>60)
[2019-12-07] MEDS: DUONEB 0.5 MG/3 MG (3 mL) NEB SCH ×2 (05:49→13:35)
[2019-12-07 06:06] LABS: PLATELET MORPHOLOGY COMMENT NORMAL (NORMAL)
[2019-12-07 06:18] LABS: CKMB % 4.2 % (<4); CREATINE KINASE MB 15.6 ng/mL (0-4.0); TROPONIN I 1.91 ng/mL (0-1.5)
--- NOTE | 2019-12-07 06:18 | RAD ---
HISTORYFollow-up COVID-19STUDYChest AP [id number] patient is status post median sternotomy and CABG. The heart remains enlarged. No definite congestive heart failure is noted. Worsening bilateral now confluent alveolar infiltrates are present when compared to the prior examination even considering a difference in film technique. No pleural effusions are identified. Bony thorax is unremarkable.IMPRESSIONConsiderable worsening in the bilateral confluent alveolar infiltrates involving both lung nair.No change cardiomegaly without congestive heart failureElectronically signed by: DELFINO NASH (Dec 07, 2019 06:17:54)
[2019-12-07] MEDS ORDERED: NS 100 ML IV + SPIKE MINIBAG* 100 ML IV ONE (07:36)
[2019-12-07] MEDS ORDERED: CARDIZEM INJ 125 MG VIAL ONE ×2 (07:37→07:53)
[2019-12-07] MEDS ORDERED: CARDIZEM INJ 50 MG VIAL ONE (07:37)
[2019-12-07] MEDS ORDERED: HEPARIN SODIUM IN D5W 25,000 UNITS/500 ML BAG IV PRN (07:50)
[2019-12-07] MEDS: CARDIZEM INJ 125 MG VIAL 125 MG in NS 100 ML IV 100 ML IV PRN ×3 (08:10→15:08)
[2019-12-07] MEDS ORDERED: MORPHINE SULFATE INJ 2 MG INJ ONE (08:54)
[2019-12-07] MEDS ORDERED: MILK OF MAGNESIA PO SCH (09:00)
[2019-12-07] MEDS: PULMICORT NEB TX 0.5 MG NEB SCH (09:00)
[2019-12-07] MEDS ORDERED: HEPARIN SODIUM INJ 5000 UNITS ONE (09:06)
[2019-12-07] MEDS: MORPHINE SULFATE INJ 2 MG INJ IVP PRN ×3 (09:23→14:30)
[2019-12-07] MEDS ORDERED: HEPARIN SODIUM INJ 5000 UNITS IVP ONE (09:24)
[2019-12-07] MEDS ORDERED: PEPCID TAB 20 MG ONE (09:36)
[2019-12-07] MEDS ORDERED: GLUCOPHAGE ONE (09:37)
[2019-12-07] MEDS: AMARYL TAB 4 MG PO SCH (09:40)
[2019-12-07] MEDS: PROTONIX INJ 40 MG VIAL IVP SCH (09:41)
[2019-12-07] MEDS: TRICOR TAB 160 MG PO SCH (09:41)
[2019-12-07] MEDS: TAB-A-VITE PO SCH (09:41)
[2019-12-07] MEDS: NEURONTIN CAP 300 MG PO SCH (09:42)
[2019-12-07] MEDS: ZINC SULFATE PO SCH (09:43)
[2019-12-07] MEDS: GLUCOPHAGE PO SCH (09:43)
[2019-12-07] MEDS: NORVASC TAB 10 MG PO SCH (09:43)
[2019-12-07] MEDS: ASPIRIN EC 81 MG PO SCH (09:44)
[2019-12-07] MEDS: FLONASE NASAL SPRAY ENOSTRIL SCH (09:44)
[2019-12-07] MEDS ORDERED: PEPCID TAB 20 MG PO SCH (10:00)
[2019-12-07 10:05] LABS: CKMB % 4.1 % (<4)
[2019-12-07 10:11] LABS: CREATINE KINASE MB 13.6 ng/mL (0-4.0); TROPONIN I 1.99 ng/mL (0-1.5)
[2019-12-07] MEDS: ROBITUSSIN DM PO SCH ×2 (10:22→13:48)
[2019-12-07] MEDS ORDERED: NITROSTAT SL PRN (10:48)
[2019-12-07] MEDS ORDERED: LANOXIN INJ IVP ONE (10:48)
[2019-12-07] MEDS ORDERED: NITROSTAT ONE (11:01)
[2019-12-07] MEDS ORDERED: LANOXIN INJ ONE (11:02)
[2019-12-07] MEDS: TUSSIONEX PENNKINETIC SUSP PO SCH (11:25)
[2019-12-07] MEDS ORDERED: HumuLIN R SUBCUT PRN (12:00)
[2019-12-07] MEDS ORDERED: HumuLIN R ONE (12:04)
[2019-12-07] MEDS: NS 1/2 1000 ML IV 1,000 ML IV SCH (12:12)
[2019-12-07] MEDS: MUCOMYST (RESPIRATORY USE ONLY) NEB SCH (13:35)
[2019-12-07 15:31] VITALS: BP 143/78
[2019-12-07] MEDS ORDERED: SNACK - Diabetic Appropriate PO SCH (20:00)
[2019-12-07] MEDS ORDERED: COLACE CAP 100 MG PO SCH (21:00)
== END 2019-12-07 15:25 | disposition critical access hospital (66) | DRG 177 ==
LOC: ER 21:39 → MED/SURG 23:13 → OBS 23:18 → MED/SURG 23:19 → ICU 12-07 06:37
PROVIDERS: ADMIT Obstetrics & Gynecology Obstetrics; ATTEND Internal Medicine
DX: I25.10 Atherosclerotic heart disease of native coronary artery without angina pectoris; E11.9 Type 2 diabetes mellitus without complications; U07.1 COVID-19; E78.5 Hyperlipidemia, unspecified; J12.89 Other viral pneumonia; R07.89 Other chest pain; K21.9 Gastro-esophageal reflux disease without esophagitis; I48.91 Unspecified atrial fibrillation; Z95.1 Presence of aortocoronary bypass graft